=== PATIENT | female | born 1950 | race Caucasian/White ===

== ENCOUNTER 2018-11-10 08:59 | Emergency (ER) | payer MEDICARE, OTHER ==
[2018-11-10] MEDS ORDERED: Sodium Chloride 0.9% 10 ML Syringe FLUSH PRN (09:47)
[2018-11-10] MEDS ORDERED: fentaNYL 100 MCG/2 ML SDV IVPUSH ONE (09:47)
[2018-11-10] MEDS ORDERED: Cyclobenzaprine 10 MG Tab PO ONE (09:48)
--- NOTE | 2018-11-10 09:52 | EDM.PDOC ---
ED HPI GENERAL MEDICAL PROBLEM - General Chief Complaint: Back Pain or Injury Stated Complaint: POSSIBLE BROKEN RIBS Time Seen by Provider: 11/10/18 09:44 Source of Information: Reports: Patient, Family, RN Notes Reviewed History Limitations: Reports: No Limitations - History of Present Illness INITIAL COMMENTS - FREE TEXT/NARRATIVE: 67-year-old female presents emergency department today complaint of left flank pain, she fell approximately 5 days ago does have bruising on that side, her biggest issue is that her pain is not controlled she feels her abdomen has distended some and she's having difficulty taking a deep breath secondary to the pain Left Lower Posterior Back Pain Score (Numeric/FACES): 8 - Related Data Allergies Allergy/AdvReac Type Severity Reaction Status Date / Time No Known Allergies Allergy Verified 09/29/18 12:46 Home Meds: Home Meds Insulin Degludec [Tresiba Flextouch U-100] 15 unit SUBCUT DAILY 11/10/18 [ History] Loratadine [Claritin] 10 mg PO DAILY 11/10/18 [History] Omeprazole 40 mg PO DAILY 11/10/18 [History] Ranitidine HCl [Ranitidine] 150 mg PO DAILY 11/10/18 [History] SitaGLIPtin [Januvia] 100 mg PO DAILY 11/10/18 [History] atorvaSTATin [Lipitor] 10 mg PO DAILY 11/10/18 [History] metFORMIN [Glucophage XR] 10 mg PO BID 11/10/18 [History] Past Medical History Cardiovascular History: Reports: High Cholesterol, Hypertension Gastrointestinal History: Reports: GER[employer] History: Reports: Endocrine/Metabolic History: Reports: Diabetes, Type II - Past Surgical History HEENT Surgical History: Reports: Cataract Surgery Female Surgical History: Reports: Section Social & Family History - Tobacco Use Smoking Status *Q: Never Smoker - Caffeine Use Caffeine Use: Reports: Coffee - Alcohol Use Days Per Week of Alcohol Use: 7 Number of Drinks Per Day: 4 Total Drinks Per Week: 28 - Recreational Drug Use Recreational Drug Use: No ED ROS GENERAL - Review of Systems Review Of Systems: See Below Constitutional: Reports: No Symptoms HEENT: Reports: No Symptoms Respiratory: Reports: Shortness of Breath (With a deep breath) Cardiovascular: Reports: Chest Pain GI/Abdominal: Reports: Abdominal Pain (Left-sided left flank), Distension. Denies: Nausea, Vomiting : Reports: No Symptoms Musculoskeletal: Reports: No Symptoms Skin: Reports: Bruising (Left sided) Neurological: Reports: No Symptoms ED EXAM, GI/ABD - Physical Exam Exam: See Below Exam Limited By: No Limitations General Appearance: Alert, WD/WN, No Apparent Distress Respiratory/Chest: No Respiratory Distress GI/Abdominal Exam: Normal Bowel Sounds, Soft, No Distention, Tender (Along the left flank area) Course - Vital Signs Last Recorded V/S: Last Vital Signs Temp 96.5 F 11/10/18 09:17 Pulse 82 11/10/18 09:17 Resp 18 11/10/18 09:17 BP 202/79 H 11/10/18 09:17 Pulse Ox 97 11/10/18 09:17 - Orders/Labs/Meds Orders: Active Orders 24 hr Category Date Time Status Peripheral IV Care [RC] . DIRECTED Care 11/10/18 09:48 Active Lactated Ringers [Ringers, Lactated] 1,000 ml Med 11/10/18 10:00 Active IV .BOLUS Sodium Chloride 0.9% [Saline Flush] Med 11/10/18 09:47 Active 10 ml FLUSH ASDIRECTED PRN Peripheral IV Insertion Adult [OM.PC] Urgent Oth 11/10/18 09:47 Ordered Medication Orders Lactated Ringer's (Ringers, Lactated) 1,000 mls @ 500 mls/hr IV .BOLUS SARA Last Admin: 11/10/18 10:00 Dose: 500 mls/hr Sodium Chloride (Saline Flush) 10 ml FLUSH ASDIRECTED PRN PRN Reason: Keep Vein Open Labs: Laboratory Tests 11/10/18 11/10/18 Range/Units 09:55 09:55 WBC 7.4 (4.5-11.0) K/uL RBC 3.84 (3.30-5.50) M/uL Hgb 12.8 (12.0-15.0) g/dL Hct 39.3 (36.0-48.0) % MCV 102 H (80-98) fL MCH 33 H (27-31) pg MCHC 33 (32-36) % Plt Count 244 (150-400) K/uL Neut % (Auto) 62 (36-66) % Lymph % (Auto) 26 (24-44) % Titus % (Auto) 11 H (2-6) % Eos % (Auto) 1 L (2-4) % Baso % (Auto) 0 (0-1) % Sodium 143 (140-148) mmol/L Potassium 3.9 (3.6-5.2) mmol/L Chloride 104 (100-108) mmol/L Carbon Dioxide 29 (21-32) mmol/L Anion Gap 10.4 (5.0-14.0) mmol/L BUN 9 (7-18) mg/dL Creatinine 0.8 (0.6-1.0) mg/dL Est Cr Clr Drug Dosing 66.90 mL/min Estimated GFR (MDRD) > 60 (>60) Glucose 127 H (74-106) mg/dL Calcium 9.1 (8.5-10.1) mg/dL Meds: Medications Generic Name Dose Route Start Last Admin Trade Name Freq PRN Reason Stop Dose Admin Lactated Ringer's 1,000 mls @ 500 mls/hr 11/10/18 10:00 11/10/18 10:00 Ringers, Lactated IV 500 mls/hr .BOLUS SARA Administration Sodium Chloride 10 ml 11/10/18 09:47 Saline Flush FLUSH ASDIRECTED PRN Keep Vein Open Discontinued Medications Generic Name Dose Route Start Last Admin Trade Name Freq PRN Reason Stop Dose Admin Cyclobenzaprine HCl 10 mg 11/10/18 09:48 11/10/18 09:58 Flexeril PO 11/10/18 09:49 10 mg ONETIME ONE Administration Fentanyl 50 mcg 11/10/18 09:47 11/10/18 09:58 Sublimaze IVPUSH 11/10/18 09:48 50 mcg ONETIME ONE Administration Sodium Chloride 77 mls @ 3.5 mls/sec 11/10/18 09:53 11/10/18 10:08 Normal Saline IV 11/10/18 09:54 3.5 mls/sec ONETIME ONE Administration Iopamidol 123 ml 11/10/18 09:53 11/10/18 10:08 Isovue-300 (61%) IV 11/10/18 09:54 123 ml ONETIME ONE Administration Sodium Chloride 10 ml 11/10/18 09:53 11/10/18 10:04 Saline Flush FLUSH 11/10/18 09:54 10 ml ONETIME ONE Administration Departure - Departure Time of Disposition: 11:20 Disposition: Home, Self-Care 01 Condition: Fair Clinical Impression: Contusion, flank Qualifiers: Encounter type: initial encounter Qualified Code(s): S30.1XXA - Contusion of abdominal wall, initial encounter - Discharge Information Referrals: Crystal Nunez MD [Primary Care Provider] - Forms: ED Department Discharge Additional Instructions: Continue to use ibuprofen or Motrin for baseline pain control, use hydrocodone for breakthrough pain, use the Flexeril as needed for muscle relaxants, Please followup with your primary care provider in 5-7 days if not better, please call return to the emergency department with worsening of symptoms. - My Orders Last 24 Hours: My Active Orders 11/10/18 09:47 Sodium Chloride 0.9% [Saline Flush] 10 ml FLUSH ASDIRECTED PRN Peripheral IV Insertion Adult [OM.PC] Urgent 11/10/18 09:48 Peripheral IV Care [RC] . DIRECTED 11/10/18 10:00 Lactated Ringers [Ringers, Lactated] 1,000 ml IV .BOLUS - Assessment/Plan Last 24 Hours: My Active Orders 11/10/18 09:47 Sodium Chloride 0.9% [Saline Flush] 10 ml FLUSH ASDIRECTED PRN Peripheral IV Insertion Adult [OM.PC] Urgent 11/10/18 09:48 Peripheral IV Care [RC] . DIRECTED 11/10/18 10:00 Lactated Ringers [Ringers, Lactated] 1,000 ml IV .BOLUS Plan: Assessment Acuity = acute Site and laterality = contusion left flank Etiology = secondary to trauma Manifestations = [muscle spasms Location of injury = Home Lab values = [CBC, BMP unremarkable CT scan of the abdomen shows no injury Plan She had good relief with fentanyl and Flexeril in the emergency department, discharged home with hydrocodone 5/325 one tab by mouth 3 times a day when necessary total #10 also Flexeril 10 mg by mouth 3 times a day when necessary total #15 follow-up primary care 5-7 days if no improvement This note was dictated using [employer] recognition software please call with any questions on syntax or grammar.
[2018-11-10] MEDS ORDERED: Iopamidol 500 ML BOTTLE IV ONE (09:53)
[2018-11-10] MEDS: Sodium Chloride 0.9% 10 ML Syringe FLUSH ONE ×2 (09:59→10:04)
[2018-11-10] MEDS ORDERED: Lactated Ringers 1,000 ML IV SCH (10:00)
--- NOTE | 2018-11-10 10:49 | CRLCT ---
INDICATION: Trauma, left flank pain. TECHNIQUE: A CT volumetric acquisition was performed of the abdomen and pelvis during intravenous infusion of 123 cc of Isovue-300 nonionic intravenous contrast. COMPARISON: CT abdomen pelvis dated 09/29/2018 FINDINGS: There is no evidence pulmonary contusion or pneumothorax. There is no evidence of pericardial fluid or pleural fluid. There is minimal linear subsegmental atelectasis within the lung bases. There is mild generalized hepatic steatosis. There is no evidence of contusion or subcapsular hematoma within the liver or spleen. The pancreas appears normal. The gallbladder and bile ducts appear normal. The right kidney has normal morphology. 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 There is no evidence of contusion or hemorrhage within either kidney. There is no evidence retroperitoneal bleeding. 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 The small intestine appears normal. The appendix is visualized in the upper mid pelvis and appears normal. The patient`s colon also appears normal. Uterus and ovaries are of normal size. The urinary bladder appears intact. No fractures are noted within the pelvis or lumbar spine. There is disc degeneration at L5-S1. IMPRESSION: Stable CT scan of the abdomen pelvis with no evidence of visceral organ trauma. No evidence of left splenic or renal injury. Dictated by Олег Pang MD @ 11/10/2018 10:49:02 AM Please note that all CT scans at this facility use dose modulation, iterative reconstruction, and/or weight-based dosing when appropriate to reduce radiation dose to as low as reasonably achievable. Dictated by: Олег Pang MD @ 11/10/2018 10:49:10 (Electronically Signed)
== END 2018-11-10 11:28 | disposition home or self-care (01) ==
LOC: JP.ED 08:59
DX: S30.1XXA Contusion of abdominal wall, initial encounter (principal); M62.838 Other muscle spasm; I10 Essential (primary) hypertension; E11.9 Type 2 diabetes mellitus without complications; K21.9 Gastro-esophageal reflux disease without esophagitis; Z98.49 Cataract extraction status, unspecified eye; Z79.4 Long term (current) use of insulin; Z79.899 Other long term (current) drug therapy; W19.XXXA Unspecified fall, initial encounter
CPT/HCPCS: 36415; 74177; 80048; 85025; 96361; 96374; 99284; A9270; J3010; J7030; J7120; Q9967; 99283

== ENCOUNTER 2020-07-31 10:03 | Day surgery (SDC) | payer MEDICARE, OTHER ==
[~2020-07-31 10:03] MED LIST: Dextrose 5%-Lactated Ringers 1,000 ML IV SCH
[2020-07-31] MEDS ORDERED: Midazolam 1 MG/ML 2 ML SDV ONE (12:14)
[2020-07-31] MEDS ORDERED: fentaNYL 100 MCG/2 ML SDV ONE (12:14)
[2020-07-31] MEDS ORDERED: Propofol 200 MG/20 ML SDV ONE ×4 (12:14→14:34)
--- NOTE | 2020-08-14 16:36 | OR ---
DATE OF PROCEDURE: 07/31/2020 SURGEON: Thaddeus Manuel MD PREOPERATIVE DIAGNOSIS: History of melena and mucus-filled stool. POSTOPERATIVE DIAGNOSIS: 1. Upper endoscopy showing mild antral gastritis. 2. Flexible colonoscopy with multiple colorectal polyps including large rectal polyp. OPERATIVE PROCEDURES: 1. Esophagogastroduodenoscopy with antral biopsies for CLOtest. 2. Flexible colonoscopy with removal of multiple polyps by snare technique including large rectal polyp removed in fragments. ANESTHESIA: IV sedation. INDICATION FOR PROCEDURE: This is a 69-year-old female presenting with some melena as well as mucus-filled stools. Plan is to proceed with upper endoscopy with biopsies and/or polypectomy as indicated. Potential risks including bleeding and perforation were discussed, and the patient wishes to proceed. DETAILS OF PROCEDURE: The patient was taken to the operating room, placed in a left lateral decubitus position. IV sedation was administered, after which the upper GI endoscope was passed orally through the length of the esophagus into the stomach with retroflexion view of the fundus, and thereafter through the pyloric channel into the junction of the 3rd and 4th portions of the duodenum. Findings included normal hypopharynx, larynx, upper esophageal sphincter, and esophageal body. At the EG junction, no significant inflammation or hiatal hernia was noted. Within the stomach, there was some patchy redness in the antrum, otherwise the pyloric channel and proximal duodenum were unremarkable. At this point, biopsies were obtained from the antrum and sent for CLOtest for H pylori, minimal bleeding from biopsy sites was seen and the procedure then concluded. Attention was then taken to the colonoscopy. The initial digital rectal exam was performed, it was unremarkable. Colonoscope was then passed into the rectum with retroflexion revealing uncomplicated hemorrhoidal columns. Roughly 10 cm from the dentate line, the patient was noted to have a large rectal polyp. There were also 2 small rectal polyps present, and passed the scope to the level of the cecum, the prep was noted to be fairly good. There was a small hepatic flexure polyp and a polyp in the junction of the descending and sigmoid colon. These along with the polyps 2 and 3 in the rectum were all quite small and removed by means of cautery snare technique and sent for histologic evaluation. Apart from that, there were no areas of colitis or diverticular disease noted. The larger rectal polyp was removed with multiple fragments by means of cautery snare technique. Each of the fragments were retrieved and together sent for histologic evaluation. At the end of the procedure, there was a large area of polypectomy with good hemostasis. This appeared to be clear of any obvious polypoid tissue at the remaining edges of the area of resection. The procedure was then concluded. We will see the patient back next week and if there is invasive carcinoma within the polyp, then that area of polypectomy would need to be reexcised by means of a transanal excision. If it is adenomatous polyp up to including some high-grade dysplasia, one would need to repeat the colonoscopy in perhaps 6 months to make sure that there is a local recurrence of the process. We will see the patient back next week to review the pathologic findings and go over the subsequent followup and treatment plan. Thaddeus Manuel MD /[id number]
== END 2020-07-31 15:48 | disposition home or self-care (01) ==
LOC: JP.SDS 10:03
PROVIDERS: ATTEND Surgery
DX: D12.4 Benign neoplasm of descending colon (principal); D12.3 Benign neoplasm of transverse colon; D12.5 Benign neoplasm of sigmoid colon; D12.8 Benign neoplasm of rectum; K29.70 Gastritis, unspecified, without bleeding; K64.9 Unspecified hemorrhoids; E11.9 Type 2 diabetes mellitus without complications; E78.5 Hyperlipidemia, unspecified; I10 Essential (primary) hypertension; I73.9 Peripheral vascular disease, unspecified
CPT/HCPCS: 43239; 45385; 87081; 88305; J2250; J2704; J3010; J7121

== ENCOUNTER 2021-02-22 08:49 | Day surgery (SDC) | payer MEDICARE, OTHER ==
[~2021-02-22 08:49] MED LIST changes: +Midazolam 1 MG/ML 2 ML SDV ONE; +Propofol 200 MG/20 ML SDV ONE; +fentaNYL 100 MCG/2 ML SDV ONE
[2021-02-22] MEDS ORDERED: Propofol 200 MG/20 ML SDV ONE ×2 (11:27→11:37)
--- NOTE | 2021-02-26 11:15 | OR ---
DATE OF PROCEDURE: 02/22/2021 SURGEON: Thaddeus Manuel MD PREOPERATIVE DIAGNOSIS: History of multiple colon polyps with large rectal polyp removed in a piecemeal manner in July 2020. POSTOPERATIVE DIAGNOSES: 1. History of multiple colon polyps with large rectal polyp removed in a piecemeal manner in July 2020. 2. Three additional polyps and one reddened elongated ridge of colorectal tissue in the rectum. PROCEDURE PERFORMED: Flexible colonoscopy with: 1. Polypectomy by snare technique x3. 2. Biopsies of reddened ridge of low rectum. ANESTHESIA: IV sedation. INDICATION FOR PROCEDURE: A 70-year-old female presenting for followup colonoscopy. This past July, between 6 and 7 months ago, the patient underwent polypectomy with multiple polyps having been removed and one larger polyp in the relatively low rectum was removed by piecemeal manner, but there is still some question as to whether there has to be completeness of that removal. She is to undergo a followup colonoscopy at this time with biopsies or polypectomy as indicated. Potential risks including bleeding and perforation were discussed, and the patient wishes to proceed. DETAILS OF PROCEDURE: The patient was taken to the operating room and placed in a left lateral decubitus position. IV sedation was administered after which the initial digital rectal exam was performed and was unremarkable. Colonoscope was then passed to the level of the rectum with retroflexion revealing uncomplicated hemorrhoidal columns. The scope was eventually passed to the level of the cecum. The prep once again was reasonably adequate, but there was a fair bit of liquid stool which might have obscured some small polyps. This was reportedly on the previous colonoscopy as well. To that level, 3 additional polyps were identified, one in the distal sigmoid colon, one in the colon at 55 cm from the dentate line, and one in the mid rectum. These were all removed by means of polypectomy snare technique. These were all fairly small and likely were, at the time of previous examination, covered with some liquid stool. Just above the dentate line, there was a reddened ridge of mucosa I could find, perhaps 20% of the rectal circumference. Multiple attempts at obtaining a snare around this were unsuccessful due to the relatively flat nature of the lesion. Given this, multiple biopsies were obtained, and these were then sent for histologic evaluation. The procedure was then concluded. The plan will be to await the pathology on the low rectal biopsies. If this shows adenomatous tissue, the patient will likely need a secondary procedure. This would likely be amenable to an endoscopic excision with the aid of injection of saline underneath the mucosal field allowing it to be more raised. We will await the pathology report and call the patient. If the biopsies at the low rectal area come back neoplastic, then a colonoscopy will likely be done in one year given the multitude of polyps she is presenting with. Thaddeus Manuel MD /[id number]
== END 2021-02-22 12:47 | disposition home or self-care (01) ==
LOC: JP.SDS 08:49
PROVIDERS: ATTEND Surgery
DX: Z12.11 Encounter for screening for malignant neoplasm of colon (principal); D12.5 Benign neoplasm of sigmoid colon; K62.1 Rectal polyp; K64.9 Unspecified hemorrhoids; I10 Essential (primary) hypertension; E11.9 Type 2 diabetes mellitus without complications
CPT/HCPCS: 45385; 88305; J2250; J2704; J3010; J7121

== ENCOUNTER 2021-02-28 09:54 | Inpatient (IN) | payer MEDICARE, OTHER ==
[2021-02-28] MEDS ORDERED: Sodium Chloride 0.9% 1,000 ML IV SCH ×3 (10:15→12:45)
[2021-02-28] MEDS ORDERED: Ondansetron 4 MG/2 ML SDV IVPUSH ONE (10:23)
--- NOTE | 2021-02-28 10:28 | EDM.PDOC ---
ED HPI GENERAL MEDICAL PROBLEM - General Chief Complaint: Abdominal Pain Stated Complaint: STOMACH PAIN, VOMITING Time Seen by Provider: 02/28/21 10:24 Source of Information: Reports: Patient History Limitations: Reports: No Limitations - History of Present Illness INITIAL COMMENTS - FREE TEXT/NARRATIVE: pt arrived with severe generalized abdomanal pain. She has not held fluids down for 3 days. She is not passing gas and she has not had a stool since the . She did have a co,onoscopy done by Dr Manuel on the Feb. She did have 5 polyps removed at that time. Onset: Other ( started having problems about 3 days after the colonoscopy was done. ) Duration: Day(s): Location: Reports: Abdomen, Generalized Associated Symptoms: Reports: Loss of Appetite, Nausea/Vomiting, Weakness Abdomen Pain Score (Numeric/FACES): 7 - Related Data Allergies Allergy/AdvReac Type Severity Reaction Status Date / Time No Known Allergies Allergy Verified 02/28/21 10:45 Home Meds: Home Meds Omeprazole 40 mg PO DAILY 11/10/18 [History] atorvaSTATin [Lipitor] 80 mg PO DAILY 11/10/18 [History] metFORMIN [Glucophage XR] 500 mg PO BID 11/10/18 [History] Clopidogrel Bisulfate [Clopidogrel] 75 mg PO DAILY 07/26/20 [History] Insulin NPH Hum/Reg Insulin Hm [Novolin 70-30 Flexpen] 15 unit SQ BID 07/26/20 [History] Lisinopril/Hydrochlorothiazide [Lisinopril-Hctz 20-25 mg Tab] 1 each PO DAILY 07/26/20 [History] Past Medical History HEENT History: Reports: None Cardiovascular History: Reports: High Cholesterol, Hypertension, Other (See Below) Other Cardiovascular History: history of PAD; has stents in bilateral iliac arteries Gastrointestinal History: Reports: GERD Genitourinary History: Reports: None 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: Musculoskeletal History: Reports: Back Pain, Chronic, Fracture Neurological History: Reports: Concussion Endocrine/Metabolic History: Reports: Diabetes, Type II Dermatologic History: Reports: Eczema - Infectious Disease History Infectious Disease History: Reports: Chicken Pox, Mumps - Past Surgical History HEENT Surgical History: Reports: Cataract Surgery Cardiovascular Surgical History: Reports: None GI Surgical History: Reports: None, Colonoscopy, EGD, Polypectomy Female Surgical History: Reports: Section, Tubal Ligation Endocrine Surgical History: Reports: None Neurological Surgical History: Reports: None Musculoskeletal Surgical History: Reports: None Social & Family History - Family History Family Medical History: No Pertinent Family History - Caffeine Use Caffeine Use: Reports: Coffee ED ROS GENERAL - Review of Systems Review Of Systems: See Below Constitutional: Reports: No Symptoms HEENT: Reports: No Symptoms, Other (mouth is very dry. ) Respiratory: Reports: No Symptoms Cardiovascular: Reports: No Symptoms Endocrine: Reports: No Symptoms GI/Abdominal: Reports: Abdominal Pain, Nausea, Vomiting : Reports: No Symptoms Musculoskeletal: Reports: No Symptoms Skin: Reports: No Symptoms Neurological: Reports: No Symptoms, Dizziness, Weakness ED EXAM, GI/ABD - Physical Exam Exam: See Below Text/Narrative:: pt arrived with generalized abdomanal pain. She had a colonoscopy on the . # days after that she became nauseated and started having abdomanal pain. She has not had a bm since the . She has not been passing gas. She has not held anything down for 3 days. Exam Limited By: No Limitations General Appearance: Alert, Anxious, Severe Distress, Other (pt appears very dehydrated. She does admit to regular use of etoh. ) Ears: Normal TMs Nose: Normal Inspection Throat/Mouth: Other (mucous membranes are very dry. ) Head: Atraumatic Neck: Normal Inspection Respiratory/Chest: No Respiratory Distress Cardiovascular: Regular Rate, Rhythm, Tachycardia GI/Abdominal Exam: Other (pt has diffuse tenderness. ) (Female) Exam: Deferred Rectal (Female) Exam: Deferred Back Exam: Normal Inspection Extremities: Normal Inspection Neurological: Alert, Oriented, Normal Cognition Psychiatric: Anxious Course - Vital Signs Last Recorded V/S: Last Vital Signs Temp 36.6 C 02/28/21 12:21 Pulse 115 H 02/28/21 12:21 Resp 16 02/28/21 12:21 BP 130/77 02/28/21 12:21 Pulse Ox 99 02/28/21 12:21 - Orders/Labs/Meds Orders: Active Orders 24 hr Category Date Time Status Abdomen Ltd [US] Stat Exams 02/28/21 11:55 Ordered GLUCOSE RANDOM [CHEM] Stat Lab 02/28/21 12:29 Received UA W/MICROSCOPIC [URIN] Urgent Lab 02/28/21 10:02 Ordered Dextrose 50% in Water Med 02/28/21 11:12 Active 50 ml IVPUSH ASDIRECTED PRN Dextrose 50% in Water Med 02/28/21 11:13 Active 50 ml IVPUSH ASDIRECTED PRN Glucagon,Human Recombinant [GlucaGen] Med 02/28/21 11:12 Active 1 mg IM ASDIRECTED PRN Glucagon,Human Recombinant [GlucaGen] Med 02/28/21 11:13 Active 1 mg IM ASDIRECTED PRN Insulin Regular in 0.9 % NACL [Myxredlin in NS 100 UNIT Med 02/28/21 12:45 Ordered /100 ML] 100 unit in 100 ml IV ASDIRECTED Sodium Chloride 0.9% [Normal Saline] 1,000 ml Med 02/28/21 10:15 Active IV ASDIRECTED Sodium Chloride 0.9% [Normal Saline] 1,000 ml Med 02/28/21 10:45 Active IV ASDIRECTED Sodium Chloride 0.9% [Normal Saline] 1,000 ml Med 02/28/21 12:45 Active IV ASDIRECTED Medication Orders Dextrose/Water (50% Dextrose In Water 50 Ml Syringe) 50 ml IVPUSH ASDIRECTED PRN PRN Reason: Hypoglycemia Dextrose/Water (50% Dextrose In Water 50 Ml Syringe) 50 ml IVPUSH ASDIRECTED PRN PRN Reason: Hypoglycemia Glucagon (Glucagon,Human Recombinant 1 Mg Vial) 1 mg IM ASDIRECTED PRN PRN Reason: Hypoglycemia Glucagon (Glucagon,Human Recombinant 1 Mg Vial) 1 mg IM ASDIRECTED PRN PRN Reason: Hypoglycemia Sodium Chloride (Normal Saline) 1,000 mls @ 999 mls/hr IV ASDIRECTED [facility] Last Admin: 02/28/21 10:29 Dose: 999 mls/hr Documented by: [email or web address] Sodium Chloride (Normal Saline) 1,000 mls @ 999 mls/hr IV ASDIRECTED SARA Last Admin: 02/28/21 11:41 Dose: 999 mls/hr Documented by: NAVARROBRE Sodium Chloride (Normal Saline) 1,000 mls @ 500 mls/hr IV ASDIRECTED SARA Insulin Regular in 0.9 % NACL (Myxredlin In Ns 100 Unit/100 Ml) 100 unit in 100 mls @ 0 mls/hr IV ASDIRECTED [facility] Labs: Laboratory Tests 02/28/21 02/28/21 02/28/21 Range/Units 10:20 10:20 10:20 WBC 9.6 (4.5-11.0) K/uL RBC 4.18 (3.30-5.50) M/uL Hgb 13.3 (12.0-15.0) g/dL Hct 41.5 (36.0-48.0) % MCV 99 H (80-98) fL MCH 32 H (27-31) pg MCHC 32 (32-36) % Plt Count 224 (150-400) K/uL Neut % (Auto) 81.5 H (36-66) % Lymph % (Auto) 7.0 L (24-44) % [place] % (Auto) 11.1 H (2-6) % Eos % (Auto) 0.0 L (2-4) % Baso % (Auto) 0.4 (0-1) % VBG pH (7.350-7.450) Sodium (140-148) mmol/L Potassium (3.6-5.2) mmol/L Chloride (100-108) mmol/L Carbon Dioxide (21-32) mmol/L Anion Gap (5.0-14.0) mmol/L BUN (7-18) mg/dL Creatinine (0.6-1.0) mg/dL Est Cr Clr Drug Dosing mL/min Estimated GFR (MDRD) (>60) BUN/Creatinine Ratio Glucose (74-106) mg/dL POC Glucose (74-106) mg/dL Lactic Acid (0.7-2.1) mmol/L Calcium (8.5-10.1) mg/dL Total Bilirubin (0.2-1.0) mg/dL AST (15-37) U/L ALT (12-78) U/L Alkaline Phosphatase (46-116) U/L C-Reactive Protein (0.0-0.3) mg/dL Total Protein (6.4-8.2) g/dL Albumin (3.4-5.0) g/dL Globulin (2.3-3.5) g/dL Albumin/Globulin Ratio (1.2-2.2) Amylase (25-115) U/L Lipase (73-393) U/L 02/28/21 02/28/21 02/28/21 Range/Units 10:40 11:11 11:55 WBC (4.5-11.0) K/uL RBC (3.30-5.50) M/uL Hgb (12.0-15.0) g/dL Hct (36.0-48.0) % MCV (80-98) fL MCH (27-31) pg MCHC (32-36) % Plt Count (150-400) K/uL Neut % (Auto) (36-66) % Lymph % (Auto) (24-44) % [place] % (Auto) (2-6) % Eos % (Auto) (2-4) % Baso % (Auto) (0-1) % VBG pH 7.089 L (7.350-7.450) Sodium (140-148) mmol/L Potassium (3.6-5.2) mmol/L Chloride (100-108) mmol/L Carbon Dioxide (21-32) mmol/L Anion Gap (5.0-14.0) mmol/L BUN (7-18) mg/dL Creatinine (0.6-1.0) mg/dL Est Cr Clr Drug Dosing mL/min Estimated GFR (MDRD) (>60) BUN/Creatinine Ratio Glucose (74-106) mg/dL POC Glucose (74-106) mg/dL Lactic Acid 1.6 (0.7-2.1) mmol/L Calcium (8.5-10.1) mg/dL Total Bilirubin (0.2-1.0) mg/dL AST (15-37) U/L ALT (12-78) U/L Alkaline Phosphatase (46-116) U/L C-Reactive Protein (0.0-0.3) mg/dL Total Protein (6.4-8.2) g/dL Albumin (3.4-5.0) g/dL Globulin (2.3-3.5) g/dL Albumin/Globulin Ratio (1.2-2.2) Amylase 631 H (25-115) U/L Lipase 8941 H (73-393) U/L 02/28/21 Range/Units 12:45 WBC (4.5-11.0) K/uL RBC (3.30-5.50) M/uL Hgb (12.0-15.0) g/dL Hct (36.0-48.0) % MCV (80-98) fL MCH (27-31) pg MCHC (32-36) % Plt Count (150-400) K/uL Neut % (Auto) (36-66) % Lymph % (Auto) (24-44) % [place] % (Auto) (2-6) % Eos % (Auto) (2-4) % Baso % (Auto) (0-1) % VBG pH (7.350-7.450) Sodium (140-148) mmol/L Potassium (3.6-5.2) mmol/L Chloride (100-108) mmol/L Carbon Dioxide (21-32) mmol/L Anion Gap (5.0-14.0) mmol/L BUN (7-18) mg/dL Creatinine (0.6-1.0) mg/dL Est Cr Clr Drug Dosing mL/min Estimated GFR (MDRD) (>60) BUN/Creatinine Ratio Glucose (74-106) mg/dL POC Glucose 403 H* (74-106) mg/dL Lactic Acid (0.7-2.1) mmol/L Calcium (8.5-10.1) mg/dL Total Bilirubin (0.2-1.0) mg/dL AST (15-37) U/L ALT (12-78) U/L Alkaline Phosphatase (46-116) U/L C-Reactive Protein (0.0-0.3) mg/dL Total Protein (6.4-8.2) g/dL Albumin (3.4-5.0) g/dL Globulin (2.3-3.5) g/dL Albumin/Globulin Ratio (1.2-2.2) Amylase (25-115) U/L Lipase (73-393) U/L Meds: Medications Generic Name Dose Route Start Last Admin Trade Name Freq PRN Reason Stop Dose Admin Dextrose/Water 50 ml 02/28/21 11:12 50% Dextrose In Water 50 Ml Syringe IVPUSH ASDIRECTED PRN Hypoglycemia Dextrose/Water 50 ml 02/28/21 11:13 50% Dextrose In Water 50 Ml Syringe IVPUSH ASDIRECTED PRN Hypoglycemia Glucagon 1 mg 02/28/21 11:12 Glucagon,Human Recombinant 1 Mg Vial IM ASDIRECTED PRN Hypoglycemia Glucagon 1 mg 02/28/21 11:13 Glucagon,Human Recombinant 1 Mg Vial IM ASDIRECTED PRN Hypoglycemia Sodium Chloride 1,000 mls @ 999 mls/hr 02/28/21 10:15 02/28/21 10:29 Normal Saline IV 999 mls/hr ASDIRECTED SARA Administration Sodium Chloride 1,000 mls @ 999 mls/hr 02/28/21 10:45 02/28/21 11:41 Normal Saline IV 999 mls/hr ASDIRECTED SARA Administration Sodium Chloride 1,000 mls @ 500 mls/hr 02/28/21 12:45 Normal Saline IV ASDIRECTED [facility] Insulin Regular in 0.9 % NACL 100 unit in 100 mls @ 0 mls/hr 02/28/21 12:45 Myxredlin In Ns 100 Unit/100 Ml IV ASDIRECTED SARA 0.1 UNITS/KG/HR Discontinued Medications Generic Name Dose Route Start Last Admin Trade Name Brandon PRN Reason Stop Dose Admin Hydromorphone HCl 0.5 mg 02/28/21 10:23 02/28/21 10:40 Hydromorphone 0.5 Mg/0.5 Ml Syringe IVPUSH 02/28/21 10:24 0.5 mg ONETIME ONE Administration Hydromorphone HCl 0.5 mg 02/28/21 12:10 Hydromorphone 0.5 Mg/0.5 Ml Syringe IVPUSH 02/28/21 12:11 ONETIME ONE Insulin Human Regular 3 unit 02/28/21 11:12 02/28/21 11:53 Insulin Regular, Human 100 Units/Ml 3 Ml Vial IVPUSH 02/28/21 11:13 3 units ONETIME ONE Administration Insulin Human Regular 3 unit 02/28/21 11:13 02/28/21 11:54 Insulin Regular, Human 100 Units/Ml 3 Ml Vial SUBCUT 02/28/21 11:14 3 unit ONETIME ONE Administration Ondansetron HCl 4 mg 02/28/21 10:23 02/28/21 10:35 Ondansetron 4 Mg/2 Ml Sdv IVPUSH 02/28/21 10:24 4 mg ONETIME ONE Administration - Re-Assessments/Exams Free Text/Narrative Re-Assessment/Exam: 02/28/21 12:23 pt had a elevated creatnine so she had a cat scan of the abdoman without contrast. She was found to have a inflamed pancreas. She does not appear to have a perforation. Hetr bs is 599. Her ph is 7.089. She is on her second liter of f luid. She was given both iv and subq insulin and will probably need an insulin drip. Her amylase and lipase is pending. 02/28/21 12:25 Departure - Departure Time of Disposition: 12:47 Disposition: Admitted As Inpatient 68 Condition: Fair Clinical Impression: Pancreatitis, Diabetic ketoacidosis, Dehydration - Discharge Information Referrals: Lacey Portillo MD [Primary Care Provider] - Forms: ED Department Discharge Sepsis Event Note (ED) - Focused Exam Vital Signs: Vital Signs Temp Pulse Resp BP Pulse Ox 02/28/21 12:21 36.6 C 115 H 16 130/77 99 02/28/21 10:50 35.9 C L 116 H 20 148/74 H 100 - My Orders Last 24 Hours: My Active Orders 02/28/21 10:02 UA W/MICROSCOPIC [URIN] Urgent 02/28/21 10:15 Sodium Chloride 0.9% [Normal Saline] 1,000 ml IV ASDIRECTED 02/28/21 10:45 Sodium Chloride 0.9% [Normal Saline] 1,000 ml IV ASDIRECTED 02/28/21 11:12 Dextrose 50% in Water 50 ml IVPUSH ASDIRECTED PRN Glucagon,Human Recombinant [GlucaGen] 1 mg IM ASDIRECTED PRN 02/28/21 11:13 Dextrose 50% in Water 50 ml IVPUSH ASDIRECTED PRN Glucagon,Human Recombinant [GlucaGen] 1 mg IM ASDIRECTED PRN 02/28/21 11:55 Abdomen Ltd [US] Stat 02/28/21 12:29 GLUCOSE RANDOM [CHEM] Stat 02/28/21 12:45 Insulin Regular in 0.9 % NACL [Myxredlin in NS 100 UNIT/100 ML] 100 unit in 100 ml IV ASDIRECTED Sodium Chloride 0.9% [Normal Saline] 1,000 ml IV ASDIRECTED - Assessment/Plan Last 24 Hours: My Active Orders 02/28/21 10:02 UA W/MICROSCOPIC [URIN] Urgent 02/28/21 10:15 Sodium Chloride 0.9% [Normal Saline] 1,000 ml IV ASDIRECTED 02/28/21 10:45 Sodium Chloride 0.9% [Normal Saline] 1,000 ml IV ASDIRECTED 02/28/21 11:12 Dextrose 50% in Water 50 ml IVPUSH ASDIRECTED PRN Glucagon,Human Recombinant [GlucaGen] 1 mg IM ASDIRECTED PRN 02/28/21 11:13 Dextrose 50% in Water 50 ml IVPUSH ASDIRECTED PRN Glucagon,Human Recombinant [GlucaGen] 1 mg IM ASDIRECTED PRN 02/28/21 11:55 Abdomen Ltd [US] Stat 02/28/21 12:29 GLUCOSE RANDOM [CHEM] Stat 02/28/21 12:45 Insulin Regular in 0.9 % NACL [Myxredlin in NS 100 UNIT/100 ML] 100 unit in 100 ml IV ASDIRECTED Sodium Chloride 0.9% [Normal Saline] 1,000 ml IV ASDIRECTED
[2021-02-28] MEDS: HYDROmorphone 0.5 MG/0.5 ML Syringe IVPUSH ONE (10:40)
[2021-02-28] MEDS ORDERED: Glucagon,Human Recombinant 1 MG Vial IM PRN ×2 (11:12→11:13)
[2021-02-28] MEDS ORDERED: Insulin Regular, Human 100 Units/ML 3 ML Vial IVPUSH ONE (11:12)
[2021-02-28] MEDS ORDERED: 50% Dextrose in Water 50 ML Syringe IVPUSH PRN ×3 (11:12→13:11)
[2021-02-28] MEDS ORDERED: Insulin Regular, Human 100 Units/ML 3 ML Vial SUBCUT ONE (11:13)
--- NOTE | 2021-02-28 11:58 | CT ---
Abdomen Pelvis wo Cont CLINICAL HISTORY: Abdominal pain post colonoscopy COMPARISON: 2019. TECHNIQUE: Axial tomographic images are obtained from the dome of the diaphragm to the pubic symphysis without IV contrast enhancement. No oral contrast was used. The dosage reduction and iterative reconstruction techniques employed. FINDINGS: The lung bases are clear. No free air is identified. There is some diffuse fatty infiltration throughout the liver. There is mild nonspecific gallbladder distention.. The spleen has a normal size and shape. The pancreas is diffusely ill-defined. There is moderate stranding in the peripancreatic fat. There is some thickening and ill-definition of the duodenal loop. There is some stranding in the mesenteric fat extending down to the level of the umbilicus. There is a stable 2 cm low-attenuation nodule in the left adrenal gland with for focal calcification. The kidneys show no mass or hydronephrosis. There is some stranding in the perinephric fat on the left which may be related to pancreatitis. The aorta shows diffuse calcification without aneurysm. There is a long stent in the right common and external iliac artery. There is no suspicious retroperitoneal adenopathy. IMPRESSION: Diffuse changes of acute pancreatitis Diffuse inflammatory changes involving the duodenal loop Stable benign-appearing left adrenal nodule Moderate fatty infiltration the liver
[2021-02-28] MEDS ORDERED: HYDROmorphone 0.5 MG/0.5 ML Syringe IVPUSH ONE (12:10)
[2021-02-28] MEDS ORDERED: Potassium Chloride 20 MEQ in Premix Bag 1 BAG IV PRN ×4 (13:11)
[2021-02-28] MEDS ORDERED: Potassium Chloride 10% 20 MEQ/15 ML Soln 15 ML UD Cup PO PRN (13:11)
[2021-02-28] MEDS ORDERED: Magnesium Sulfate/Water 50 ML IV PRN (13:11)
[2021-02-28] MEDS ORDERED: Sodium Phosphate 60 MMOLE in Sodium Chloride 0.9% 250 ML IV PRN (13:11)
[2021-02-28] MEDS ORDERED: Sodium Chloride 0.9% 2,000 ML IV PRN (13:11)
--- NOTE | 2021-02-28 13:23 | PCM.HP.2 ---
H&P History of Present Illness - General Date of Service: 02/28/21 Admit Problem/Dx: Admission Diagnosis/Problem Admission Diagnosis/Problem Ketoacidosis Source of Information: Patient, Provider, RN Notes Reviewed History Limitations: Reports: No Limitations - History of Present Illness Initial Comments - Free Text/Narative: Ms. Aguirre is a 70-year-old woman who was admitted through the emergency department with abdominal pain, secondary to pancreatitis and diabetic ketoaci dosis. She has a known history of type 2 diabetes mellitus and denies any previous history of ketoacidosis. She underwent a colonoscopy last week and she reports since then she has not felt well with pain in her mid abdomen, as well as nausea and vomiting. Because of worsening symptoms she presented to the emergency department for further evaluation. CT scan of the abdomen shows evidence of acute pancreatitis with no other obvious abnormalities. Lipase and amylase levels are both significantly elevated. Laboratory studies also showed evidence of marked hyperglycemia associated with significant ketoacidosis. She has been started on continuous infusion of IV insulin while in the emergency department and has received several large fluid boluses. Abdomen Pain Score (Numeric/FACES): 7 - Related Data Allergies/Adverse Reactions: Allergies Allergy/AdvReac Type Severity Reaction Status Date / Time No Known Allergies Allergy Verified 02/28/21 10:45 Home Medications: Home Meds Omeprazole 40 mg PO DAILY 11/10/18 [History] atorvaSTATin [Lipitor] 80 mg PO DAILY 11/10/18 [History] metFORMIN [Glucophage XR] 500 mg PO BID 11/10/18 [History] Clopidogrel Bisulfate [Clopidogrel] 75 mg PO DAILY 07/26/20 [History] Insulin NPH Hum/Reg Insulin Hm [Novolin 70-30 Flexpen] 15 unit SQ BID 07/26/20 [History] Lisinopril/Hydrochlorothiazide [Lisinopril-Hctz 20-25 mg Tab] 1 each PO DAILY 07/26/20 [History] Past Medical History HEENT History: Reports: None Cardiovascular History: Reports: High Cholesterol, Hypertension, Other (See Below) Other Cardiovascular History: history of PAD; has stents in bilateral iliac arteries Gastrointestinal History: Reports: GERD Genitourinary History: Reports: None 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: Musculoskeletal History: Reports: Back Pain, Chronic, Fracture Neurological History: Reports: Concussion Endocrine/Metabolic History: Reports: Diabetes, Type II Dermatologic History: Reports: Eczema - Infectious Disease History Infectious Disease History: Reports: Chicken Pox, Mumps - Past Surgical History HEENT Surgical History: Reports: Cataract Surgery Cardiovascular Surgical History: Reports: None GI Surgical History: Reports: None, Colonoscopy, EGD, Polypectomy Female Surgical History: Reports: Section, Tubal Ligation Endocrine Surgical History: Reports: None Neurological Surgical History: Reports: None Musculoskeletal Surgical History: Reports: None Social & Family History - Family History Family Medical History: No Pertinent Family History - Tobacco Use Tobacco Use Status *Q: Former Tobacco User Years of Tobacco use: 40 Packs/Tins Daily: 2 Used Tobacco, but Quit: Yes Month/Year Tobacco Last Used: 2017 - Caffeine Use Caffeine Use: Reports: Coffee Other Caffeine Use: 2-3 cups per day - Alcohol Use Days Per Week of Alcohol Use: 5 Number of Drinks Per Day: 3 Total Drinks Per Week: 15 - Recreational Drug Use Recreational Drug Use: Yes H&P Review of Systems - Review of Systems: Review Of Systems: See Below General: Reports: Malaise, Weakness, Fatigue, Decreased Appetite. Denies: Fever, Chills HEENT: Reports: No Symptoms Pulmonary: Reports: No Symptoms Cardiovascular: Reports: No Symptoms Gastrointestinal: Reports: Abdominal Pain, Anorexia, Nausea, Vomiting. Denies: Difficulty Swallowing, Distension, Hematemesis, Hematochezia, Melena, Mucous in Stool Genitourinary: Reports: No Symptoms Musculoskeletal: Reports: No Symptoms Skin: Reports: No Symptoms Psychiatric: Reports: No Symptoms Neurological: Reports: No Symptoms Hematologic/Lymphatic: Reports: No Symptoms Immunologic: Reports: No Symptoms Exam - Exam Exam: See Below - Vital Signs Vital Signs: Last Vital Signs Temp 97.9 F 02/28/21 12:21 Pulse 115 H 02/28/21 12:21 Resp 16 02/28/21 12:21 BP 130/77 02/28/21 12:21 Pulse Ox 99 02/28/21 12:21 Weight: 183 lb - Exam Quality Assessment: DVT Prophylaxis General: Alert, Oriented, Cooperative, Moderate Distress HEENT: Conjunctiva Clear, Hearing Intact, Normal Nasal Septum, Posterior Pharynx Clear, Pupils Equal. No: Mucosa Moist & [place] Neck: Supple, Trachea Midline, +2 Carotid Pulse wo Bruit Lungs: Clear to Auscultation, Normal Respiratory Effort Cardiovascular: Regular Rhythm, Normal S1, Normal S2, Tachycardia. No: Systolic Murmur, Diastolic Murmur GI/Abdominal Exam: Soft, No Organomegaly, Distended, Tender. No: Guarding, Rigid, Rebound Back Exam: Normal Inspection, Full Range of Motion Extremities: Non-Tender, No Pedal Edema Skin: Warm, Dry, Intact Neurological: Cranial Nerves Intact, Strength Equal Bilateral, Normal Speech, Normal Tone, Sensation Intact. No: Focal Deficit Neuro Extensive - Mental Status: Alert, Oriented x3, Normal Mood/Affect, Normal Cognition, Memory Intact - Patient Data Lab Results Last 24 hrs: Laboratory Results - last 24 hr 02/28/21 02/28/21 02/28/21 Range/Units 10:20 10:20 10:20 WBC 9.6 (4.5-11.0) K/uL RBC 4.18 (3.30-5.50) M/uL Hgb 13.3 (12.0-15.0) g/dL Hct 41.5 (36.0-48.0) % MCV 99 H (80-98) fL MCH 32 H (27-31) pg MCHC 32 (32-36) % Plt Count 224 (150-400) K/uL Neut % (Auto) 81.5 H (36-66) % Lymph % (Auto) 7.0 L (24-44) % [place] % (Auto) 11.1 H (2-6) % Eos % (Auto) 0.0 L (2-4) % Baso % (Auto) 0.4 (0-1) % VBG pH (7.350-7.450) Sodium (140-148) mmol/L Potassium (3.6-5.2) mmol/L Chloride (100-108) mmol/L Carbon Dioxide (21-32) mmol/L Anion Gap (5.0-14.0) mmol/L BUN (7-18) mg/dL Creatinine (0.6-1.0) mg/dL Est Cr Clr Drug Dosing mL/min Estimated GFR (MDRD) (>60) BUN/Creatinine Ratio Glucose (74-106) mg/dL POC Glucose (74-106) mg/dL Lactic Acid (0.7-2.1) mmol/L Calcium (8.5-10.1) mg/dL Total Bilirubin (0.2-1.0) mg/dL AST (15-37) U/L ALT (12-78) U/L Alkaline Phosphatase (46-116) U/L C-Reactive Protein (0.0-0.3) mg/dL Total Protein (6.4-8.2) g/dL Albumin (3.4-5.0) g/dL Globulin (2.3-3.5) g/dL Albumin/Globulin Ratio (1.2-2.2) Amylase (25-115) U/L Lipase (73-393) U/L 02/28/21 02/28/21 02/28/21 Range/Units 10:40 11:11 11:55 WBC (4.5-11.0) K/uL RBC (3.30-5.50) M/uL Hgb (12.0-15.0) g/dL Hct (36.0-48.0) % MCV (80-98) fL MCH (27-31) pg MCHC (32-36) % Plt Count (150-400) K/uL Neut % (Auto) (36-66) % Lymph % (Auto) (24-44) % [place] % (Auto) (2-6) % Eos % (Auto) (2-4) % Baso % (Auto) (0-1) % VBG pH 7.089 L (7.350-7.450) Sodium (140-148) mmol/L Potassium (3.6-5.2) mmol/L Chloride (100-108) mmol/L Carbon Dioxide (21-32) mmol/L Anion Gap (5.0-14.0) mmol/L BUN (7-18) mg/dL Creatinine (0.6-1.0) mg/dL Est Cr Clr Drug Dosing mL/min Estimated GFR (MDRD) (>60) BUN/Creatinine Ratio Glucose (74-106) mg/dL POC Glucose (74-106) mg/dL Lactic Acid 1.6 (0.7-2.1) mmol/L Calcium (8.5-10.1) mg/dL Total Bilirubin (0.2-1.0) mg/dL AST (15-37) U/L ALT (12-78) U/L Alkaline Phosphatase (46-116) U/L C-Reactive Protein (0.0-0.3) mg/dL Total Protein (6.4-8.2) g/dL Albumin (3.4-5.0) g/dL Globulin (2.3-3.5) g/dL Albumin/Globulin Ratio (1.2-2.2) Amylase 631 H (25-115) U/L Lipase 8941 H (73-393) U/L 02/28/21 02/28/21 Range/Units 12:29 12:45 WBC (4.5-11.0) K/uL RBC (3.30-5.50) M/uL Hgb (12.0-15.0) g/dL Hct (36.0-48.0) % MCV (80-98) fL MCH (27-31) pg MCHC (32-36) % Plt Count (150-400) K/uL Neut % (Auto) (36-66) % Lymph % (Auto) (24-44) % Kent % (Auto) (2-6) % Eos % (Auto) (2-4) % Baso % (Auto) (0-1) % VBG pH (7.350-7.450) Sodium (140-148) mmol/L Potassium (3.6-5.2) mmol/L Chloride (100-108) mmol/L Carbon Dioxide (21-32) mmol/L Anion Gap (5.0-14.0) mmol/L BUN (7-18) mg/dL Creatinine (0.6-1.0) mg/dL Est Cr Clr Drug Dosing mL/min Estimated GFR (MDRD) (>60) BUN/Creatinine Ratio Glucose 440 H* (74-106) mg/dL POC Glucose 403 H* (74-106) mg/dL Lactic Acid (0.7-2.1) mmol/L Calcium (8.5-10.1) mg/dL Total Bilirubin (0.2-1.0) mg/dL AST (15-37) U/L ALT (12-78) U/L Alkaline Phosphatase (46-116) U/L C-Reactive Protein (0.0-0.3) mg/dL Total Protein (6.4-8.2) g/dL Albumin (3.4-5.0) g/dL Globulin (2.3-3.5) g/dL Albumin/Globulin Ratio (1.2-2.2) Amylase (25-115) U/L Lipase (73-393) U/L Result Diagrams: 02/28/21 10:20 02/28/21 17:20 Sepsis Event Note - Focused Exam Vital Signs: Vital Signs Temp Pulse Resp BP Pulse Ox 02/28/21 12:21 97.9 F 115 H 16 130/77 99 02/28/21 10:50 96.7 F L 116 H 20 148/74 H 100 *Q Meaningful Use (ADM) - VTE Risk Assess *Q Each Risk Factor Represents 1 Point: Obesity ( BMI > 25 kg/m2) Total Score 1 Point Risk Factors: 1 Each Risk Factor Represents 2 Points: Age 60 - 74 Years Total Score 2 Point Risk Factors: 2 Each Risk Factor Represents 3 Points: None Total Score 3 Point Risk Factors: 0 Each Risk Factor Represents 5 Points: None Total Score 5 Point Risk Factors: 0 Venous Thromboembolism Risk Factor Score *Q: 3 Problem List Initiated/Reviewed/Updated: Yes Orders Last 24hrs: Active Orders 24 hr Category Date Time Status Patient Status Manage Transfer [TRANSFER] Routine ADT 02/28/21 13:15 Ordered Blood Glucose Check, Bedside [RC] Q1H Care 02/28/21 13:11 Active Diabetes Education [RC] Click to Edit Care 02/28/21 13:11 Active Notify Provider Laboratory Res [RC] ASDIRECTED Care 02/28/21 13:12 Active Notify Provider Laboratory Res [RC] ASDIRECTED Care 02/28/21 13:13 Active Notify Provider Laboratory Res [RC] ASDIRECTED Care 02/28/21 13:13 Active Vital Signs [RC] Q1H Care 02/28/21 13:11 Active Consult to Diabetic Nurse Specialist [CONS] Urgent Cons 02/28/21 13:11 Active Abdomen Ltd [US] Stat Exams 02/28/21 11:55 Taken BASIC METABOLIC PANEL,BMP [CHEM] Q4H Lab 02/28/21 13:15 Ordered BASIC METABOLIC PANEL,BMP [CHEM] Q4H Lab 02/28/21 17:15 Ordered BASIC METABOLIC PANEL,BMP [CHEM] Q4H Lab 02/28/21 21:15 Ordered BASIC METABOLIC PANEL,BMP [CHEM] Q4H Lab 03/01/21 01:15 Ordered BASIC METABOLIC PANEL,BMP [CHEM] Q4H Lab 03/01/21 05:15 Ordered BASIC METABOLIC PANEL,BMP [CHEM] Q4 Lab 03/01/21 09:15 Ordered BASIC METABOLIC PANEL,BMP [CHEM] Stat Lab 02/28/21 13:04 Received MAGNESIUM [CHEM] Q6 Lab 02/28/21 13:15 Ordered MAGNESIUM [CHEM] Q6 Lab 02/28/21 19:15 Ordered MAGNESIUM [CHEM] Q6 Lab 03/01/21 01:15 Ordered MAGNESIUM [CHEM] Q6 Lab 03/01/21 07:15 Ordered MAGNESIUM [CHEM] Stat Lab 02/28/21 13:04 Received PHOSPHORUS [CHEM] Q6 Lab 02/28/21 13:15 Ordered PHOSPHORUS [CHEM] Q6 Lab 02/28/21 19:15 Ordered PHOSPHORUS [CHEM] Q6 Lab 03/01/21 01:15 Ordered PHOSPHORUS [CHEM] Q6 Lab 03/01/21 07:15 Ordered PHOSPHORUS [CHEM] Stat Lab 02/28/21 13:04 Received POTASSIUM,K [CHEM] Q2 Lab 02/28/21 15:15 Ordered POTASSIUM,K [CHEM] Q2 Lab 02/28/21 19:15 Ordered POTASSIUM,K [CHEM] Q2 Lab 02/28/21 23:15 Ordered POTASSIUM,K [CHEM] Q2 Lab 03/01/21 01:15 Ordered POTASSIUM,K [CHEM] Q2 Lab 03/01/21 03:15 Ordered POTASSIUM,K [CHEM] [facility] 03/01/21 05:15 Ordered POTASSIUM,K [CHEM] Q2 Lab 03/01/21 07:15 Ordered POTASSIUM,K [CHEM] Q2 Lab 03/01/21 09:15 Ordered POTASSIUM,K [CHEM] Q2 Lab 03/01/21 11:15 Ordered UA W/MICROSCOPIC [URIN] Urgent Lab 02/28/21 10:02 Ordered Dextrose 5%-0.45% NaCl [Dextrose 5%-1/2 NS] 1,000 ml Med 02/28/21 13:11 Active IV .CONTINUOUS Dextrose 50% in Water Med 02/28/21 11:13 Active 50 ml IVPUSH ASDIRECTED PRN Glucagon,Human Recombinant [GlucaGen] Med 02/28/21 11:13 Active 1 mg IM ASDIRECTED PRN Insulin Regular in 0.9 % NACL [Myxredlin in NS 100 UNIT Med 02/28/21 12:45 Active /100 ML] 100 unit in 100 ml IV ASDIRECTED Magnesium Sulfate/Water [Magnesium Sulfate in Water 2 Med 02/28/21 13:11 Active GM/50 ML] 50 ml IV ONETIME Potassium Chloride [KCL in Water 20 MEQ/100 ML] 20 meq Med 02/28/21 13:11 Ordered Premix Bag 1 bag IV ONETIME Potassium Chloride [KCL in Water 20 MEQ/100 ML] 20 meq Med 02/28/21 13:11 Ordered Premix Bag 1 bag IV Q2H Potassium Chloride [KCL in Water 20 MEQ/100 ML] 20 meq Med 02/28/21 13:11 Ordered Premix Bag 1 bag IV Q2H Potassium Chloride [Potassium Chloride Solution] Med 02/28/21 13:11 Ordered 20 meq PO NOW PRN Potassium Chloride [Potassium Chloride Solution] Med 02/28/21 13:11 Ordered 40 meq PO NOW PRN Potassium Chloride [Potassium Chloride Solution] Med 02/28/21 13:11 Ordered 40 meq PO Q2H PRN Sodium Chloride 0.9% [Normal Saline] 1,000 ml Med 02/28/21 10:15 Active IV ASDIRECTED Sodium Chloride 0.9% [Normal Saline] 1,000 ml Med 02/28/21 10:45 Active IV ASDIRECTED Sodium Chloride 0.9% [Normal Saline] 1,000 ml Med 02/28/21 12:45 Active IV ASDIRECTED Sodium Chloride 0.9% [Normal Saline] 2,000 ml Med 02/28/21 13:11 Ordered IV .CONTINUOUS Sodium Phosphate 60 mmole Med 02/28/21 13:11 Ordered Sodium Chloride 0.9% [Normal Saline] 250 ml IV ONETIME Medication Continuation Instructions [OM.PC] ASDIRECTED Oth 02/28/21 13:15 Ordered Medication Discontinuation Instructions [OM.PC] Oth 02/28/21 13:15 Ordered ASDIRECTED Resuscitation Status Routine Resus Stat 02/28/21 13:18 Ordered Medication Orders Dextrose/Water (50% Dextrose In Water 50 Ml Syringe) 50 ml IVPUSH ASDIRECTED PRN PRN Reason: Hypoglycemia Glucagon (Glucagon,Human Recombinant 1 Mg Vial) 1 mg IM ASDIRECTED PRN PRN Reason: Hypoglycemia Sodium Chloride (Normal Saline) 1,000 mls @ 999 mls/hr IV ASDIRECTED [facility] Last Admin: 02/28/21 10:29 Dose: 999 mls/hr Documented by: URSZULA Sodium Chloride (Normal Saline) 1,000 mls @ 999 mls/hr IV ASDIRECTED [facility] Last Admin: 02/28/21 11:41 Dose: 999 mls/hr Documented by: URSZULA Sodium Chloride (Normal Saline) 1,000 mls @ 500 mls/hr IV ASDIRECTED [facility] Insulin Regular in 0.9 % NACL (Myxredlin In Ns 100 Unit/100 Ml) 100 unit in 100 mls @ 8.301 mls/hr IV ASDIRECTED [facility]ARA; Protocol Sodium Chloride (Normal Saline) 2,000 mls @ 500 mls/hr IV .CONTINUOUS PRN PRN Reason: Blood Glucose Dextrose/Sodium Chloride (Dextrose 5%-1/2 Ns) 1,000 mls @ 150 mls/hr IV .CONTINUOUS PRN PRN Reason: Blood Glucose Potassium Chloride 20 meq/ (Premix) 100 mls @ 50 mls/hr IV ONETIME ONE Stop: 02/28/21 15:10 Potassium Chloride 20 meq/ (Premix) 100 mls @ 50 mls/hr IV Q2H PRN PRN Reason: Hypokalemia Potassium Chloride 20 meq/ (Premix) 100 mls @ 50 mls/hr IV Q2H PRN PRN Reason: Hypokalemia Magnesium Sulfate (Magnesium Sulfate In Water 2 Gm/50 Ml) 50 mls @ 25 mls/hr IV ONETIME PRN PRN Reason: low magnesium Sodium Phosphate 60 mmole/ (Sodium Chloride) 270 mls @ 62.5 mls/hr IV ONETIME PRN PRN Reason: Low phophorus Potassium Chloride (Potassium Chloride 10% 20 Meq/15 Ml Soln 15 Ml Ud Cup) 20 meq PO NOW PRN PRN Reason: Hypokalemia Potassium Chloride (Potassium Chloride 10% 20 Meq/15 Ml Soln 15 Ml Ud Cup) 40 meq PO NOW PRN PRN Reason: Hypokalemia Potassium Chloride (Potassium Chloride 10% 20 Meq/15 Ml Soln 15 Ml Ud Cup) 40 meq PO Q2H PRN PRN Reason: Hypokalemia Assessment/Plan Comment:: ASSESSMENT AND PLAN DIABETIC KETOACIDOSIS-no prior history of ketoacidosis, she has had type 2 diabetes mellitus for some time. Likely secondary to current acute pancreatitis. -IV fluids per ketoacidosis protocol -Continuous infusion of IV insulin per protocol -Monitoring and management of electrolytes per protocol ACUTE PANCREATITIS-she does admit to regular daily alcohol use which is likely the underlying cause. -N.p.o. -IV fluids as above -Pain medication as needed MAINTENANCE ISSUES -DVT prophylaxis; Lovenox 40 mg subcu daily -GI prophylaxis; not indicated -Paul catheter; not indicated -Nutrition; n.p.o. -Nicotine dependence; not required CODE STATUS-FULL CODE ADMISSION STATUS-patient will be admitted to inpatient status, expect at least a 2 night hospital stay for evaluation and management of problems as outlined above. At the time of this admission I do not reasonably expected evaluation and management of this problem will require more than a 96 hour hospital stay. DISPOSITION-anticipate discharge to home after the hospital stay. PRIMARY CARE PROVIDER-Dr. Portillo - Mortality Measure Prognosis:: Good
--- NOTE | 2021-02-28 13:46 | US ---
Abdomen Ltd CLINICAL HISTORY: Acute pancreatitis COMPARISON: Current CT. TECHNIQUE: Real-time images were obtained through the right upper quadrant. FINDINGS: The liver is free of mass or biliary dilatation. There is some increased parenchymal echogenicity. The gallbladder is free of filling defects or wall thickening.. The common bile duct measures 6 mm. The pancreas is obscured. The right kidney has a normal appearance. The IVC is normal. IMPRESSION: Increased hepatic echotexture suggests some fatty infiltration which is also seen on CT No mass or biliary dilatation Pancreas is obscured
[2021-02-28] MEDS: Potassium Chloride 10% 20 MEQ/15 ML Soln 15 ML UD Cup PO PRN (14:41)
[2021-02-28] MEDS: Dextrose 5%-0.45% NaCl 1,000 ML IV PRN ×2 (16:27→23:13)
[2021-02-28] MEDS ORDERED: Sodium Chloride 0.9% 10 ML Syringe FLUSH PRN (16:40)
[2021-02-28] MEDS ORDERED: Polyethylene Glycol 3350 Powder 17 GM Packet PO PRN (16:40)
[2021-02-28] MEDS ORDERED: Ondansetron 4 MG/2 ML SDV IV PRN (16:40)
[2021-02-28] MEDS ORDERED: Acetaminophen 325 MG Tab PO PRN (16:40)
[2021-02-28] MEDS: HYDROmorphone 0.5 MG/0.5 ML Syringe IVPUSH PRN (17:51)
[2021-02-28] MEDS: Enoxaparin 40 MG/0.4 ML Syringe SUBCUT SCH (17:55)
[2021-02-28] MEDS: Potassium Chloride 20 MEQ in Premix Bag 1 BAG IV PRN (20:27)
[2021-03-01] MEDS: LORazepam 1 MG Tab PO SCH ×5 (00:02→22:59)
[2021-03-01] MEDS: Potassium Chloride 20 MEQ in Premix Bag 1 BAG IV PRN ×2 (00:21→03:52)
[2021-03-01] MEDS: Dextrose 5%-0.45% NaCl 1,000 ML IV PRN ×3 (05:40→17:59)
[2021-03-01] MEDS: Pantoprazole 40 MG Tab.CR PO SCH (07:56)
[2021-03-01] MEDS: Insulin Regular in 0.9 % NACL 100 ML IV SCH (07:56)
[2021-03-01] MEDS ORDERED: atorvaSTATin 10 MG Tab PO SCH (09:00)
[2021-03-01] MEDS ORDERED: Potassium Chloride 20 MEQ, Lidocaine 1% 2 ML in Sodium Chloride 0.9% 100 ML IV ONE ×3 (09:00→16:00)
[2021-03-01] MEDS ORDERED: OMEPRAZOLE PO SCH (09:00)
[2021-03-01] MEDS: Insulin NPH/Insulin Regular,Human 70-30 100 Units/ML 10 ML Vial SUBCUT SCH ×2 (09:59→20:52)
[2021-03-01] MEDS: Hydrochlorothiazide 25 MG Tab PO SCH (10:01)
[2021-03-01] MEDS: Lisinopril 20 MG Tab PO SCH (10:02)
[2021-03-01] MEDS: Clopidogrel 75 MG Tab PO SCH (10:02)
[2021-03-01] MEDS: atorvaSTATin 20 MG Tab PO SCH (10:03)
[2021-03-01] MEDS: Potassium Chloride 10% 20 MEQ/15 ML Soln 15 ML UD Cup PO PRN ×2 (11:50→17:24)
--- NOTE | 2021-03-01 12:49 | PCM.PN ---
- General Info Date of Service: 03/01/21 Subjective Update: Ms. Aguirre has improved from admission, glucose levels under better control and ketoacidosis has improved significantly but not resolved. She remains on continuous infusion of insulin with regular laboratory testing. Abdominal pain has improved but also not resolved, there has been improvement in amylase and lipase levels. She has shown some evidence of alcohol withdrawal and is currently managed with alcohol withdrawal protocol. - Review of Systems General: Reports: Weakness, Fatigue. Denies: Fever, Chills Pulmonary: Reports: No Symptoms Cardiovascular: Reports: No Symptoms Gastrointestinal: Reports: Abdominal Pain. Denies: Difficulty Swallowing, Hematochezia, Melena, Nausea, Vomiting Genitourinary: Reports: No Symptoms - Patient Data Vitals - Most Recent: Last Vital Signs Temp 97.8 F 03/01/21 12:00 Pulse 110 H 03/01/21 06:00 Resp 20 03/01/21 12:00 BP 105/51 L 03/01/21 12:00 Pulse Ox 97 03/01/21 12:00 Weight - Most Recent: 186 lb 8.177 oz I&O - Last 24 Hours: Intake & Output 02/28/21 03/01/21 03/01/21 22:59 06:59 14:59 Intake Total 2420 2038 Output Total 0 1500 Balance 2420 2038 -1500 Lab Results Last 24 Hours: Laboratory Results - last 24 hr 02/28/21 02/28/21 02/28/21 Range/Units 12:29 12:45 13:04 WBC (4.5-11.0) K/uL RBC (3.30-5.50) M/uL Hgb (12.0-15.0) g/dL Hct (36.0-48.0) % MCV (80-98) fL MCH (27-31) pg MCHC (32-36) % Plt Count (150-400) K/uL Neut % (Auto) (36-66) % Lymph % (Auto) (24-44) % [place] % (Auto) (2-6) % Eos % (Auto) (2-4) % Baso % (Auto) (0-1) % Sodium (140-148) mmol/L Potassium (3.6-5.2) mmol/L Chloride (100-108) mmol/L Carbon Dioxide (21-32) mmol/L Anion Gap (5.0-14.0) mmol/L BUN (7-18) mg/dL Creatinine (0.6-1.0) mg/dL Est Cr Clr Drug Dosing mL/min Estimated GFR (MDRD) (>60) Glucose 440 H* (74-106) mg/dL POC Glucose 403 H* (74-106) mg/dL Calcium (8.5-10.1) mg/dL Phosphorus (2.5-4.9) mg/dL Magnesium 1.7 L (1.8-2.4) mg/dL Amylase (25-115) U/L Lipase (73-393) U/L 02/28/21 02/28/21 02/28/21 Range/Units 13:04 15:19 15:20 WBC (4.5-11.0) K/uL RBC (3.30-5.50) M/uL Hgb (12.0-15.0) g/dL Hct (36.0-48.0) % MCV (80-98) fL MCH (27-31) pg MCHC (32-36) % Plt Count (150-400) K/uL Neut % (Auto) (36-66) % Lymph % (Auto) (24-44) % [place] % (Auto) (2-6) % Eos % (Auto) (2-4) % Baso % (Auto) (0-1) % Sodium 131 L (140-148) mmol/L Potassium 3.6 3.6 (3.6-5.2) mmol/L Chloride 99 L (100-108) mmol/L Carbon Dioxide 10 L D (21-32) mmol/L Anion Gap 25.6 H (5.0-14.0) mmol/L BUN 17 D (7-18) mg/dL Creatinine 1.9 H D (0.6-1.0) mg/dL Est Cr Clr Drug Dosing 27.56 mL/min Estimated GFR (MDRD) 26 L (>60) Glucose 410 H* (74-106) mg/dL POC Glucose 284 H (74-106) mg/dL Calcium 8.3 L (8.5-10.1) mg/dL Phosphorus 3.0 (2.5-4.9) mg/dL Magnesium (1.8-2.4) mg/dL Amylase (25-115) U/L Lipase (73-393) U/L 02/28/21 02/28/21 02/28/21 Range/Units 16:16 17:20 18:09 WBC (4.5-11.0) K/uL RBC (3.30-5.50) M/uL Hgb (12.0-15.0) g/dL Hct (36.0-48.0) % MCV (80-98) fL MCH (27-31) pg MCHC (32-36) % Plt Count (150-400) K/uL Neut % (Auto) (36-66) % Lymph % (Auto) (24-44) % [place] % (Auto) (2-6) % Eos % (Auto) (2-4) % Baso % (Auto) (0-1) % Sodium 132 L (140-148) mmol/L Potassium 4.4 (3.6-5.2) mmol/L Chloride 103 (100-108) mmol/L Carbon Dioxide 12 L (21-32) mmol/L Anion Gap 21.4 H (5.0-14.0) mmol/L BUN 19 H (7-18) mg/dL Creatinine 1.8 H (0.6-1.0) mg/dL Est Cr Clr Drug Dosing 29.09 mL/min Estimated GFR (MDRD) 28 L (>60) Glucose 204 H (74-106) mg/dL POC Glucose 234 H 158 H (74-106) mg/dL Calcium 8.3 L (8.5-10.1) mg/dL Phosphorus (2.5-4.9) mg/dL Magnesium (1.8-2.4) mg/dL Amylase (25-115) U/L Lipase (73-393) U/L 02/28/21 02/28/21 02/28/21 Range/Units 19:10 19:20 20:04 WBC (4.5-11.0) K/uL RBC (3.30-5.50) M/uL Hgb (12.0-15.0) g/dL Hct (36.0-48.0) % MCV (80-98) fL MCH (27-31) pg MCHC (32-36) % Plt Count (150-400) K/uL Neut % (Auto) (36-66) % Lymph % (Auto) (24-44) % [place] % (Auto) (2-6) % Eos % (Auto) (2-4) % Baso % (Auto) (0-1) % Sodium (140-148) mmol/L Potassium 3.5 L (3.6-5.2) mmol/L Chloride (100-108) mmol/L Carbon Dioxide (21-32) mmol/L Anion Gap (5.0-14.0) mmol/L BUN (7-18) mg/dL Creatinine (0.6-1.0) mg/dL Est Cr Clr Drug Dosing mL/min Estimated GFR (MDRD) (>60) Glucose (74-106) mg/dL POC Glucose 185 H 206 H (74-106) mg/dL Calcium (8.5-10.1) mg/dL Phosphorus 2.0 L (2.5-4.9) mg/dL Magnesium 1.6 L (1.8-2.4) mg/dL Amylase (25-115) U/L Lipase (73-393) U/L 02/28/21 02/28/21 02/28/21 Range/Units 21:05 21:24 21:58 WBC (4.5-11.0) K/uL RBC (3.30-5.50) M/uL Hgb (12.0-15.0) g/dL Hct (36.0-48.0) % MCV (80-98) fL MCH (27-31) pg MCHC (32-36) % Plt Count (150-400) K/uL Neut % (Auto) (36-66) % Lymph % (Auto) (24-44) % [place] % (Auto) (2-6) % Eos % (Auto) (2-4) % Baso % (Auto) (0-1) % Sodium 132 L (140-148) mmol/L Potassium 3.5 L (3.6-5.2) mmol/L Chloride 101 (100-108) mmol/L Carbon Dioxide 16 L (21-32) mmol/L Anion Gap 18.5 H (5.0-14.0) mmol/L BUN 18 (7-18) mg/dL Creatinine 2.0 H (0.6-1.0) mg/dL Est Cr Clr Drug Dosing 26.18 mL/min Estimated GFR (MDRD) 25 L (>60) Glucose 244 H (74-106) mg/dL POC Glucose 209 H 236 H (74-106) mg/dL Calcium 8.5 (8.5-10.1) mg/dL Phosphorus (2.5-4.9) mg/dL Magnesium (1.8-2.4) mg/dL Amylase (25-115) U/L Lipase (73-393) U/L 02/28/21 02/28/21 02/28/21 Range/Units 23:12 23:24 23:58 WBC (4.5-11.0) K/uL RBC (3.30-5.50) M/uL Hgb (12.0-15.0) g/dL Hct (36.0-48.0) % MCV (80-98) fL MCH (27-31) pg MCHC (32-36) % Plt Count (150-400) K/uL Neut % (Auto) (36-66) % Lymph % (Auto) (24-44) % [place] % (Auto) (2-6) % Eos % (Auto) (2-4) % Baso % (Auto) (0-1) % Sodium (140-148) mmol/L Potassium 3.6 (3.6-5.2) mmol/L Chloride (100-108) mmol/L Carbon Dioxide (21-32) mmol/L Anion Gap (5.0-14.0) mmol/L BUN (7-18) mg/dL Creatinine (0.6-1.0) mg/dL Est Cr Clr Drug Dosing mL/min Estimated GFR (MDRD) (>60) Glucose (74-106) mg/dL POC Glucose 227 H 234 H (74-106) mg/dL Calcium (8.5-10.1) mg/dL Phosphorus (2.5-4.9) mg/dL Magnesium (1.8-2.4) mg/dL Amylase (25-115) U/L Lipase (73-393) U/L 03/01/21 03/01/21 03/01/21 Range/Units 00:58 01:27 02:02 WBC (4.5-11.0) K/uL RBC (3.30-5.50) M/uL Hgb (12.0-15.0) g/dL Hct (36.0-48.0) % MCV (80-98) fL MCH (27-31) pg MCHC (32-36) % Plt Count (150-400) K/uL Neut % (Auto) (36-66) % Lymph % (Auto) (24-44) % [place] % (Auto) (2-6) % Eos % (Auto) (2-4) % Baso % (Auto) (0-1) % Sodium 132 L (140-148) mmol/L Potassium 3.6 (3.6-5.2) mmol/L Chloride 102 (100-108) mmol/L Carbon Dioxide 17 L (21-32) mmol/L Anion Gap 16.6 H (5.0-14.0) mmol/L BUN 17 (7-18) mg/dL Creatinine 1.9 H (0.6-1.0) mg/dL Est Cr Clr Drug Dosing 27.56 mL/min Estimated GFR (MDRD) 26 L (>60) Glucose 248 H (74-106) mg/dL POC Glucose 226 H 247 H (74-106) mg/dL Calcium 8.3 L (8.5-10.1) mg/dL Phosphorus 1.3 L (2.5-4.9) mg/dL Magnesium 2.1 (1.8-2.4) mg/dL Amylase (25-115) U/L Lipase (73-393) U/L 03/01/21 03/01/21 03/01/21 Range/Units 02:56 03:21 03:51 WBC (4.5-11.0) K/uL RBC (3.30-5.50) M/uL Hgb (12.0-15.0) g/dL Hct (36.0-48.0) % MCV (80-98) fL MCH (27-31) pg MCHC (32-36) % Plt Count (150-400) K/uL Neut % (Auto) (36-66) % Lymph % (Auto) (24-44) % [place] % (Auto) (2-6) % Eos % (Auto) (2-4) % Baso % (Auto) (0-1) % Sodium (140-148) mmol/L Potassium 3.5 L (3.6-5.2) mmol/L Chloride (100-108) mmol/L Carbon Dioxide (21-32) mmol/L Anion Gap (5.0-14.0) mmol/L BUN (7-18) mg/dL Creatinine (0.6-1.0) mg/dL Est Cr Clr Drug Dosing mL/min Estimated GFR (MDRD) (>60) Glucose (74-106) mg/dL POC Glucose 242 H 220 H (74-106) mg/dL Calcium (8.5-10.1) mg/dL Phosphorus (2.5-4.9) mg/dL Magnesium (1.8-2.4) mg/dL Amylase (25-115) U/L Lipase (73-393) U/L 03/01/21 03/01/21 03/01/21 Range/Units 05:07 05:30 05:30 WBC 7.5 (4.5-11.0) K/uL RBC 3.35 (3.30-5.50) M/uL Hgb 10.8 L D (12.0-15.0) g/dL Hct 32.6 L (36.0-48.0) % MCV 97 (80-98) fL MCH 32 H (27-31) pg MCHC 33 (32-36) % Plt Count 159 (150-400) K/uL Neut % (Auto) 72.1 H (36-66) % Lymph % (Auto) 13.2 L (24-44) % [place] % (Auto) 14.3 H (2-6) % Eos % (Auto) 0.1 L (2-4) % Baso % (Auto) 0.3 (0-1) % Sodium 131 L (140-148) mmol/L Potassium 3.5 L (3.6-5.2) mmol/L Chloride 103 (100-108) mmol/L Carbon Dioxide 16 L (21-32) mmol/L Anion Gap 15.5 H (5.0-14.0) mmol/L BUN 16 (7-18) mg/dL Creatinine 1.9 H (0.6-1.0) mg/dL Est Cr Clr Drug Dosing 27.56 mL/min Estimated GFR (MDRD) 26 L (>60) Glucose 255 H (74-106) mg/dL POC Glucose 244 H (74-106) mg/dL Calcium 8.4 L (8.5-10.1) mg/dL Phosphorus (2.5-4.9) mg/dL Magnesium (1.8-2.4) mg/dL Amylase (25-115) U/L Lipase (73-393) U/L 03/01/21 03/01/21 03/01/21 Range/Units 05:30 05:56 06:59 WBC (4.5-11.0) K/uL RBC (3.30-5.50) M/uL Hgb (12.0-15.0) g/dL Hct (36.0-48.0) % MCV (80-98) fL MCH (27-31) pg MCHC (32-36) % Plt Count (150-400) K/uL Neut % (Auto) (36-66) % Lymph % (Auto) (24-44) % [place] % (Auto) (2-6) % Eos % (Auto) (2-4) % Baso % (Auto) (0-1) % Sodium (140-148) mmol/L Potassium (3.6-5.2) mmol/L Chloride (100-108) mmol/L Carbon Dioxide (21-32) mmol/L Anion Gap (5.0-14.0) mmol/L BUN (7-18) mg/dL Creatinine (0.6-1.0) mg/dL Est Cr Clr Drug Dosing mL/min Estimated GFR (MDRD) (>60) Glucose (74-106) mg/dL POC Glucose 231 H 228 H (74-106) mg/dL Calcium (8.5-10.1) mg/dL Phosphorus (2.5-4.9) mg/dL Magnesium (1.8-2.4) mg/dL Amylase 290 H D (25-115) U/L Lipase 2480 H (73-393) U/L 03/01/21 03/01/21 03/01/21 Range/Units 07:15 07:58 09:15 WBC (4.5-11.0) K/uL RBC (3.30-5.50) M/uL Hgb (12.0-15.0) g/dL Hct (36.0-48.0) % MCV (80-98) fL MCH (27-31) pg MCHC (32-36) % Plt Count (150-400) K/uL Neut % (Auto) (36-66) % Lymph % (Auto) (24-44) % [place] % (Auto) (2-6) % Eos % (Auto) (2-4) % Baso % (Auto) (0-1) % Sodium 131 L (140-148) mmol/L Potassium 3.6 3.4 L (3.6-5.2) mmol/L Chloride 103 (100-108) mmol/L Carbon Dioxide 18 L (21-32) mmol/L Anion Gap 13.4 (5.0-14.0) mmol/L BUN 17 (7-18) mg/dL Creatinine 1.9 H (0.6-1.0) mg/dL Est Cr Clr Drug Dosing 27.56 mL/min Estimated GFR (MDRD) 26 L (>60) Glucose 261 H (74-106) mg/dL POC Glucose 259 H (74-106) mg/dL Calcium 8.5 (8.5-10.1) mg/dL Phosphorus 1.5 L (2.5-4.9) mg/dL Magnesium 2.1 (1.8-2.4) mg/dL Amylase (25-115) U/L Lipase (73-393) U/L 03/01/21 03/01/21 03/01/21 Range/Units 09:15 09:51 10:56 WBC (4.5-11.0) K/uL RBC (3.30-5.50) M/uL Hgb (12.0-15.0) g/dL Hct (36.0-48.0) % MCV (80-98) fL MCH (27-31) pg MCHC (32-36) % Plt Count (150-400) K/uL Neut % (Auto) (36-66) % Lymph % (Auto) (24-44) % [place] % (Auto) (2-6) % Eos % (Auto) (2-4) % Baso % (Auto) (0-1) % Sodium (140-148) mmol/L Potassium (3.6-5.2) mmol/L Chloride (100-108) mmol/L Carbon Dioxide (21-32) mmol/L Anion Gap (5.0-14.0) mmol/L BUN (7-18) mg/dL Creatinine (0.6-1.0) mg/dL Est Cr Clr Drug Dosing mL/min Estimated GFR (MDRD) (>60) Glucose (74-106) mg/dL POC Glucose 244 H 240 H 192 H (74-106) mg/dL Calcium (8.5-10.1) mg/dL Phosphorus (2.5-4.9) mg/dL Magnesium (1.8-2.4) mg/dL Amylase (25-115) U/L Lipase (73-393) U/L 03/01/21 03/01/21 Range/Units 11:15 11:59 WBC (4.5-11.0) K/uL RBC (3.30-5.50) M/uL Hgb (12.0-15.0) g/dL Hct (36.0-48.0) % MCV (80-98) fL MCH (27-31) pg MCHC (32-36) % Plt Count (150-400) K/uL Neut % (Auto) (36-66) % Lymph % (Auto) (24-44) % [place] % (Auto) (2-6) % Eos % (Auto) (2-4) % Baso % (Auto) (0-1) % Sodium (140-148) mmol/L Potassium 3.4 L (3.6-5.2) mmol/L Chloride (100-108) mmol/L Carbon Dioxide (21-32) mmol/L Anion Gap (5.0-14.0) mmol/L BUN (7-18) mg/dL Creatinine (0.6-1.0) mg/dL Est Cr Clr Drug Dosing mL/min Estimated GFR (MDRD) (>60) Glucose (74-106) mg/dL POC Glucose 234 H (74-106) mg/dL Calcium (8.5-10.1) mg/dL Phosphorus (2.5-4.9) mg/dL Magnesium (1.8-2.4) mg/dL Amylase (25-115) U/L Lipase (73-393) U/L Med Orders - Current: Current Medications Acetaminophen (Acetaminophen 325 Mg Tab) 650 mg PO Q4H PRN PRN Reason: Pain (Mild 1-3)/fever Atorvastatin Calcium (Atorvastatin 20 Mg Tab) 80 mg PO DAILY [facility] Last Admin: 03/01/21 10:03 Dose: 80 mg Documented by: Clopidogrel Bisulfate (Clopidogrel 75 Mg Tab) 75 mg PO DAILY [facility] Last Admin: 03/01/21 10:02 Dose: 75 mg Documented by: Enoxaparin Sodium (Enoxaparin 40 Mg/0.4 Ml Syringe) 40 mg SUBCUT Q24H [facility] Last Admin: 02/28/21 17:55 Dose: 40 mg Documented by: Hydrochlorothiazide (Hydrochlorothiazide 25 Mg Tab) 25 mg PO DAILY [facility] Last Admin: 03/01/21 10:01 Dose: 25 mg Documented by: Hydromorphone HCl (Hydromorphone 0.5 Mg/0.5 Ml Syringe) 0.5 mg IVPUSH Q2H PRN PRN Reason: Pain Last Admin: 02/28/21 17:51 Dose: 0.5 mg Documented by: Sodium Chloride (Normal Saline) 2,000 mls @ 500 mls/hr IV .CONTINUOUS PRN PRN Reason: Blood Glucose Last Admin: 02/28/21 14:24 Dose: 500 mls/hr Documented by: Dextrose/Sodium Chloride (Dextrose 5%-1/2 Ns) 1,000 mls @ 150 mls/hr IV . CONTINUOUS PRN PRN Reason: Blood Glucose Last Admin: 03/01/21 11:53 Dose: 150 mls/hr Documented by: Potassium Chloride 20 meq/ (Premix) 100 mls @ 50 mls/hr IV ASDIRECTED PRN PRN Reason: LOW POTASSIUM Last Admin: 03/01/21 03:52 Dose: 50 mls/hr Documented by: Potassium Chloride 20 meq/ (Premix) 100 mls @ 50 mls/hr IV Q2H PRN PRN Reason: Hypokalemia Potassium Chloride 20 meq/ (Premix) 100 mls @ 50 mls/hr IV Q2H PRN PRN Reason: Hypokalemia Magnesium Sulfate (Magnesium Sulfate In Water 2 Gm/50 Ml) 50 mls @ 25 mls/hr IV ONETIME PRN PRN Reason: low magnesium Last Admin: 02/28/21 20:04 Dose: 25 mls/hr Documented by: Sodium Phosphate 60 mmole/ (Sodium Chloride) 270 mls @ 62.5 mls/hr IV ONETIME PRN PRN Reason: Low phophorus Insulin Regular in 0.9 % NACL (Myxredlin In Ns 100 Unit/100 Ml) 100 mls @ 8.301 mls/hr IV ASDIRECTED SARA; Protocol Last Infusion: 03/01/21 11:59 Dose: 0.05 units/kg/hr, 4 mls/hr Documented by: Potassium Chloride 20 meq/Lidocaine HCl 2 ml/ Sodium Chloride 112 mls @ 56 mls/hr IV ONETIME ONE Stop: 03/01/21 13:59 Last Admin: 03/01/21 12:01 Dose: 56 mls/hr Documented by: Insulin Human Isoph/Insulin Regular (Insulin Nph/Insulin Regular,Human 70-30 100 Units/Ml 10 Ml Vial) 15 units SUBCUT BID SARA Last Admin: 03/01/21 09:59 Dose: 15 units Documented by: Lisinopril (Lisinopril 20 Mg Tab) 20 mg PO DAILY [facility] Last Admin: 03/01/21 10:02 Dose: 20 mg Documented by: Lorazepam (Lorazepam 2 Mg/Ml Sdv) 0 mg IV ASDIRECTED SARA; Protocol Lorazepam (Lorazepam 1 Mg Tab) 0 mg PO ASDIRECTED SARA; Protocol Last Admin: 03/01/21 11:49 Dose: 1 mg Documented by: Ondansetron HCl (Ondansetron 4 Mg/2 Ml Sdv) 4 mg IV Q4H PRN PRN Reason: Nausea/Vomiting Pantoprazole Sodium (Pantoprazole 40 Mg Tab.Cr) 40 mg PO ACBREAKFAST [facility] Last Admin: 03/01/21 07:56 Dose: 40 mg Documented by: Polyethylene Glycol (Polyethylene Glycol 3350 Powder 17 Gm Packet) 17 gm PO DAILY PRN PRN Reason: Constipation Potassium Chloride (Potassium Chloride 10% 20 Meq/15 Ml Soln 15 Ml Ud Cup) 20 meq PO NOW PRN PRN Reason: Hypokalemia Last Admin: 02/28/21 14:41 Dose: 20 meq Documented by: Potassium Chloride (Potassium Chloride 10% 20 Meq/15 Ml Soln 15 Ml Ud Cup) 40 meq PO NOW PRN PRN Reason: Hypokalemia Last Admin: 03/01/21 11:50 Dose: 20 meq Documented by: Potassium Chloride (Potassium Chloride 10% 20 Meq/15 Ml Soln 15 Ml Ud Cup) 40 meq PO Q2H PRN PRN Reason: Hypokalemia Sodium Chloride (Sodium Chloride 0.9% 10 Ml Syringe) 10 ml FLUSH ASDIRECTED PRN PRN Reason: Keep Vein Open Discontinued Medications Dextrose/Water (50% Dextrose In Water 50 Ml Syringe) 50 ml IVPUSH ASDIRECTED PRN PRN Reason: Hypoglycemia Glucagon (Glucagon,Human Recombinant 1 Mg Vial) 1 mg IM ASDIRECTED PRN PRN Reason: Hypoglycemia Hydromorphone HCl (Hydromorphone 0.5 Mg/0.5 Ml Syringe) 0.5 mg IVPUSH ONETIME ONE Stop: 02/28/21 10:24 Last Admin: 02/28/21 10:40 Dose: 0.5 mg Documented by: Hydromorphone HCl (Hydromorphone 0.5 Mg/0.5 Ml Syringe) 0.5 mg IVPUSH ONETIME ONE Stop: 02/28/21 12:11 Last Admin: 02/28/21 14:12 Dose: 0.5 mg Documented by: Sodium Chloride (Normal Saline) 1,000 mls @ 999 mls/hr IV ASDIRECTED SARA Last Admin: 02/28/21 10:29 Dose: 999 mls/hr Documented by: Sodium Chloride (Normal Saline) 1,000 mls @ 999 mls/hr IV ASDIRECTED SARA Last Admin: 02/28/21 11:41 Dose: 999 mls/hr Documented by: Sodium Chloride (Normal Saline) 1,000 mls @ 500 mls/hr IV ASDIRECTED [facility] Insulin Regular in 0.9 % NACL (Myxredlin In Ns 100 Unit/100 Ml) 100 unit in 100 mls @ 8.301 mls/hr IV ASDIRECTED SARA; Protocol Last Infusion: 03/01/21 05:58 Dose: 0.05 units/kg/hr, 4 mls/hr Documented by: Potassium Chloride 20 meq/Lidocaine HCl 2 ml/ Sodium Chloride 112 mls @ 56 mls/hr IV ONETIME ONE Stop: 03/01/21 10:59 Last Admin: 03/01/21 08:50 Dose: 56 mls/hr Documented by: Insulin Human Regular (Insulin Regular, Human 100 Units/Ml 3 Ml Vial) 3 unit IVPUSH ONETIME ONE Stop: 02/28/21 11:13 Last Admin: 02/28/21 11:53 Dose: 3 units Documented by: Insulin Human Regular (Insulin Regular, Human 100 Units/Ml 3 Ml Vial) 3 unit SUBCUT ONETIME ONE Stop: 02/28/21 11:14 Last Admin: 02/28/21 11:54 Dose: 3 unit Documented by: Lidocaine HCl (Lidocaine 1% 5 Ml Sdv) 2 ml INJECT ONETIME ONE Stop: 02/28/21 20:10 Last Admin: 02/28/21 20:28 Dose: 2 ml Documented by: Lidocaine HCl (Lidocaine 1% 5 Ml Sdv) Confirm Administered Dose 5 ml .ROUTE .STK-MED ONE Stop: 02/28/21 20:16 Last Admin: 02/28/21 20:28 Dose: Not Given Documented by: Lidocaine HCl (Lidocaine 1% 5 Ml Sdv) 2 ml INJECT ONETIME ONE Stop: 03/01/21 03:49 Last Admin: 03/01/21 03:53 Dose: 2 ml Documented by: Lidocaine HCl (Lidocaine 1% 5 Ml Sdv) Confirm Administered Dose 5 ml .ROUTE .STK-MED ONE Stop: 03/01/21 03:50 Last Admin: 03/01/21 03:53 Dose: Not Given Documented by: Ondansetron HCl (Ondansetron 4 Mg/2 Ml Sdv) 4 mg IVPUSH ONETIME ONE Stop: 02/28/21 10:24 Last Admin: 02/28/21 10:35 Dose: 4 mg Documented by: - Exam Quality Assessment: DVT Prophylaxis General: Alert, Oriented, Cooperative, Moderate Distress Lungs: Clear to Auscultation, Normal Respiratory Effort Cardiovascular: Regular Rhythm, No Murmurs, Tachycardia GI/Abdominal Exam: Soft, No Organomegaly, Distended, Tender. No: Guarding, Rigid, Rebound Extremities: Non-Tender, No Pedal Edema - Patient Data Lab Results Last 24 hrs: Laboratory Results - last 24 hr 02/28/21 02/28/21 02/28/21 Range/Units 12:29 12:45 13:04 WBC (4.5-11.0) K/uL RBC (3.30-5.50) M/uL Hgb (12.0-15.0) g/dL Hct (36.0-48.0) % MCV (80-98) fL MCH (27-31) pg MCHC (32-36) % Plt Count (150-400) K/uL Neut % (Auto) (36-66) % Lymph % (Auto) (24-44) % [place] % (Auto) (2-6) % Eos % (Auto) (2-4) % Baso % (Auto) (0-1) % Sodium (140-148) mmol/L Potassium (3.6-5.2) mmol/L Chloride (100-108) mmol/L Carbon Dioxide (21-32) mmol/L Anion Gap (5.0-14.0) mmol/L BUN (7-18) mg/dL Creatinine (0.6-1.0) mg/dL Est Cr Clr Drug Dosing mL/min Estimated GFR (MDRD) (>60) Glucose 440 H* (74-106) mg/dL POC Glucose 403 H* (74-106) mg/dL Calcium (8.5-10.1) mg/dL Phosphorus (2.5-4.9) mg/dL Magnesium 1.7 L (1.8-2.4) mg/dL Amylase (25-115) U/L Lipase (73-393) U/L 02/28/21 02/28/21 02/28/21 Range/Units 13:04 15:19 15:20 WBC (4.5-11.0) K/uL RBC (3.30-5.50) M/uL Hgb (12.0-15.0) g/dL Hct (36.0-48.0) % MCV (80-98) fL MCH (27-31) pg MCHC (32-36) % Plt Count (150-400) K/uL Neut % (Auto) (36-66) % Lymph % (Auto) (24-44) % [place] % (Auto) (2-6) % Eos % (Auto) (2-4) % Baso % (Auto) (0-1) % Sodium 131 L (140-148) mmol/L Potassium 3.6 3.6 (3.6-5.2) mmol/L Chloride 99 L (100-108) mmol/L Carbon Dioxide 10 L D (21-32) mmol/L Anion Gap 25.6 H (5.0-14.0) mmol/L BUN 17 D (7-18) mg/dL Creatinine 1.9 H D (0.6-1.0) mg/dL Est Cr Clr Drug Dosing 27.56 mL/min Estimated GFR (MDRD) 26 L (>60) Glucose 410 H* (74-106) mg/dL POC Glucose 284 H (74-106) mg/dL Calcium 8.3 L (8.5-10.1) mg/dL Phosphorus 3.0 (2.5-4.9) mg/dL Magnesium (1.8-2.4) mg/dL Amylase (25-115) U/L Lipase (73-393) U/L 02/28/21 02/28/21 02/28/21 Range/Units 16:16 17:20 18:09 WBC (4.5-11.0) K/uL RBC (3.30-5.50) M/uL Hgb (12.0-15.0) g/dL Hct (36.0-48.0) % MCV (80-98) fL MCH (27-31) pg MCHC (32-36) % Plt Count (150-400) K/uL Neut % (Auto) (36-66) % Lymph % (Auto) (24-44) % [place] % (Auto) (2-6) % Eos % (Auto) (2-4) % Baso % (Auto) (0-1) % Sodium 132 L (140-148) mmol/L Potassium 4.4 (3.6-5.2) mmol/L Chloride 103 (100-108) mmol/L Carbon Dioxide 12 L (21-32) mmol/L Anion Gap 21.4 H (5.0-14.0) mmol/L BUN 19 H (7-18) mg/dL Creatinine 1.8 H (0.6-1.0) mg/dL Est Cr Clr Drug Dosing 29.09 mL/min Estimated GFR (MDRD) 28 L (>60) Glucose 204 H (74-106) mg/dL POC Glucose 234 H 158 H (74-106) mg/dL Calcium 8.3 L (8.5-10.1) mg/dL Phosphorus (2.5-4.9) mg/dL Magnesium (1.8-2.4) mg/dL Amylase (25-115) U/L Lipase (73-393) U/L 02/28/21 02/28/21 02/28/21 Range/Units 19:10 19:20 20:04 WBC (4.5-11.0) K/uL RBC (3.30-5.50) M/uL Hgb (12.0-15.0) g/dL Hct (36.0-48.0) % MCV (80-98) fL MCH (27-31) pg MCHC (32-36) % Plt Count (150-400) K/uL Neut % (Auto) (36-66) % Lymph % (Auto) (24-44) % [place] % (Auto) (2-6) % Eos % (Auto) (2-4) % Baso % (Auto) (0-1) % Sodium (140-148) mmol/L Potassium 3.5 L (3.6-5.2) mmol/L Chloride (100-108) mmol/L Carbon Dioxide (21-32) mmol/L Anion Gap (5.0-14.0) mmol/L BUN (7-18) mg/dL Creatinine (0.6-1.0) mg/dL Est Cr Clr Drug Dosing mL/min Estimated GFR (MDRD) (>60) Glucose (74-106) mg/dL POC Glucose 185 H 206 H (74-106) mg/dL Calcium (8.5-10.1) mg/dL Phosphorus 2.0 L (2.5-4.9) mg/dL Magnesium 1.6 L (1.8-2.4) mg/dL Amylase (25-115) U/L Lipase (73-393) U/L 02/28/21 02/28/21 02/28/21 Range/Units 21:05 21:24 21:58 WBC (4.5-11.0) K/uL RBC (3.30-5.50) M/uL Hgb (12.0-15.0) g/dL Hct (36.0-48.0) % MCV (80-98) fL MCH (27-31) pg MCHC (32-36) % Plt Count (150-400) K/uL Neut % (Auto) (36-66) % Lymph % (Auto) (24-44) % [place] % (Auto) (2-6) % Eos % (Auto) (2-4) % Baso % (Auto) (0-1) % Sodium 132 L (140-148) mmol/L Potassium 3.5 L (3.6-5.2) mmol/L Chloride 101 (100-108) mmol/L Carbon Dioxide 16 L (21-32) mmol/L Anion Gap 18.5 H (5.0-14.0) mmol/L BUN 18 (7-18) mg/dL Creatinine 2.0 H (0.6-1.0) mg/dL Est Cr Clr Drug Dosing 26.18 mL/min Estimated GFR (MDRD) 25 L (>60) Glucose 244 H (74-106) mg/dL POC Glucose 209 H 236 H (74-106) mg/dL Calcium 8.5 (8.5-10.1) mg/dL Phosphorus (2.5-4.9) mg/dL Magnesium (1.8-2.4) mg/dL Amylase (25-115) U/L Lipase (73-393) U/L 02/28/21 02/28/21 02/28/21 Range/Units 23:12 23:24 23:58 WBC (4.5-11.0) K/uL RBC (3.30-5.50) M/uL Hgb (12.0-15.0) g/dL Hct (36.0-48.0) % MCV (80-98) fL MCH (27-31) pg MCHC (32-36) % Plt Count (150-400) K/uL Neut % (Auto) (36-66) % Lymph % (Auto) (24-44) % [place] % (Auto) (2-6) % Eos % (Auto) (2-4) % Baso % (Auto) (0-1) % Sodium (140-148) mmol/L Potassium 3.6 (3.6-5.2) mmol/L Chloride (100-108) mmol/L Carbon Dioxide (21-32) mmol/L Anion Gap (5.0-14.0) mmol/L BUN (7-18) mg/dL Creatinine (0.6-1.0) mg/dL Est Cr Clr Drug Dosing mL/min Estimated GFR (MDRD) (>60) Glucose (74-106) mg/dL POC Glucose 227 H 234 H (74-106) mg/dL Calcium (8.5-10.1) mg/dL Phosphorus (2.5-4.9) mg/dL Magnesium (1.8-2.4) mg/dL Amylase (25-115) U/L Lipase (73-393) U/L 03/01/21 03/01/21 03/01/21 Range/Units 00:58 01:27 02:02 WBC (4.5-11.0) K/uL RBC (3.30-5.50) M/uL Hgb (12.0-15.0) g/dL Hct (36.0-48.0) % MCV (80-98) fL MCH (27-31) pg MCHC (32-36) % Plt Count (150-400) K/uL Neut % (Auto) (36-66) % Lymph % (Auto) (24-44) % [place] % (Auto) (2-6) % Eos % (Auto) (2-4) % Baso % (Auto) (0-1) % Sodium 132 L (140-148) mmol/L Potassium 3.6 (3.6-5.2) mmol/L Chloride 102 (100-108) mmol/L Carbon Dioxide 17 L (21-32) mmol/L Anion Gap 16.6 H (5.0-14.0) mmol/L BUN 17 (7-18) mg/dL Creatinine 1.9 H (0.6-1.0) mg/dL Est Cr Clr Drug Dosing 27.56 mL/min Estimated GFR (MDRD) 26 L (>60) Glucose 248 H (74-106) mg/dL POC Glucose 226 H 247 H (74-106) mg/dL Calcium 8.3 L (8.5-10.1) mg/dL Phosphorus 1.3 L (2.5-4.9) mg/dL Magnesium 2.1 (1.8-2.4) mg/dL Amylase (25-115) U/L Lipase (73-393) U/L 03/01/21 03/01/21 03/01/21 Range/Units 02:56 03:21 03:51 WBC (4.5-11.0) K/uL RBC (3.30-5.50) M/uL Hgb (12.0-15.0) g/dL Hct (36.0-48.0) % MCV (80-98) fL MCH (27-31) pg MCHC (32-36) % Plt Count (150-400) K/uL Neut % (Auto) (36-66) % Lymph % (Auto) (24-44) % [place] % (Auto) (2-6) % Eos % (Auto) (2-4) % Baso % (Auto) (0-1) % Sodium (140-148) mmol/L Potassium 3.5 L (3.6-5.2) mmol/L Chloride (100-108) mmol/L Carbon Dioxide (21-32) mmol/L Anion Gap (5.0-14.0) mmol/L BUN (7-18) mg/dL Creatinine (0.6-1.0) mg/dL Est Cr Clr Drug Dosing mL/min Estimated GFR (MDRD) (>60) Glucose (74-106) mg/dL POC Glucose 242 H 220 H (74-106) mg/dL Calcium (8.5-10.1) mg/dL Phosphorus (2.5-4.9) mg/dL Magnesium (1.8-2.4) mg/dL Amylase (25-115) U/L Lipase (73-393) U/L 03/01/21 03/01/21 03/01/21 Range/Units 05:07 05:30 05:30 WBC 7.5 (4.5-11.0) K/uL RBC 3.35 (3.30-5.50) M/uL Hgb 10.8 L D (12.0-15.0) g/dL Hct 32.6 L (36.0-48.0) % MCV 97 (80-98) fL MCH 32 H (27-31) pg MCHC 33 (32-36) % Plt Count 159 (150-400) K/uL Neut % (Auto) 72.1 H (36-66) % Lymph % (Auto) 13.2 L (24-44) % [place] % (Auto) 14.3 H (2-6) % Eos % (Auto) 0.1 L (2-4) % Baso % (Auto) 0.3 (0-1) % Sodium 131 L (140-148) mmol/L Potassium 3.5 L (3.6-5.2) mmol/L Chloride 103 (100-108) mmol/L Carbon Dioxide 16 L (21-32) mmol/L Anion Gap 15.5 H (5.0-14.0) mmol/L BUN 16 (7-18) mg/dL Creatinine 1.9 H (0.6-1.0) mg/dL Est Cr Clr Drug Dosing 27.56 mL/min Estimated GFR (MDRD) 26 L (>60) Glucose 255 H (74-106) mg/dL POC Glucose 244 H (74-106) mg/dL Calcium 8.4 L (8.5-10.1) mg/dL Phosphorus (2.5-4.9) mg/dL Magnesium (1.8-2.4) mg/dL Amylase (25-115) U/L Lipase (73-393) U/L 03/01/21 03/01/21 03/01/21 Range/Units 05:30 05:56 06:59 WBC (4.5-11.0) K/uL RBC (3.30-5.50) M/uL Hgb (12.0-15.0) g/dL Hct (36.0-48.0) % MCV (80-98) fL MCH (27-31) pg MCHC (32-36) % Plt Count (150-400) K/uL Neut % (Auto) (36-66) % Lymph % (Auto) (24-44) % [place] % (Auto) (2-6) % Eos % (Auto) (2-4) % Baso % (Auto) (0-1) % Sodium (140-148) mmol/L Potassium (3.6-5.2) mmol/L Chloride (100-108) mmol/L Carbon Dioxide (21-32) mmol/L Anion Gap (5.0-14.0) mmol/L BUN (7-18) mg/dL Creatinine (0.6-1.0) mg/dL Est Cr Clr Drug Dosing mL/min Estimated GFR (MDRD) (>60) Glucose (74-106) mg/dL POC Glucose 231 H 228 H (74-106) mg/dL Calcium (8.5-10.1) mg/dL Phosphorus (2.5-4.9) mg/dL Magnesium (1.8-2.4) mg/dL Amylase 290 H D (25-115) U/L Lipase 2480 H (73-393) U/L 03/01/21 03/01/21 03/01/21 Range/Units 07:15 07:58 09:15 WBC (4.5-11.0) K/uL RBC (3.30-5.50) M/uL Hgb (12.0-15.0) g/dL Hct (36.0-48.0) % MCV (80-98) fL MCH (27-31) pg MCHC (32-36) % Plt Count (150-400) K/uL Neut % (Auto) (36-66) % Lymph % (Auto) (24-44) % [place] % (Auto) (2-6) % Eos % (Auto) (2-4) % Baso % (Auto) (0-1) % Sodium 131 L (140-148) mmol/L Potassium 3.6 3.4 L (3.6-5.2) mmol/L Chloride 103 (100-108) mmol/L Carbon Dioxide 18 L (21-32) mmol/L Anion Gap 13.4 (5.0-14.0) mmol/L BUN 17 (7-18) mg/dL Creatinine 1.9 H (0.6-1.0) mg/dL Est Cr Clr Drug Dosing 27.56 mL/min Estimated GFR (MDRD) 26 L (>60) Glucose 261 H (74-106) mg/dL POC Glucose 259 H (74-106) mg/dL Calcium 8.5 (8.5-10.1) mg/dL Phosphorus 1.5 L (2.5-4.9) mg/dL Magnesium 2.1 (1.8-2.4) mg/dL Amylase (25-115) U/L Lipase (73-393) U/L 03/01/21 03/01/21 03/01/21 Range/Units 09:15 09:51 10:56 WBC (4.5-11.0) K/uL RBC (3.30-5.50) M/uL Hgb (12.0-15.0) g/dL Hct (36.0-48.0) % MCV (80-98) fL MCH (27-31) pg MCHC (32-36) % Plt Count (150-400) K/uL Neut % (Auto) (36-66) % Lymph % (Auto) (24-44) % [place] % (Auto) (2-6) % Eos % (Auto) (2-4) % Baso % (Auto) (0-1) % Sodium (140-148) mmol/L Potassium (3.6-5.2) mmol/L Chloride (100-108) mmol/L Carbon Dioxide (21-32) mmol/L Anion Gap (5.0-14.0) mmol/L BUN (7-18) mg/dL Creatinine (0.6-1.0) mg/dL Est Cr Clr Drug Dosing mL/min Estimated GFR (MDRD) (>60) Glucose (74-106) mg/dL POC Glucose 244 H 240 H 192 H (74-106) mg/dL Calcium (8.5-10.1) mg/dL Phosphorus (2.5-4.9) mg/dL Magnesium (1.8-2.4) mg/dL Amylase (25-115) U/L Lipase (73-393) U/L 03/01/21 03/01/21 Range/Units 11:15 11:59 WBC (4.5-11.0) K/uL RBC (3.30-5.50) M/uL Hgb (12.0-15.0) g/dL Hct (36.0-48.0) % MCV (80-98) fL MCH (27-31) pg MCHC (32-36) % Plt Count (150-400) K/uL Neut % (Auto) (36-66) % Lymph % (Auto) (24-44) % [place] % (Auto) (2-6) % Eos % (Auto) (2-4) % Baso % (Auto) (0-1) % Sodium (140-148) mmol/L Potassium 3.4 L (3.6-5.2) mmol/L Chloride (100-108) mmol/L Carbon Dioxide (21-32) mmol/L Anion Gap (5.0-14.0) mmol/L BUN (7-18) mg/dL Creatinine (0.6-1.0) mg/dL Est Cr Clr Drug Dosing mL/min Estimated GFR (MDRD) (>60) Glucose (74-106) mg/dL POC Glucose 234 H (74-106) mg/dL Calcium (8.5-10.1) mg/dL Phosphorus (2.5-4.9) mg/dL Magnesium (1.8-2.4) mg/dL Amylase (25-115) U/L Lipase (73-393) U/L Result Diagrams: 03/01/21 05:30 03/01/21 11:15 Sepsis Event Note - Evaluation Sepsis Screening Result: No Definite Risk - Focused Exam Vital Signs: Vital Signs Temp Pulse Resp BP BP Pulse Ox 03/01/21 12:00 97.8 F 20 105/51 L 97 03/01/21 11:00 20 129/64 98 03/01/21 10:02 134/61 03/01/21 10:00 20 134/61 97 03/01/21 09:00 20 149/80 H 96 03/01/21 07:55 97 F 16 154/83 H 98 03/01/21 06:00 110 H 17 127/64 97 03/01/21 05:00 111 H 18 129/66 97 03/01/21 04:00 112 H 17 155/78 H 96 03/01/21 03:00 96.1 F L 112 H 17 155/71 H 97 03/01/21 02:00 120 H 22 H 144/75 H 96 03/01/21 01:00 118 H 13 150/76 H 97 - Problem List Review Problem List Initiated/Reviewed/Updated: Yes - My Orders Last 24 Hours: My Active Orders 02/28/21 Lunch Consistent Carbohydrate Diet [DIET] 02/28/21 13:11 Blood Glucose Check, Bedside [RC] Q1H Diabetes Education [RC] Click to Edit Vital Signs [RC] Q1H Consult to Diabetic Nurse Specialist [CONS] Urgent Dextrose 5%-0.45% NaCl [Dextrose 5%-1/2 NS] 1,000 ml IV .CONTINUOUS Magnesium Sulfate/Water [Magnesium Sulfate in Water 2 GM/50 ML] 50 ml IV ONETIME Potassium Chloride [KCL in Water 20 MEQ/100 ML] 20 meq Premix Bag 1 bag IV ASDIRECTED Potassium Chloride [KCL in Water 20 MEQ/100 ML] 20 meq Premix Bag 1 bag IV Q2H Potassium Chloride [KCL in Water 20 MEQ/100 ML] 20 meq Premix Bag 1 bag IV Q2H Potassium Chloride [Potassium Chloride Solution] 20 meq PO NOW PRN Potassium Chloride [Potassium Chloride Solution] 40 meq PO NOW PRN Potassium Chloride [Potassium Chloride Solution] 40 meq PO Q2H PRN Sodium Chloride 0.9% [Normal Saline] 2,000 ml IV .CONTINUOUS Sodium Phosphate 60 mmole Sodium Chloride 0.9% [Normal Saline] 250 ml IV ONETIME 02/28/21 13:12 Notify Provider Laboratory Res [RC] ASDIRECTED 02/28/21 13:13 Notify Provider Laboratory Res [RC] ASDIRECTED Notify Provider Laboratory Res [RC] ASDIRECTED 02/28/21 13:15 Medication Continuation Instructions [OM.PC] ASDIRECTED Medication Discontinuation Instructions [OM.PC] ASDIRECTED 02/28/21 13:18 Resuscitation Status Routine 02/28/21 16:40 Acetaminophen [TylenoL] 650 mg PO Q4H PRN Insulin Regular in 0.9 % NACL [Myxredlin in NS 100 UNIT/100 ML] 100 ml IV ASDIRECTED Ondansetron [Zofran] 4 mg IV Q4H PRN Sodium Chloride 0.9% [Saline Flush] 10 ml FLUSH ASDIRECTED PRN polyethylene glycoL 3350 [MiraLAX] 17 gm PO DAILY PRN 02/28/21 16:40 Patient Status [ADT] Routine Ambulate [RC] QID Cardiac Monitoring [RC] Q6H Height and Weight [RC] DAILY Intake and Output [RC] QSHIFT Notify Provider Vital Signs [RC] ASDIRECTED Notify Provider [RC] PRN Oxygen Therapy [RC] PRN Peripheral IV Care [RC] Q12H Up to Chair [RC] QID Peripheral IV Insertion Adult [OM.PC] Routine 02/28/21 17:00 Enoxaparin [Lovenox] 40 mg SUBCUT Q24H 02/28/21 17:41 HYDROmorphone [Dilaudid] 0.5 mg IVPUSH Q2H PRN 02/28/21 19:42 CIWAA Assessment [RC] Q4H Notify Provider [RC] PRN 02/28/21 19:45 LORazepam [Ativan] See Protocol IV ASDIRECTED LORazepam [Ativan] See Protocol PO ASDIRECTED 03/01/21 07:30 Pantoprazole [ProTONIX] 40 mg PO ACBREAKFAST 03/01/21 09:00 Clopidogrel [Plavix] 75 mg PO DAILY Insulin NPH/Insulin Reg,Human [HumuLIN 70-30] 15 units SUBCUT BID atorvaSTATin [Lipitor] 80 mg PO DAILY hydroCHLOROthiazide 25 mg PO DAILY lisinopriL [Prinivil] 20 mg PO DAILY 03/01/21 12:00 Potassium Chloride 20 meq Lidocaine 1% [Xylocaine 1%] 2 ml Sodium Chloride 0.9% [Normal Saline] 100 ml IV ONETIME 03/01/21 12:44 Diabetes Education [RC] Click to Edit 03/01/21 12:45 BASIC METABOLIC PANEL,BMP [CHEM] Q4H MAGNESIUM [CHEM] Q6H PHOSPHORUS [CHEM] Q6H 03/01/21 14:45 POTASSIUM,K [CHEM] Q2H 03/01/21 16:45 BASIC METABOLIC PANEL,BMP [CHEM] Q4H 03/01/21 18:45 MAGNESIUM [CHEM] Q6H PHOSPHORUS [CHEM] Q6H POTASSIUM,K [CHEM] Q2H 03/01/21 20:45 BASIC METABOLIC PANEL,BMP [CHEM] Q4H 03/01/21 22:45 POTASSIUM,K [CHEM] Q2H 03/02/21 00:45 BASIC METABOLIC PANEL,BMP [CHEM] Q4H MAGNESIUM [CHEM] Q6H PHOSPHORUS [CHEM] Q6H POTASSIUM,K [CHEM] Q2H 03/02/21 02:45 POTASSIUM,K [CHEM] Q2H 03/02/21 04:45 BASIC METABOLIC PANEL,BMP [CHEM] Q4H POTASSIUM,K [CHEM] Q2H 03/02/21 05:00 AMYLASE [CHEM] Timed LIPASE [CHEM] Timed 03/02/21 06:45 MAGNESIUM [CHEM] Q6H PHOSPHORUS [CHEM] Q6H POTASSIUM,K [CHEM] Q2H 03/02/21 08:45 BASIC METABOLIC PANEL,BMP [CHEM] Q4H POTASSIUM,K [CHEM] Q2H 03/02/21 10:45 POTASSIUM,K [CHEM] Q2H - Plan Plan:: ASSESSMENT AND PLAN DIABETIC KETOACIDOSIS-no prior history of ketoacidosis, she has had type 2 diabetes mellitus for some time. Likely secondary to current acute pancreatitis. Ketoacidosis improved but not totally resolved -IV fluids per ketoacidosis protocol -Continuous infusion of IV insulin per protocol -Monitoring and management of electrolytes per protocol ACUTE PANCREATITIS-she does admit to regular daily alcohol use which is likely the underlying cause. Abdominal pain has improved but not resolved -N.p.o. -IV fluids as above -Pain medication as needed ALCOHOL WITHDRAWAL -Alcohol withdrawal protocol MAINTENANCE ISSUES -DVT prophylaxis; Lovenox 40 mg subcu daily -GI prophylaxis; not indicated -Paul catheter; not indicated -Nutrition; n.p.o. -Nicotine dependence; not required CODE STATUS-FULL CODE ADMISSION STATUS-patient will be admitted to inpatient status, expect at least a 2 night hospital stay for evaluation and management of problems as outlined above. At the time of this admission I do not reasonably expected evaluation and management of this problem will require more than a 96 hour hospital stay. DISPOSITION-anticipate discharge to home after the hospital stay. PRIMARY CARE PROVIDER-Dr. Portillo
[2021-03-01] MEDS: Enoxaparin 40 MG/0.4 ML Syringe SUBCUT SCH (16:12)
[2021-03-01] MEDS ORDERED: Potassium Phos in 0.9 % NaCl 250 ML IV ONE ×2 (19:41→23:00)
[2021-03-02] MEDS: Dextrose 5%-0.45% NaCl 1,000 ML IV PRN ×4 (00:29→20:11)
[2021-03-02] MEDS: Insulin Regular in 0.9 % NACL 100 ML IV SCH ×2 (01:56→14:09)
[2021-03-02] MEDS: Potassium Chloride 10% 20 MEQ/15 ML Soln 15 ML UD Cup PO PRN (03:49)
[2021-03-02] MEDS: Potassium Chloride 20 MEQ in Premix Bag 1 BAG IV PRN ×2 (06:03→18:16)
[2021-03-02] MEDS: Pantoprazole 40 MG Tab.CR PO SCH ×2 (07:43→09:43)
[2021-03-02] MEDS: Insulin NPH/Insulin Regular,Human 70-30 100 Units/ML 10 ML Vial SUBCUT SCH ×2 (09:40→21:12)
[2021-03-02] MEDS: Clopidogrel 75 MG Tab PO SCH (09:43)
[2021-03-02] MEDS: atorvaSTATin 20 MG Tab PO SCH (09:43)
[2021-03-02] MEDS: Lisinopril 20 MG Tab PO SCH (09:43)
[2021-03-02] MEDS: Hydrochlorothiazide 25 MG Tab PO SCH (09:43)
[2021-03-02] MEDS ORDERED: Potassium Chloride 20 MEQ, Lidocaine 1% 2 ML in Sodium Chloride 0.9% 100 ML IV ONE ×3 (10:00→14:30)
[2021-03-02] MEDS ORDERED: Magnesium Sulfate/Water 2 GM in Premix Bag 1 BAG IV ONE (10:00)
--- NOTE | 2021-03-02 12:53 | PCM.PN ---
- General Info Date of Service: 03/02/21 Subjective Update: Ms. Aguirre has continued to experience ketoacidosis, improved from admission but not resolved yet. She also continues to experience some abdominal pain although this is improved from admission and she has had no further episodes of nausea. She has been intermittently confused and agitated likely secondary to alcohol withdrawal. After further discussion with her son and she likely drinks at least 8 to 12 ounces of alcohol daily. Functional Status: Reports: Urinating. Denies: Tolerating Diet, Ambulating - Review of Systems General: Reports: Weakness, Fatigue Pulmonary: Reports: No Symptoms Cardiovascular: Reports: No Symptoms Gastrointestinal: Reports: Abdominal Pain. Denies: Difficulty Swallowing, Nause a, Vomiting Genitourinary: Reports: No Symptoms - Patient Data Vitals - Most Recent: Last Vital Signs Temp 97.3 F 03/02/21 12:00 Pulse 98 03/02/21 06:00 Resp 18 03/02/21 12:00 BP 93/47 L 03/02/21 12:00 Pulse Ox 99 03/02/21 12:00 Weight - Most Recent: 186 lb 8.177 oz I&O - Last 24 Hours: Intake & Output 03/01/21 03/02/21 03/02/21 22:59 06:59 14:59 Intake Total 2357 2302 Balance 2357 2302 Lab Results Last 24 Hours: Laboratory Results - last 24 hr 03/01/21 03/01/21 03/01/21 Range/Units 12:52 12:56 13:58 Sodium 131 L (140-148) mmol/L Potassium 3.7 (3.6-5.2) mmol/L Chloride 103 (100-108) mmol/L Carbon Dioxide 17 L (21-32) mmol/L Anion Gap 14.7 H (5.0-14.0) mmol/L BUN 16 (7-18) mg/dL Creatinine 1.9 H (0.6-1.0) mg/dL Est Cr Clr Drug Dosing 27.56 mL/min Estimated GFR (MDRD) 26 L (>60) Glucose 280 H (74-106) mg/dL POC Glucose 252 H 267 H (74-106) mg/dL Calcium 8.5 (8.5-10.1) mg/dL Phosphorus 1.0 L (2.5-4.9) mg/dL Magnesium 1.9 (1.8-2.4) mg/dL Amylase (25-115) U/L Lipase (73-393) U/L 03/01/21 03/01/21 03/01/21 Range/Units 14:51 15:17 16:02 Sodium (140-148) mmol/L Potassium 3.8 (3.6-5.2) mmol/L Chloride (100-108) mmol/L Carbon Dioxide (21-32) mmol/L Anion Gap (5.0-14.0) mmol/L BUN (7-18) mg/dL Creatinine (0.6-1.0) mg/dL Est Cr Clr Drug Dosing mL/min Estimated GFR (MDRD) (>60) Glucose (74-106) mg/dL POC Glucose 280 H 294 H (74-106) mg/dL Calcium (8.5-10.1) mg/dL Phosphorus (2.5-4.9) mg/dL Magnesium (1.8-2.4) mg/dL Amylase (25-115) U/L Lipase (73-393) U/L 03/01/21 03/01/21 03/01/21 Range/Units 16:46 16:56 17:58 Sodium 130 L (140-148) mmol/L Potassium 3.6 (3.6-5.2) mmol/L Chloride 103 (100-108) mmol/L Carbon Dioxide 17 L (21-32) mmol/L Anion Gap 13.6 (5.0-14.0) mmol/L BUN 17 (7-18) mg/dL Creatinine 1.9 H (0.6-1.0) mg/dL Est Cr Clr Drug Dosing 27.56 mL/min Estimated GFR (MDRD) 26 L (>60) Glucose 298 H (74-106) mg/dL POC Glucose 271 H 284 H (74-106) mg/dL Calcium 8.5 (8.5-10.1) mg/dL Phosphorus (2.5-4.9) mg/dL Magnesium (1.8-2.4) mg/dL Amylase (25-115) U/L Lipase (73-393) U/L 03/01/21 03/01/21 03/01/21 Range/Units 18:50 19:05 20:00 Sodium (140-148) mmol/L Potassium 3.9 (3.6-5.2) mmol/L Chloride (100-108) mmol/L Carbon Dioxide (21-32) mmol/L Anion Gap (5.0-14.0) mmol/L BUN (7-18) mg/dL Creatinine (0.6-1.0) mg/dL Est Cr Clr Drug Dosing mL/min Estimated GFR (MDRD) (>60) Glucose (74-106) mg/dL POC Glucose 301 H 322 H (74-106) mg/dL Calcium (8.5-10.1) mg/dL Phosphorus 0.9 L (2.5-4.9) mg/dL Magnesium 1.9 (1.8-2.4) mg/dL Amylase (25-115) U/L Lipase (73-393) U/L 03/01/21 03/01/21 03/01/21 Range/Units 20:48 20:50 21:56 Sodium 130 L (140-148) mmol/L Potassium 3.8 (3.6-5.2) mmol/L Chloride 103 (100-108) mmol/L Carbon Dioxide 17 L (21-32) mmol/L Anion Gap 13.8 (5.0-14.0) mmol/L BUN 17 (7-18) mg/dL Creatinine 1.9 H (0.6-1.0) mg/dL Est Cr Clr Drug Dosing 27.56 mL/min Estimated GFR (MDRD) 26 L (>60) Glucose 323 H (74-106) mg/dL POC Glucose 300 H 300 H (74-106) mg/dL Calcium 8.4 L (8.5-10.1) mg/dL Phosphorus (2.5-4.9) mg/dL Magnesium (1.8-2.4) mg/dL Amylase (25-115) U/L Lipase (73-393) U/L 03/01/21 03/01/21 03/02/21 Range/Units 22:52 22:55 00:14 Sodium (140-148) mmol/L Potassium 3.6 (3.6-5.2) mmol/L Chloride (100-108) mmol/L Carbon Dioxide (21-32) mmol/L Anion Gap (5.0-14.0) mmol/L BUN (7-18) mg/dL Creatinine (0.6-1.0) mg/dL Est Cr Clr Drug Dosing mL/min Estimated GFR (MDRD) (>60) Glucose (74-106) mg/dL POC Glucose 261 H 269 H (74-106) mg/dL Calcium (8.5-10.1) mg/dL Phosphorus (2.5-4.9) mg/dL Magnesium (1.8-2.4) mg/dL Amylase (25-115) U/L Lipase (73-393) U/L 03/02/21 03/02/21 03/02/21 Range/Units 00:55 01:00 01:56 Sodium 131 L (140-148) mmol/L Potassium 3.6 (3.6-5.2) mmol/L Chloride 105 (100-108) mmol/L Carbon Dioxide 16 L (21-32) mmol/L Anion Gap 13.6 (5.0-14.0) mmol/L BUN 16 (7-18) mg/dL Creatinine 1.8 H (0.6-1.0) mg/dL Est Cr Clr Drug Dosing 29.09 mL/min Estimated GFR (MDRD) 28 L (>60) Glucose 292 H (74-106) mg/dL POC Glucose 254 H 271 H (74-106) mg/dL Calcium 8.3 L (8.5-10.1) mg/dL Phosphorus 2.2 L (2.5-4.9) mg/dL Magnesium 1.8 (1.8-2.4) mg/dL Amylase (25-115) U/L Lipase (73-393) U/L 03/02/21 03/02/21 03/02/21 Range/Units 02:55 02:56 04:04 Sodium (140-148) mmol/L Potassium 3.3 L (3.6-5.2) mmol/L Chloride (100-108) mmol/L Carbon Dioxide (21-32) mmol/L Anion Gap (5.0-14.0) mmol/L BUN (7-18) mg/dL Creatinine (0.6-1.0) mg/dL Est Cr Clr Drug Dosing mL/min Estimated GFR (MDRD) (>60) Glucose (74-106) mg/dL POC Glucose 272 H 229 H (74-106) mg/dL Calcium (8.5-10.1) mg/dL Phosphorus (2.5-4.9) mg/dL Magnesium (1.8-2.4) mg/dL Amylase (25-115) U/L Lipase (73-393) U/L 03/02/21 03/02/21 03/02/21 Range/Units 05:00 05:00 05:05 Sodium 132 L (140-148) mmol/L Potassium 3.7 (3.6-5.2) mmol/L Chloride 106 (100-108) mmol/L Carbon Dioxide 15 L (21-32) mmol/L Anion Gap 14.7 H (5.0-14.0) mmol/L BUN 14 (7-18) mg/dL Creatinine 1.7 H (0.6-1.0) mg/dL Est Cr Clr Drug Dosing 30.80 mL/min Estimated GFR (MDRD) 30 L (>60) Glucose 305 H (74-106) mg/dL POC Glucose 276 H (74-106) mg/dL Calcium 8.4 L (8.5-10.1) mg/dL Phosphorus (2.5-4.9) mg/dL Magnesium (1.8-2.4) mg/dL Amylase 82 D (25-115) U/L Lipase 696 H (73-393) U/L 03/02/21 03/02/21 03/02/21 Range/Units 06:00 06:50 06:51 Sodium (140-148) mmol/L Potassium 3.5 L (3.6-5.2) mmol/L Chloride (100-108) mmol/L Carbon Dioxide (21-32) mmol/L Anion Gap (5.0-14.0) mmol/L BUN (7-18) mg/dL Creatinine (0.6-1.0) mg/dL Est Cr Clr Drug Dosing mL/min Estimated GFR (MDRD) (>60) Glucose (74-106) mg/dL POC Glucose 270 H 284 H (74-106) mg/dL Calcium (8.5-10.1) mg/dL Phosphorus 2.0 L (2.5-4.9) mg/dL Magnesium 1.7 L (1.8-2.4) mg/dL Amylase (25-115) U/L Lipase (73-393) U/L 03/02/21 03/02/21 03/02/21 Range/Units 08:08 08:59 09:02 Sodium 133 L (140-148) mmol/L Potassium 3.7 (3.6-5.2) mmol/L Chloride 106 (100-108) mmol/L Carbon Dioxide 17 L (21-32) mmol/L Anion Gap 13.7 (5.0-14.0) mmol/L BUN 13 (7-18) mg/dL Creatinine 1.7 H (0.6-1.0) mg/dL Est Cr Clr Drug Dosing 30.80 mL/min Estimated GFR (MDRD) 30 L (>60) Glucose 294 H (74-106) mg/dL POC Glucose 281 H 267 H (74-106) mg/dL Calcium 8.5 (8.5-10.1) mg/dL Phosphorus (2.5-4.9) mg/dL Magnesium (1.8-2.4) mg/dL Amylase (25-115) U/L Lipase (73-393) U/L 03/02/21 03/02/21 03/02/21 Range/Units 10:00 10:45 10:55 Sodium (140-148) mmol/L Potassium 3.6 (3.6-5.2) mmol/L Chloride (100-108) mmol/L Carbon Dioxide (21-32) mmol/L Anion Gap (5.0-14.0) mmol/L BUN (7-18) mg/dL Creatinine (0.6-1.0) mg/dL Est Cr Clr Drug Dosing mL/min Estimated GFR (MDRD) (>60) Glucose (74-106) mg/dL POC Glucose 246 H 248 H (74-106) mg/dL Calcium (8.5-10.1) mg/dL Phosphorus (2.5-4.9) mg/dL Magnesium (1.8-2.4) mg/dL Amylase (25-115) U/L Lipase (73-393) U/L Med Orders - Current: Current Medications Acetaminophen (Acetaminophen 325 Mg Tab) 650 mg PO Q4H PRN PRN Reason: Pain (Mild 1-3)/fever Atorvastatin Calcium (Atorvastatin 20 Mg Tab) 80 mg PO DAILY [facility] Last Admin: 03/02/21 09:43 Dose: Not Given Documented by: Clopidogrel Bisulfate (Clopidogrel 75 Mg Tab) 75 mg PO DAILY [facility] Last Admin: 03/02/21 09:43 Dose: 75 mg Documented by: Enoxaparin Sodium (Enoxaparin 40 Mg/0.4 Ml Syringe) 40 mg SUBCUT Q24H [facility] Last Admin: 03/01/21 16:12 Dose: 40 mg Documented by: Hydrochlorothiazide (Hydrochlorothiazide 25 Mg Tab) 25 mg PO DAILY [facility] Last Admin: 03/02/21 09:43 Dose: 25 mg Documented by: Hydromorphone HCl (Hydromorphone 0.5 Mg/0.5 Ml Syringe) 0.5 mg IVPUSH Q2H PRN PRN Reason: Pain Last Admin: 02/28/21 17:51 Dose: 0.5 mg Documented by: Sodium Chloride (Normal Saline) 2,000 mls @ 500 mls/hr IV .CONTINUOUS PRN PRN Reason: Blood Glucose Last Admin: 02/28/21 14:24 Dose: 500 mls/hr Documented by: Dextrose/Sodium Chloride (Dextrose 5%-1/2 Ns) 1,000 mls @ 150 mls/hr IV .CONTINUOUS PRN PRN Reason: Blood Glucose Last Admin: 03/02/21 07:26 Dose: 150 mls/hr Documented by: Potassium Chloride 20 meq/ (Premix) 100 mls @ 50 mls/hr IV ASDIRECTED PRN PRN Reason: LOW POTASSIUM Last Admin: 03/02/21 06:03 Dose: 50 mls/hr Documented by: Potassium Chloride 20 meq/ (Premix) 100 mls @ 50 mls/hr IV Q2H PRN PRN Reason: Hypokalemia Potassium Chloride 20 meq/ (Premix) 100 mls @ 50 mls/hr IV Q2H PRN PRN Reason: Hypokalemia Magnesium Sulfate (Magnesium Sulfate In Water 2 Gm/50 Ml) 50 mls @ 25 mls/hr IV ONETIME PRN PRN Reason: low magnesium Last Admin: 02/28/21 20:04 Dose: 25 mls/hr Documented by: Sodium Phosphate 60 mmole/ (Sodium Chloride) 270 mls @ 62.5 mls/hr IV ONETIME PRN PRN Reason: Low phophorus Insulin Regular in 0.9 % NACL (Myxredlin In Ns 100 Unit/100 Ml) 100 mls @ 8.46 mls/hr IV ASDIRECTED [facility]; Protocol Potassium Chloride 20 meq/Lidocaine HCl 2 ml/ Sodium Chloride 112 mls @ 56 mls/hr IV ONETIME ONE Stop: 03/02/21 13:59 Last Admin: 03/02/21 11:47 Dose: 56 mls/hr Documented by: Insulin Human Isoph/Insulin Regular (Insulin Nph/Insulin Regular,Human 70-30 100 Units/Ml 10 Ml Vial) 15 units SUBCUT BID [facility] Last Admin: 03/02/21 09:40 Dose: 15 units Documented by: Lisinopril (Lisinopril 20 Mg Tab) 20 mg PO DAILY [facility] Last Admin: 03/02/21 09:43 Dose: 20 mg Documented by: Lorazepam (Lorazepam 2 Mg/Ml Sdv) 0 mg IV ASDIRECTED [facility]; Protocol Lorazepam (Lorazepam 1 Mg Tab) 0 mg PO ASDIRECTED [facility]; Protocol Last Admin: 03/01/21 22:59 Dose: 1 mg Documented by: Ondansetron HCl (Ondansetron 4 Mg/2 Ml Sdv) 4 mg IV Q4H PRN PRN Reason: Nausea/Vomiting Pantoprazole Sodium (Pantoprazole 40 Mg Tab.Cr) 40 mg PO ACBREAKFAST [facility] Last Admin: 03/02/21 09:43 Dose: 40 mg Documented by: Polyethylene Glycol (Polyethylene Glycol 3350 Powder 17 Gm Packet) 17 gm PO DAILY PRN PRN Reason: Constipation Potassium Chloride (Potassium Chloride 10% 20 Meq/15 Ml Soln 15 Ml Ud Cup) 20 meq PO NOW PRN PRN Reason: Hypokalemia Last Admin: 03/01/21 17:24 Dose: 20 meq Documented by: Potassium Chloride (Potassium Chloride 10% 20 Meq/15 Ml Soln 15 Ml Ud Cup) 40 meq PO NOW PRN PRN Reason: Hypokalemia Last Admin: 03/02/21 03:49 Dose: 40 meq Documented by: Potassium Chloride (Potassium Chloride 10% 20 Meq/15 Ml Soln 15 Ml Ud Cup) 40 meq PO Q2H PRN PRN Reason: Hypokalemia Sodium Chloride (Sodium Chloride 0.9% 10 Ml Syringe) 10 ml FLUSH ASDIRECTED PRN PRN Reason: Keep Vein Open Discontinued Medications Dextrose/Water (50% Dextrose In Water 50 Ml Syringe) 50 ml IVPUSH ASDIRECTED PRN PRN Reason: Hypoglycemia Glucagon (Glucagon,Human Recombinant 1 Mg Vial) 1 mg IM ASDIRECTED PRN PRN Reason: Hypoglycemia Hydromorphone HCl (Hydromorphone 0.5 Mg/0.5 Ml Syringe) 0.5 mg IVPUSH ONETIME ONE Stop: 02/28/21 10:24 Last Admin: 02/28/21 10:40 Dose: 0.5 mg Documented by: Hydromorphone HCl (Hydromorphone 0.5 Mg/0.5 Ml Syringe) 0.5 mg IVPUSH ONETIME ONE Stop: 02/28/21 12:11 Last Admin: 02/28/21 14:12 Dose: 0.5 mg Documented by: Sodium Chloride (Normal Saline) 1,000 mls @ 999 mls/hr IV ASDIRECTED [facility] Last Admin: 02/28/21 10:29 Dose: 999 mls/hr Documented by: Sodium Chloride (Normal Saline) 1,000 mls @ 999 mls/hr IV ASDIRECTED [facility] Last Admin: 02/28/21 11:41 Dose: 999 mls/hr Documented by: Sodium Chloride (Normal Saline) 1,000 mls @ 500 mls/hr IV ASDIRECTED [facility] Insulin Regular in 0.9 % NACL (Myxredlin In Ns 100 Unit/100 Ml) 100 unit in 100 mls @ 8.301 mls/hr IV ASDIRECTED [facility]; Protocol Last Infusion: 03/01/21 05:58 Dose: 0.05 units/kg/hr, 4 mls/hr Documented by: Insulin Regular in 0.9 % NACL (Myxredlin In Ns 100 Unit/100 Ml) 100 mls @ 8.301 mls/hr IV ASDIRECTED [facility]; Protocol Last Infusion: 03/02/21 10:00 Dose: 0.1 units/kg/hr, 8 mls/hr Documented by: Potassium Chloride 20 meq/Lidocaine HCl 2 ml/ Sodium Chloride 112 mls @ 56 mls/hr IV ONETIME ONE Stop: 03/01/21 10:59 Last Admin: 03/01/21 08:50 Dose: 56 mls/hr Documented by: Potassium Chloride 20 meq/Lidocaine HCl 2 ml/ Sodium Chloride 112 mls @ 56 mls/hr IV ONETIME ONE Stop: 03/01/21 13:59 Last Admin: 03/01/21 12:01 Dose: 56 mls/hr Documented by: Potassium Chloride 20 meq/Lidocaine HCl 2 ml/ Sodium Chloride 112 mls @ 56 mls/hr IV ONETIME ONE Stop: 03/01/21 17:59 Last Admin: 03/01/21 16:03 Dose: 56 mls/hr Documented by: Potassium Phosphate (Potassium Phos In Ns 15 Mmol/250 Ml) 250 mls @ 83.333 mls/hr IV ONETIME ONE Stop: 03/01/21 22:40 Last Admin: 03/01/21 20:03 Dose: 83.333 mls/hr Documented by: Potassium Phosphate (Potassium Phos In Ns 15 Mmol/250 Ml) 250 mls @ 83.333 mls/hr IV ONETIME ONE Stop: 03/02/21 01:59 Last Admin: 03/01/21 23:07 Dose: 83.333 mls/hr Documented by: Potassium Chloride 20 meq/Lidocaine HCl 2 ml/ Sodium Chloride 112 mls @ 56 mls/hr IV ONETIME ONE Stop: 03/02/21 11:59 Last Admin: 03/02/21 09:43 Dose: 56 mls/hr Documented by: Magnesium Sulfate 2 gm/ Premix 50 mls @ 25 mls/hr IV ONETIME ONE Stop: 03/02/21 11:59 Last Admin: 03/02/21 09:44 Dose: 25 mls/hr Documented by: Insulin Human Regular (Insulin Regular, Human 100 Units/Ml 3 Ml Vial) 3 unit IVPUSH ONETIME ONE Stop: 02/28/21 11:13 Last Admin: 02/28/21 11:53 Dose: 3 units Documented by: Insulin Human Regular (Insulin Regular, Human 100 Units/Ml 3 Ml Vial) 3 unit SUBCUT ONETIME ONE Stop: 02/28/21 11:14 Last Admin: 02/28/21 11:54 Dose: 3 unit Documented by: Lidocaine HCl (Lidocaine 1% 5 Ml Sdv) 2 ml INJECT ONETIME ONE Stop: 02/28/21 20:10 Last Admin: 02/28/21 20:28 Dose: 2 ml Documented by: Lidocaine HCl (Lidocaine 1% 5 Ml Sdv) Confirm Administered Dose 5 ml .ROUTE .STK-MED ONE Stop: 02/28/21 20:16 Last Admin: 02/28/21 20:28 Dose: Not Given Documented by: Lidocaine HCl (Lidocaine 1% 5 Ml Sdv) 2 ml INJECT ONETIME ONE Stop: 03/01/21 03:49 Last Admin: 03/01/21 03:53 Dose: 2 ml Documented by: Lidocaine HCl (Lidocaine 1% 5 Ml Sdv) Confirm Administered Dose 5 ml .ROUTE .STK-MED ONE Stop: 03/01/21 03:50 Last Admin: 03/01/21 03:53 Dose: Not Given Documented by: Lidocaine HCl (Lidocaine 1% 5 Ml Sdv) 2 ml INJECT ONETIME ONE Stop: 03/02/21 05:52 Last Admin: 03/02/21 06:03 Dose: 2 ml Documented by: Ondansetron HCl (Ondansetron 4 Mg/2 Ml Sdv) 4 mg IVPUSH ONETIME ONE Stop: 02/28/21 10:24 Last Admin: 02/28/21 10:35 Dose: 4 mg Documented by: - Exam Quality Assessment: DVT Prophylaxis General: Lethargic Lungs: Clear to Auscultation, Normal Respiratory Effort Cardiovascular: Regular Rate, Regular Rhythm, No Murmurs GI/Abdominal Exam: Soft, Non-Tender, No Organomegaly, No Distention Extremities: Non-Tender, No Pedal Edema - Patient Data Lab Results Last 24 hrs: Laboratory Results - last 24 hr 03/01/21 03/01/21 03/01/21 Range/Units 12:52 12:56 13:58 Sodium 131 L (140-148) mmol/L Potassium 3.7 (3.6-5.2) mmol/L Chloride 103 (100-108) mmol/L Carbon Dioxide 17 L (21-32) mmol/L Anion Gap 14.7 H (5.0-14.0) mmol/L BUN 16 (7-18) mg/dL Creatinine 1.9 H (0.6-1.0) mg/dL Est Cr Clr Drug Dosing 27.56 mL/min Estimated GFR (MDRD) 26 L (>60) Glucose 280 H (74-106) mg/dL POC Glucose 252 H 267 H (74-106) mg/dL Calcium 8.5 (8.5-10.1) mg/dL Phosphorus 1.0 L (2.5-4.9) mg/dL Magnesium 1.9 (1.8-2.4) mg/dL Amylase (25-115) U/L Lipase (73-393) U/L 03/01/21 03/01/21 03/01/21 Range/Units 14:51 15:17 16:02 Sodium (140-148) mmol/L Potassium 3.8 (3.6-5.2) mmol/L Chloride (100-108) mmol/L Carbon Dioxide (21-32) mmol/L Anion Gap (5.0-14.0) mmol/L BUN (7-18) mg/dL Creatinine (0.6-1.0) mg/dL Est Cr Clr Drug Dosing mL/min Estimated GFR (MDRD) (>60) Glucose (74-106) mg/dL POC Glucose 280 H 294 H (74-106) mg/dL Calcium (8.5-10.1) mg/dL Phosphorus (2.5-4.9) mg/dL Magnesium (1.8-2.4) mg/dL Amylase (25-115) U/L Lipase (73-393) U/L 03/01/21 03/01/21 03/01/21 Range/Units 16:46 16:56 17:58 Sodium 130 L (140-148) mmol/L Potassium 3.6 (3.6-5.2) mmol/L Chloride 103 (100-108) mmol/L Carbon Dioxide 17 L (21-32) mmol/L Anion Gap 13.6 (5.0-14.0) mmol/L BUN 17 (7-18) mg/dL Creatinine 1.9 H (0.6-1.0) mg/dL Est Cr Clr Drug Dosing 27.56 mL/min Estimated GFR (MDRD) 26 L (>60) Glucose 298 H (74-106) mg/dL POC Glucose 271 H 284 H (74-106) mg/dL Calcium 8.5 (8.5-10.1) mg/dL Phosphorus (2.5-4.9) mg/dL Magnesium (1.8-2.4) mg/dL Amylase (25-115) U/L Lipase (73-393) U/L 03/01/21 03/01/21 03/01/21 Range/Units 18:50 19:05 20:00 Sodium (140-148) mmol/L Potassium 3.9 (3.6-5.2) mmol/L Chloride (100-108) mmol/L Carbon Dioxide (21-32) mmol/L Anion Gap (5.0-14.0) mmol/L BUN (7-18) mg/dL Creatinine (0.6-1.0) mg/dL Est Cr Clr Drug Dosing mL/min Estimated GFR (MDRD) (>60) Glucose (74-106) mg/dL POC Glucose 301 H 322 H (74-106) mg/dL Calcium (8.5-10.1) mg/dL Phosphorus 0.9 L (2.5-4.9) mg/dL Magnesium 1.9 (1.8-2.4) mg/dL Amylase (25-115) U/L Lipase (73-393) U/L 03/01/21 03/01/21 03/01/21 Range/Units 20:48 20:50 21:56 Sodium 130 L (140-148) mmol/L Potassium 3.8 (3.6-5.2) mmol/L Chloride 103 (100-108) mmol/L Carbon Dioxide 17 L (21-32) mmol/L Anion Gap 13.8 (5.0-14.0) mmol/L BUN 17 (7-18) mg/dL Creatinine 1.9 H (0.6-1.0) mg/dL Est Cr Clr Drug Dosing 27.56 mL/min Estimated GFR (MDRD) 26 L (>60) Glucose 323 H (74-106) mg/dL POC Glucose 300 H 300 H (74-106) mg/dL Calcium 8.4 L (8.5-10.1) mg/dL Phosphorus (2.5-4.9) mg/dL Magnesium (1.8-2.4) mg/dL Amylase (25-115) U/L Lipase (73-393) U/L 03/01/21 03/01/21 03/02/21 Range/Units 22:52 22:55 00:14 Sodium (140-148) mmol/L Potassium 3.6 (3.6-5.2) mmol/L Chloride (100-108) mmol/L Carbon Dioxide (21-32) mmol/L Anion Gap (5.0-14.0) mmol/L BUN (7-18) mg/dL Creatinine (0.6-1.0) mg/dL Est Cr Clr Drug Dosing mL/min Estimated GFR (MDRD) (>60) Glucose (74-106) mg/dL POC Glucose 261 H 269 H (74-106) mg/dL Calcium (8.5-10.1) mg/dL Phosphorus (2.5-4.9) mg/dL Magnesium (1.8-2.4) mg/dL Amylase (25-115) U/L Lipase (73-393) U/L 03/02/21 03/02/21 03/02/21 Range/Units 00:55 01:00 01:56 Sodium 131 L (140-148) mmol/L Potassium 3.6 (3.6-5.2) mmol/L Chloride 105 (100-108) mmol/L Carbon Dioxide 16 L (21-32) mmol/L Anion Gap 13.6 (5.0-14.0) mmol/L BUN 16 (7-18) mg/dL Creatinine 1.8 H (0.6-1.0) mg/dL Est Cr Clr Drug Dosing 29.09 mL/min Estimated GFR (MDRD) 28 L (>60) Glucose 292 H (74-106) mg/dL POC Glucose 254 H 271 H (74-106) mg/dL Calcium 8.3 L (8.5-10.1) mg/dL Phosphorus 2.2 L (2.5-4.9) mg/dL Magnesium 1.8 (1.8-2.4) mg/dL Amylase (25-115) U/L Lipase (73-393) U/L 03/02/21 03/02/21 03/02/21 Range/Units 02:55 02:56 04:04 Sodium (140-148) mmol/L Potassium 3.3 L (3.6-5.2) mmol/L Chloride (100-108) mmol/L Carbon Dioxide (21-32) mmol/L Anion Gap (5.0-14.0) mmol/L BUN (7-18) mg/dL Creatinine (0.6-1.0) mg/dL Est Cr Clr Drug Dosing mL/min Estimated GFR (MDRD) (>60) Glucose (74-106) mg/dL POC Glucose 272 H 229 H (74-106) mg/dL Calcium (8.5-10.1) mg/dL Phosphorus (2.5-4.9) mg/dL Magnesium (1.8-2.4) mg/dL Amylase (25-115) U/L Lipase (73-393) U/L 03/02/21 03/02/21 03/02/21 Range/Units 05:00 05:00 05:05 Sodium 132 L (140-148) mmol/L Potassium 3.7 (3.6-5.2) mmol/L Chloride 106 (100-108) mmol/L Carbon Dioxide 15 L (21-32) mmol/L Anion Gap 14.7 H (5.0-14.0) mmol/L BUN 14 (7-18) mg/dL Creatinine 1.7 H (0.6-1.0) mg/dL Est Cr Clr Drug Dosing 30.80 mL/min Estimated GFR (MDRD) 30 L (>60) Glucose 305 H (74-106) mg/dL POC Glucose 276 H (74-106) mg/dL Calcium 8.4 L (8.5-10.1) mg/dL Phosphorus (2.5-4.9) mg/dL Magnesium (1.8-2.4) mg/dL Amylase 82 D (25-115) U/L Lipase 696 H (73-393) U/L 03/02/21 03/02/21 03/02/21 Range/Units 06:00 06:50 06:51 Sodium (140-148) mmol/L Potassium 3.5 L (3.6-5.2) mmol/L Chloride (100-108) mmol/L Carbon Dioxide (21-32) mmol/L Anion Gap (5.0-14.0) mmol/L BUN (7-18) mg/dL Creatinine (0.6-1.0) mg/dL Est Cr Clr Drug Dosing mL/min Estimated GFR (MDRD) (>60) Glucose (74-106) mg/dL POC Glucose 270 H 284 H (74-106) mg/dL Calcium (8.5-10.1) mg/dL Phosphorus 2.0 L (2.5-4.9) mg/dL Magnesium 1.7 L (1.8-2.4) mg/dL Amylase (25-115) U/L Lipase (73-393) U/L 03/02/21 03/02/21 03/02/21 Range/Units 08:08 08:59 09:02 Sodium 133 L (140-148) mmol/L Potassium 3.7 (3.6-5.2) mmol/L Chloride 106 (100-108) mmol/L Carbon Dioxide 17 L (21-32) mmol/L Anion Gap 13.7 (5.0-14.0) mmol/L BUN 13 (7-18) mg/dL Creatinine 1.7 H (0.6-1.0) mg/dL Est Cr Clr Drug Dosing 30.80 mL/min Estimated GFR (MDRD) 30 L (>60) Glucose 294 H (74-106) mg/dL POC Glucose 281 H 267 H (74-106) mg/dL Calcium 8.5 (8.5-10.1) mg/dL Phosphorus (2.5-4.9) mg/dL Magnesium (1.8-2.4) mg/dL Amylase (25-115) U/L Lipase (73-393) U/L 03/02/21 03/02/21 03/02/21 Range/Units 10:00 10:45 10:55 Sodium (140-148) mmol/L Potassium 3.6 (3.6-5.2) mmol/L Chloride (100-108) mmol/L Carbon Dioxide (21-32) mmol/L Anion Gap (5.0-14.0) mmol/L BUN (7-18) mg/dL Creatinine (0.6-1.0) mg/dL Est Cr Clr Drug Dosing mL/min Estimated GFR (MDRD) (>60) Glucose (74-106) mg/dL POC Glucose 246 H 248 H (74-106) mg/dL Calcium (8.5-10.1) mg/dL Phosphorus (2.5-4.9) mg/dL Magnesium (1.8-2.4) mg/dL Amylase (25-115) U/L Lipase (73-393) U/L Result Diagrams: 03/01/21 05:30 03/02/21 10:55 Sepsis Event Note - Evaluation Sepsis Screening Result: No Definite Risk - Focused Exam Vital Signs: Vital Signs Temp Pulse Resp BP BP Pulse Ox 03/02/21 12:00 97.3 F 18 93/47 L 99 03/02/21 11:00 16 133/64 97 03/02/21 10:00 20 123/65 98 03/02/21 09:43 101/66 03/02/21 09:00 16 101/66 97 03/02/21 08:00 97 F 20 134/62 99 03/02/21 06:00 98 20 121/58 L 98 03/02/21 05:00 113 H 17 108/53 L 98 03/02/21 04:00 98 19 108/52 L 98 03/02/21 03:00 97.0 F 107 H 20 113/65 96 03/02/21 02:00 108 H 14 115/55 L 98 03/02/21 01:00 104 H 19 99/51 L 96 - Problem List Review Problem List Initiated/Reviewed/Updated: Yes - My Orders Last 24 Hours: My Active Orders 03/01/21 12:44 Diabetes Education [RC] Click to Edit 03/02/21 09:17 Diabetes Education [RC] Click to Edit 03/02/21 09:30 Insulin Regular in 0.9 % NACL [Myxredlin in NS 100 UNIT/100 ML] 100 ml IV ASDIRECTED 03/02/21 12:00 Potassium Chloride 20 meq Lidocaine 1% [Xylocaine 1%] 2 ml Sodium Chloride 0.9% [Normal Saline] 100 ml IV ONETIME 03/02/21 13:00 BASIC METABOLIC PANEL,BMP [CHEM] Q4H MAGNESIUM [CHEM] Q6H PHOSPHORUS [CHEM] Q6H 03/02/21 15:00 POTASSIUM,K [CHEM] Q2H 03/02/21 17:00 BASIC METABOLIC PANEL,BMP [CHEM] Q4H 03/02/21 19:00 MAGNESIUM [CHEM] Q6H PHOSPHORUS [CHEM] Q6H POTASSIUM,K [CHEM] Q2H 03/02/21 21:00 BASIC METABOLIC PANEL,BMP [CHEM] Q4H 03/02/21 23:00 POTASSIUM,K [CHEM] Q2H 03/03/21 01:00 BASIC METABOLIC PANEL,BMP [CHEM] Q4H MAGNESIUM [CHEM] Q6H PHOSPHORUS [CHEM] Q6H POTASSIUM,K [CHEM] Q2H 03/03/21 03:00 POTASSIUM,K [CHEM] Q2H 03/03/21 05:00 BASIC METABOLIC PANEL,BMP [CHEM] Q4H CBC WITH AUTO DIFF [HEME] Timed POTASSIUM,K [CHEM] Q2H 03/03/21 07:00 MAGNESIUM [CHEM] Q6H PHOSPHORUS [CHEM] Q6H POTASSIUM,K [CHEM] Q2H 03/03/21 09:00 BASIC METABOLIC PANEL,BMP [CHEM] Q4H POTASSIUM,K [CHEM] Q2H 03/03/21 11:00 POTASSIUM,K [CHEM] Q2H - Plan Plan:: ASSESSMENT AND PLAN DIABETIC KETOACIDOSIS-no prior history of ketoacidosis, she has had type 2 diabetes mellitus for some time. Likely secondary to current acute pancreatitis. Ketoacidosis improved but not totally resolved -IV fluids per ketoacidosis protocol -Continuous infusion of IV insulin per protocol -Monitoring and management of electrolytes per protocol ACUTE PANCREATITIS-she does admit to regular daily alcohol use which is likely the underlying cause. Abdominal pain has improved but not resolved -Consistent carbohydrate diet -IV fluids as above -Pain medication as needed ALCOHOL WITHDRAWAL-she has been more confused, occasionally agitated, likely secondary to alcohol withdrawal. and son report intake of at least 8 to 12 ounces per day. -Alcohol withdrawal protocol MAINTENANCE ISSUES -DVT prophylaxis; Lovenox 40 mg subcu daily -GI prophylaxis; not indicated -Paul catheter; not indicated -Nutrition; n.p.o. -Nicotine dependence; not required CODE STATUS-FULL CODE ADMISSION STATUS-patient will be admitted to inpatient status, expect at least a 2 night hospital stay for evaluation and management of problems as outlined above. At the time of this admission I do not reasonably expected evaluation and management of this problem will require more than a 96 hour hospital stay. DISPOSITION-anticipate discharge to home after the hospital stay. PRIMARY CARE PROVIDER-Dr. Portillo
[2021-03-02] MEDS: LORazepam 2 MG/ML SDV IV SCH ×6 (15:52→21:03)
[2021-03-02] MEDS: Enoxaparin 40 MG/0.4 ML Syringe SUBCUT SCH (17:00)
[2021-03-03] MEDS: LORazepam 2 MG/ML SDV IV SCH ×3 (00:58→21:42)
[2021-03-03] MEDS: Potassium Chloride 20 MEQ in Premix Bag 1 BAG IV PRN ×2 (01:55→05:24)
[2021-03-03] MEDS: Dextrose 5%-0.45% NaCl 1,000 ML IV PRN ×2 (02:43→08:56)
[2021-03-03] MEDS: Insulin NPH/Insulin Regular,Human 70-30 100 Units/ML 10 ML Vial SUBCUT SCH ×2 (10:07→20:15)
[2021-03-03] MEDS: Hydrochlorothiazide 25 MG Tab PO SCH (10:08)
[2021-03-03] MEDS: Pantoprazole 40 MG Tab.CR PO SCH (10:08)
[2021-03-03] MEDS: Clopidogrel 75 MG Tab PO SCH (10:09)
[2021-03-03] MEDS: atorvaSTATin 20 MG Tab PO SCH (10:09)
[2021-03-03] MEDS: Lisinopril 20 MG Tab PO SCH (10:09)
[2021-03-03] MEDS: Insulin Regular in 0.9 % NACL 100 ML IV SCH (10:59)
[2021-03-03] MEDS ORDERED: Potassium Chloride 20 MEQ, Lidocaine 1% 2 ML in Sodium Chloride 0.9% 100 ML IV ONE (12:00)
[2021-03-03] MEDS ORDERED: 50% Dextrose in Water 50 ML Syringe IV PRN (14:15)
[2021-03-03] MEDS ORDERED: Glucose Gel 15 GM in 37.5 GM Tube PO PRN (14:15)
--- NOTE | 2021-03-03 14:21 | PCM.PN ---
- General Info Date of Service: 03/03/21 Subjective Update: Ms. Aguirre has been more confused and agitated over the last 24 hours, consistent with alcohol withdrawal. Ketoacidosis appears to have resolved with normalization of her anion gap over the last several checks. Carbon dioxide level remains mildly low. Because of confusion and agitation she is unable to provide meaningful information concerning symptoms or review of systems. - Patient Data Vitals - Most Recent: Last Vital Signs Temp 97.8 F 03/03/21 12:00 Pulse 107 H 03/03/21 06:00 Resp 20 03/03/21 14:00 BP 124/65 03/03/21 14:00 Pulse Ox 99 03/03/21 14:00 Weight - Most Recent: 186 lb I&O - Last 24 Hours: Intake & Output 03/02/21 03/03/21 03/03/21 22:59 06:59 14:59 Intake Total 1977 Balance 1977 Lab Results Last 24 Hours: Laboratory Results - last 24 hr 03/02/21 03/02/21 03/02/21 Range/Units 15:03 15:20 16:12 WBC (4.5-11.0) K/uL RBC (3.30-5.50) M/uL Hgb (12.0-15.0) g/dL Hct (36.0-48.0) % MCV (80-98) fL MCH (27-31) pg MCHC (32-36) % Plt Count (150-400) K/uL Neut % (Auto) (36-66) % Lymph % (Auto) (24-44) % [place] % (Auto) (2-6) % Eos % (Auto) (2-4) % Baso % (Auto) (0-1) % Sodium (140-148) mmol/L Potassium 3.8 (3.6-5.2) mmol/L Chloride (100-108) mmol/L Carbon Dioxide (21-32) mmol/L Anion Gap (5.0-14.0) mmol/L BUN (7-18) mg/dL Creatinine (0.6-1.0) mg/dL Est Cr Clr Drug Dosing mL/min Estimated GFR (MDRD) (>60) Glucose (74-106) mg/dL POC Glucose 208 H 222 H (74-106) mg/dL Calcium (8.5-10.1) mg/dL Phosphorus (2.5-4.9) mg/dL Magnesium (1.8-2.4) mg/dL 03/02/21 03/02/21 03/02/21 Range/Units 17:07 17:11 18:19 WBC (4.5-11.0) K/uL RBC (3.30-5.50) M/uL Hgb (12.0-15.0) g/dL Hct (36.0-48.0) % MCV (80-98) fL MCH (27-31) pg MCHC (32-36) % Plt Count (150-400) K/uL Neut % (Auto) (36-66) % Lymph % (Auto) (24-44) % [place] % (Auto) (2-6) % Eos % (Auto) (2-4) % Baso % (Auto) (0-1) % Sodium 135 L (140-148) mmol/L Potassium 3.9 (3.6-5.2) mmol/L Chloride 107 (100-108) mmol/L Carbon Dioxide 18 L (21-32) mmol/L Anion Gap 13.9 (5.0-14.0) mmol/L BUN 11 (7-18) mg/dL Creatinine 1.6 H (0.6-1.0) mg/dL Est Cr Clr Drug Dosing 32.73 mL/min Estimated GFR (MDRD) 32 L (>60) Glucose 226 H (74-106) mg/dL POC Glucose 211 H 181 H (74-106) mg/dL Calcium 8.8 (8.5-10.1) mg/dL Phosphorus (2.5-4.9) mg/dL Magnesium (1.8-2.4) mg/dL 03/02/21 03/02/21 03/02/21 Range/Units 19:00 19:08 19:57 WBC (4.5-11.0) K/uL RBC (3.30-5.50) M/uL Hgb (12.0-15.0) g/dL Hct (36.0-48.0) % MCV (80-98) fL MCH (27-31) pg MCHC (32-36) % Plt Count (150-400) K/uL Neut % (Auto) (36-66) % Lymph % (Auto) (24-44) % [place] % (Auto) (2-6) % Eos % (Auto) (2-4) % Baso % (Auto) (0-1) % Sodium (140-148) mmol/L Potassium 3.8 (3.6-5.2) mmol/L Chloride (100-108) mmol/L Carbon Dioxide (21-32) mmol/L Anion Gap (5.0-14.0) mmol/L BUN (7-18) mg/dL Creatinine (0.6-1.0) mg/dL Est Cr Clr Drug Dosing mL/min Estimated GFR (MDRD) (>60) Glucose (74-106) mg/dL POC Glucose 185 H 186 H (74-106) mg/dL Calcium (8.5-10.1) mg/dL Phosphorus 1.6 L (2.5-4.9) mg/dL Magnesium 2.0 (1.8-2.4) mg/dL 03/02/21 03/02/21 03/02/21 Range/Units 21:07 21:36 22:01 WBC (4.5-11.0) K/uL RBC (3.30-5.50) M/uL Hgb (12.0-15.0) g/dL Hct (36.0-48.0) % MCV (80-98) fL MCH (27-31) pg MCHC (32-36) % Plt Count (150-400) K/uL Neut % (Auto) (36-66) % Lymph % (Auto) (24-44) % [place] % (Auto) (2-6) % Eos % (Auto) (2-4) % Baso % (Auto) (0-1) % Sodium 135 L (140-148) mmol/L Potassium 4.8 (3.6-5.2) mmol/L Chloride 110 H (100-108) mmol/L Carbon Dioxide 16 L (21-32) mmol/L Anion Gap 13.8 (5.0-14.0) mmol/L BUN 11 (7-18) mg/dL Creatinine 1.5 H (0.6-1.0) mg/dL Est Cr Clr Drug Dosing 34.91 mL/min Estimated GFR (MDRD) 35 L (>60) Glucose 214 H (74-106) mg/dL POC Glucose 190 H 178 H (74-106) mg/dL Calcium 9.1 (8.5-10.1) mg/dL Phosphorus (2.5-4.9) mg/dL Magnesium (1.8-2.4) mg/dL 03/02/21 03/02/21 03/03/21 Range/Units 22:56 23:00 00:00 WBC (4.5-11.0) K/uL RBC (3.30-5.50) M/uL Hgb (12.0-15.0) g/dL Hct (36.0-48.0) % MCV (80-98) fL MCH (27-31) pg MCHC (32-36) % Plt Count (150-400) K/uL Neut % (Auto) (36-66) % Lymph % (Auto) (24-44) % [place] % (Auto) (2-6) % Eos % (Auto) (2-4) % Baso % (Auto) (0-1) % Sodium (140-148) mmol/L Potassium 4.0 (3.6-5.2) mmol/L Chloride (100-108) mmol/L Carbon Dioxide (21-32) mmol/L Anion Gap (5.0-14.0) mmol/L BUN (7-18) mg/dL Creatinine (0.6-1.0) mg/dL Est Cr Clr Drug Dosing mL/min Estimated GFR (MDRD) (>60) Glucose (74-106) mg/dL POC Glucose 176 H 172 H (74-106) mg/dL Calcium (8.5-10.1) mg/dL Phosphorus (2.5-4.9) mg/dL Magnesium (1.8-2.4) mg/dL 03/03/21 03/03/21 03/03/21 Range/Units 01:00 01:02 02:11 WBC (4.5-11.0) K/uL RBC (3.30-5.50) M/uL Hgb (12.0-15.0) g/dL Hct (36.0-48.0) % MCV (80-98) fL MCH (27-31) pg MCHC (32-36) % Plt Count (150-400) K/uL Neut % (Auto) (36-66) % Lymph % (Auto) (24-44) % [place] % (Auto) (2-6) % Eos % (Auto) (2-4) % Baso % (Auto) (0-1) % Sodium 134 L (140-148) mmol/L Potassium 3.8 (3.6-5.2) mmol/L Chloride 108 (100-108) mmol/L Carbon Dioxide 16 L (21-32) mmol/L Anion Gap 13.8 (5.0-14.0) mmol/L BUN 10 (7-18) mg/dL Creatinine 1.5 H (0.6-1.0) mg/dL Est Cr Clr Drug Dosing 34.91 mL/min Estimated GFR (MDRD) 35 L (>60) Glucose 194 H (74-106) mg/dL POC Glucose 178 H 178 H (74-106) mg/dL Calcium 9.1 (8.5-10.1) mg/dL Phosphorus 1.7 L (2.5-4.9) mg/dL Magnesium 1.9 (1.8-2.4) mg/dL 03/03/21 03/03/21 03/03/21 Range/Units 02:59 03:00 04:02 WBC (4.5-11.0) K/uL RBC (3.30-5.50) M/uL Hgb (12.0-15.0) g/dL Hct (36.0-48.0) % MCV (80-98) fL MCH (27-31) pg MCHC (32-36) % Plt Count (150-400) K/uL Neut % (Auto) (36-66) % Lymph % (Auto) (24-44) % [place] % (Auto) (2-6) % Eos % (Auto) (2-4) % Baso % (Auto) (0-1) % Sodium (140-148) mmol/L Potassium 3.7 (3.6-5.2) mmol/L Chloride (100-108) mmol/L Carbon Dioxide (21-32) mmol/L Anion Gap (5.0-14.0) mmol/L BUN (7-18) mg/dL Creatinine (0.6-1.0) mg/dL Est Cr Clr Drug Dosing mL/min Estimated GFR (MDRD) (>60) Glucose (74-106) mg/dL POC Glucose 180 H 186 H (74-106) mg/dL Calcium (8.5-10.1) mg/dL Phosphorus (2.5-4.9) mg/dL Magnesium (1.8-2.4) mg/dL 03/03/21 03/03/21 03/03/21 Range/Units 04:30 04:30 04:48 WBC 8.8 (4.5-11.0) K/uL RBC 3.27 L (3.30-5.50) M/uL Hgb 10.6 L (12.0-15.0) g/dL Hct 32.0 L (36.0-48.0) % MCV 98 (80-98) fL MCH 32 H (27-31) pg MCHC 33 (32-36) % Plt Count 163 (150-400) K/uL Neut % (Auto) 73.1 H (36-66) % Lymph % (Auto) 12.9 L (24-44) % [place] % (Auto) 12.9 H (2-6) % Eos % (Auto) 0.8 L (2-4) % Baso % (Auto) 0.3 (0-1) % Sodium 135 L (140-148) mmol/L Potassium 3.8 (3.6-5.2) mmol/L Chloride 108 (100-108) mmol/L Carbon Dioxide 19 L (21-32) mmol/L Anion Gap 11.8 (5.0-14.0) mmol/L BUN 8 (7-18) mg/dL Creatinine 1.5 H (0.6-1.0) mg/dL Est Cr Clr Drug Dosing 34.91 mL/min Estimated GFR (MDRD) 35 L (>60) Glucose 197 H (74-106) mg/dL POC Glucose 172 H (74-106) mg/dL Calcium 9.3 (8.5-10.1) mg/dL Phosphorus (2.5-4.9) mg/dL Magnesium (1.8-2.4) mg/dL 03/03/21 03/03/21 03/03/21 Range/Units 05:57 06:53 07:00 WBC (4.5-11.0) K/uL RBC (3.30-5.50) M/uL Hgb (12.0-15.0) g/dL Hct (36.0-48.0) % MCV (80-98) fL MCH (27-31) pg MCHC (32-36) % Plt Count (150-400) K/uL Neut % (Auto) (36-66) % Lymph % (Auto) (24-44) % [place] % (Auto) (2-6) % Eos % (Auto) (2-4) % Baso % (Auto) (0-1) % Sodium (140-148) mmol/L Potassium 4.1 (3.6-5.2) mmol/L Chloride (100-108) mmol/L Carbon Dioxide (21-32) mmol/L Anion Gap (5.0-14.0) mmol/L BUN (7-18) mg/dL Creatinine (0.6-1.0) mg/dL Est Cr Clr Drug Dosing mL/min Estimated GFR (MDRD) (>60) Glucose (74-106) mg/dL POC Glucose 189 H 176 H (74-106) mg/dL Calcium (8.5-10.1) mg/dL Phosphorus 2.0 L (2.5-4.9) mg/dL Magnesium 1.8 (1.8-2.4) mg/dL 03/03/21 03/03/21 03/03/21 Range/Units 08:01 08:55 09:00 WBC (4.5-11.0) K/uL RBC (3.30-5.50) M/uL Hgb (12.0-15.0) g/dL Hct (36.0-48.0) % MCV (80-98) fL MCH (27-31) pg MCHC (32-36) % Plt Count (150-400) K/uL Neut % (Auto) (36-66) % Lymph % (Auto) (24-44) % [place] % (Auto) (2-6) % Eos % (Auto) (2-4) % Baso % (Auto) (0-1) % Sodium 135 L (140-148) mmol/L Potassium 4.1 (3.6-5.2) mmol/L Chloride 108 (100-108) mmol/L Carbon Dioxide 19 L (21-32) mmol/L Anion Gap 12.1 (5.0-14.0) mmol/L BUN 8 (7-18) mg/dL Creatinine 1.5 H (0.6-1.0) mg/dL Est Cr Clr Drug Dosing 34.91 mL/min Estimated GFR (MDRD) 35 L (>60) Glucose 218 H (74-106) mg/dL POC Glucose 198 H 206 H (74-106) mg/dL Calcium 8.9 (8.5-10.1) mg/dL Phosphorus (2.5-4.9) mg/dL Magnesium (1.8-2.4) mg/dL 03/03/21 03/03/21 03/03/21 Range/Units 10:03 10:55 11:00 WBC (4.5-11.0) K/uL RBC (3.30-5.50) M/uL Hgb (12.0-15.0) g/dL Hct (36.0-48.0) % MCV (80-98) fL MCH (27-31) pg MCHC (32-36) % Plt Count (150-400) K/uL Neut % (Auto) (36-66) % Lymph % (Auto) (24-44) % [place] % (Auto) (2-6) % Eos % (Auto) (2-4) % Baso % (Auto) (0-1) % Sodium (140-148) mmol/L Potassium 3.7 (3.6-5.2) mmol/L Chloride (100-108) mmol/L Carbon Dioxide (21-32) mmol/L Anion Gap (5.0-14.0) mmol/L BUN (7-18) mg/dL Creatinine (0.6-1.0) mg/dL Est Cr Clr Drug Dosing mL/min Estimated GFR (MDRD) (>60) Glucose (74-106) mg/dL POC Glucose 211 H 184 H (74-106) mg/dL Calcium (8.5-10.1) mg/dL Phosphorus (2.5-4.9) mg/dL Magnesium (1.8-2.4) mg/dL 03/03/21 03/03/21 03/03/21 Range/Units 11:59 13:07 13:56 WBC (4.5-11.0) K/uL RBC (3.30-5.50) M/uL Hgb (12.0-15.0) g/dL Hct (36.0-48.0) % MCV (80-98) fL MCH (27-31) pg MCHC (32-36) % Plt Count (150-400) K/uL Neut % (Auto) (36-66) % Lymph % (Auto) (24-44) % [place] % (Auto) (2-6) % Eos % (Auto) (2-4) % Baso % (Auto) (0-1) % Sodium (140-148) mmol/L Potassium (3.6-5.2) mmol/L Chloride (100-108) mmol/L Carbon Dioxide (21-32) mmol/L Anion Gap (5.0-14.0) mmol/L BUN (7-18) mg/dL Creatinine (0.6-1.0) mg/dL Est Cr Clr Drug Dosing mL/min Estimated GFR (MDRD) (>60) Glucose (74-106) mg/dL POC Glucose 197 H 178 H 190 H (74-106) mg/dL Calcium (8.5-10.1) mg/dL Phosphorus (2.5-4.9) mg/dL Magnesium (1.8-2.4) mg/dL Med Orders - Current: Current Medications Acetaminophen (Acetaminophen 325 Mg Tab) 650 mg PO Q4H PRN PRN Reason: Pain (Mild 1-3)/fever Atorvastatin Calcium (Atorvastatin 20 Mg Tab) 80 mg PO DAILY [facility] Last Admin: 03/03/21 10:09 Dose: Not Given Documented by: Clopidogrel Bisulfate (Clopidogrel 75 Mg Tab) 75 mg PO DAILY [facility] Last Admin: 03/03/21 10:09 Dose: Not Given Documented by: Enoxaparin Sodium (Enoxaparin 40 Mg/0.4 Ml Syringe) 40 mg SUBCUT Q24H [facility] Last Admin: 03/02/21 17:00 Dose: Not Given Documented by: Hydrochlorothiazide (Hydrochlorothiazide 25 Mg Tab) 25 mg PO DAILY [facility] Last Admin: 03/03/21 10:08 Dose: Not Given Documented by: Hydromorphone HCl (Hydromorphone 0.5 Mg/0.5 Ml Syringe) 0.5 mg IVPUSH Q2H PRN PRN Reason: Pain Last Admin: 02/28/21 17:51 Dose: 0.5 mg Documented by: Insulin Human Isoph/Insulin Regular (Insulin Nph/Insulin Regular,Human 70-30 100 Units/Ml 10 Ml Vial) 15 units SUBCUT BID [facility] Last Admin: 03/03/21 10:07 Dose: 15 units Documented by: Lisinopril (Lisinopril 20 Mg Tab) 20 mg PO DAILY [facility] Last Admin: 03/03/21 10:09 Dose: Not Given Documented by: Lorazepam (Lorazepam 2 Mg/Ml Sdv) 0 mg IV ASDIRECTED [facility]; Protocol Last Admin: 03/03/21 00:58 Dose: 2 mg Documented by: Lorazepam (Lorazepam 1 Mg Tab) 0 mg PO ASDIRECTED [facility]; Protocol Last Admin: 03/01/21 22:59 Dose: 1 mg Documented by: Ondansetron HCl (Ondansetron 4 Mg/2 Ml Sdv) 4 mg IV Q4H PRN PRN Reason: Nausea/Vomiting Pantoprazole Sodium (Pantoprazole 40 Mg Tab.Cr) 40 mg PO ACBREAKFAST [facility] Last Admin: 03/03/21 10:08 Dose: Not Given Documented by: Polyethylene Glycol (Polyethylene Glycol 3350 Powder 17 Gm Packet) 17 gm PO DAILY PRN PRN Reason: Constipation Sodium Chloride (Sodium Chloride 0.9% 10 Ml Syringe) 10 ml FLUSH ASDIRECTED PRN PRN Reason: Keep Vein Open Discontinued Medications Dextrose/Water (50% Dextrose In Water 50 Ml Syringe) 50 ml IVPUSH ASDIRECTED PRN PRN Reason: Hypoglycemia Glucagon (Glucagon,Human Recombinant 1 Mg Vial) 1 mg IM ASDIRECTED PRN PRN Reason: Hypoglycemia Hydromorphone HCl (Hydromorphone 0.5 Mg/0.5 Ml Syringe) 0.5 mg IVPUSH ONETIME ONE Stop: 02/28/21 10:24 Last Admin: 02/28/21 10:40 Dose: 0.5 mg Documented by: Hydromorphone HCl (Hydromorphone 0.5 Mg/0.5 Ml Syringe) 0.5 mg IVPUSH ONETIME ONE Stop: 02/28/21 12:11 Last Admin: 02/28/21 14:12 Dose: 0.5 mg Documented by: Sodium Chloride (Normal Saline) 1,000 mls @ 999 mls/hr IV ASDIRECTED [facility] Last Admin: 02/28/21 10:29 Dose: 999 mls/hr Documented by: Sodium Chloride (Normal Saline) 1,000 mls @ 999 mls/hr IV ASDIRECTED [facility] Last Admin: 02/28/21 11:41 Dose: 999 mls/hr Documented by: Sodium Chloride (Normal Saline) 1,000 mls @ 500 mls/hr IV ASDIRECTED [facility] Insulin Regular in 0.9 % NACL (Myxredlin In Ns 100 Unit/100 Ml) 100 unit in 100 mls @ 8.301 mls/hr IV ASDIRECTED [facility]; Protocol Last Infusion: 03/01/21 05:58 Dose: 0.05 units/kg/hr, 4 mls/hr Documented by: Sodium Chloride (Normal Saline) 2,000 mls @ 500 mls/hr IV .CONTINUOUS PRN PRN Reason: Blood Glucose Last Admin: 02/28/21 14:24 Dose: 500 mls/hr Documented by: Dextrose/Sodium Chloride (Dextrose 5%-1/2 Ns) 1,000 mls @ 150 mls/hr IV .CONTINUOUS PRN PRN Reason: Blood Glucose Last Admin: 03/03/21 08:56 Dose: 150 mls/hr Documented by: Potassium Chloride 20 meq/ (Premix) 100 mls @ 50 mls/hr IV ASDIRECTED PRN PRN Reason: LOW POTASSIUM Last Admin: 03/03/21 05:24 Dose: 50 mls/hr Documented by: Potassium Chloride 20 meq/ (Premix) 100 mls @ 50 mls/hr IV Q2H PRN PRN Reason: Hypokalemia Potassium Chloride 20 meq/ (Premix) 100 mls @ 50 mls/hr IV Q2H PRN PRN Reason: Hypokalemia Magnesium Sulfate (Magnesium Sulfate In Water 2 Gm/50 Ml) 50 mls @ 25 mls/hr IV ONETIME PRN PRN Reason: low magnesium Last Admin: 02/28/21 20:04 Dose: 25 mls/hr Documented by: Sodium Phosphate 60 mmole/ (Sodium Chloride) 270 mls @ 62.5 mls/hr IV ONETIME PRN PRN Reason: Low phophorus Insulin Regular in 0.9 % NACL (Myxredlin In Ns 100 Unit/100 Ml) 100 mls @ 8.301 mls/hr IV ASDIRECTED [facility]; Protocol Last Infusion: 03/02/21 12:59 Dose: 0.07 units/kg/hr, 6 mls/hr Documented by: Potassium Chloride 20 meq/Lidocaine HCl 2 ml/ Sodium Chloride 112 mls @ 56 mls/hr IV ONETIME ONE Stop: 03/01/21 10:59 Last Admin: 03/01/21 08:50 Dose: 56 mls/hr Documented by: Potassium Chloride 20 meq/Lidocaine HCl 2 ml/ Sodium Chloride 112 mls @ 56 mls/hr IV ONETIME ONE Stop: 03/01/21 13:59 Last Admin: 03/01/21 12:01 Dose: 56 mls/hr Documented by: Potassium Chloride 20 meq/Lidocaine HCl 2 ml/ Sodium Chloride 112 mls @ 56 mls/hr IV ONETIME ONE Stop: 03/01/21 17:59 Last Admin: 03/01/21 16:03 Dose: 56 mls/hr Documented by: Potassium Phosphate (Potassium Phos In Ns 15 Mmol/250 Ml) 250 mls @ 83.333 mls/hr IV ONETIME ONE Stop: 03/01/21 22:40 Last Admin: 03/01/21 20:03 Dose: 83.333 mls/hr Documented by: Potassium Phosphate (Potassium Phos In Ns 15 Mmol/250 Ml) 250 mls @ 83.333 mls/hr IV ONETIME ONE Stop: 03/02/21 01:59 Last Admin: 03/01/21 23:07 Dose: 83.333 mls/hr Documented by: Insulin Regular in 0.9 % NACL (Myxredlin In Ns 100 Unit/100 Ml) 100 mls @ 8.46 mls/hr IV ASDIRECTED [facility]; Protocol Last Infusion: 03/03/21 13:57 Dose: 0.06 units/kg/hr, 5 mls/hr Documented by: Potassium Chloride 20 meq/Lidocaine HCl 2 ml/ Sodium Chloride 112 mls @ 56 mls/hr IV ONETIME ONE Stop: 03/02/21 11:59 Last Admin: 03/02/21 09:43 Dose: 56 mls/hr Documented by: Magnesium Sulfate 2 gm/ Premix 50 mls @ 25 mls/hr IV ONETIME ONE Stop: 03/02/21 11:59 Last Admin: 03/02/21 09:44 Dose: 25 mls/hr Documented by: Potassium Chloride 20 meq/Lidocaine HCl 2 ml/ Sodium Chloride 112 mls @ 56 mls/hr IV ONETIME ONE Stop: 03/02/21 13:59 Last Admin: 03/02/21 11:47 Dose: 56 mls/hr Documented by: Potassium Chloride 20 meq/Lidocaine HCl 2 ml/ Sodium Chloride 112 mls @ 56 mls/hr IV ONETIME ONE Stop: 03/02/21 16:29 Last Admin: 03/02/21 14:34 Dose: 56 mls/hr Documented by: Potassium Chloride 20 meq/Lidocaine HCl 2 ml/ Sodium Chloride 112 mls @ 56 mls/hr IV ONETIME ONE Stop: 03/03/21 13:59 Last Admin: 03/03/21 11:34 Dose: 56 mls/hr Documented by: Insulin Human Regular (Insulin Regular, Human 100 Units/Ml 3 Ml Vial) 3 unit IVPUSH ONETIME ONE Stop: 02/28/21 11:13 Last Admin: 02/28/21 11:53 Dose: 3 units Documented by: Insulin Human Regular (Insulin Regular, Human 100 Units/Ml 3 Ml Vial) 3 unit SUBCUT ONETIME ONE Stop: 02/28/21 11:14 Last Admin: 02/28/21 11:54 Dose: 3 unit Documented by: Lidocaine HCl (Lidocaine 1% 5 Ml Sdv) 2 ml INJECT ONETIME ONE Stop: 02/28/21 20:10 Last Admin: 02/28/21 20:28 Dose: 2 ml Documented by: Lidocaine HCl (Lidocaine 1% 5 Ml Sdv) Confirm Administered Dose 5 ml .ROUTE .STK-MED ONE Stop: 02/28/21 20:16 Last Admin: 02/28/21 20:28 Dose: Not Given Documented by: Lidocaine HCl (Lidocaine 1% 5 Ml Sdv) 2 ml INJECT ONETIME ONE Stop: 03/01/21 03:49 Last Admin: 03/01/21 03:53 Dose: 2 ml Documented by: Lidocaine HCl (Lidocaine 1% 5 Ml Sdv) Confirm Administered Dose 5 ml .ROUTE .STK-MED ONE Stop: 03/01/21 03:50 Last Admin: 03/01/21 03:53 Dose: Not Given Documented by: Lidocaine HCl (Lidocaine 1% 5 Ml Sdv) 2 ml INJECT ONETIME ONE Stop: 03/02/21 05:52 Last Admin: 03/02/21 06:03 Dose: 2 ml Documented by: Lidocaine HCl (Lidocaine 1% 5 Ml Sdv) 2 ml INJECT ONETIME ONE Stop: 03/02/21 18:09 Last Admin: 03/02/21 18:34 Dose: 2 ml Documented by: Lidocaine HCl (Lidocaine 1% 5 Ml Sdv) 2 ml INJECT ONETIME ONE Stop: 03/03/21 01:53 Last Admin: 03/03/21 01:54 Dose: 2 ml Documented by: Lidocaine HCl (Lidocaine 1% 5 Ml Sdv) Confirm Administered Dose 5 ml .ROUTE .STK-MED ONE Stop: 03/03/21 01:53 Last Admin: 03/03/21 01:56 Dose: Not Given Documented by: Lidocaine HCl (Lidocaine 1% 5 Ml Sdv) 2 ml INJECT ONETIME ONE Stop: 03/03/21 05:13 Last Admin: 03/03/21 05:27 Dose: 2 ml Documented by: Ondansetron HCl (Ondansetron 4 Mg/2 Ml Sdv) 4 mg IVPUSH ONETIME ONE Stop: 02/28/21 10:24 Last Admin: 02/28/21 10:35 Dose: 4 mg Documented by: Potassium Chloride (Potassium Chloride 10% 20 Meq/15 Ml Soln 15 Ml Ud Cup) 20 meq PO NOW PRN PRN Reason: Hypokalemia Last Admin: 03/01/21 17:24 Dose: 20 meq Documented by: Potassium Chloride (Potassium Chloride 10% 20 Meq/15 Ml Soln 15 Ml Ud Cup) 40 meq PO NOW PRN PRN Reason: Hypokalemia Last Admin: 03/02/21 03:49 Dose: 40 meq Documented by: Potassium Chloride (Potassium Chloride 10% 20 Meq/15 Ml Soln 15 Ml Ud Cup) 40 meq PO Q2H PRN PRN Reason: Hypokalemia - Exam Quality Assessment: DVT Prophylaxis General: Sedated, Lethargic, Other (Confused) Lungs: Clear to Auscultation, Normal Respiratory Effort Cardiovascular: Regular Rate, Regular Rhythm, No Murmurs GI/Abdominal Exam: Soft, Non-Tender, No Organomegaly, No Distention Extremities: Non-Tender, No Pedal Edema - Patient Data Lab Results Last 24 hrs: Laboratory Results - last 24 hr 03/02/21 03/02/21 03/02/21 Range/Units 15:03 15:20 16:12 WBC (4.5-11.0) K/uL RBC (3.30-5.50) M/uL Hgb (12.0-15.0) g/dL Hct (36.0-48.0) % MCV (80-98) fL MCH (27-31) pg MCHC (32-36) % Plt Count (150-400) K/uL Neut % (Auto) (36-66) % Lymph % (Auto) (24-44) % [place] % (Auto) (2-6) % Eos % (Auto) (2-4) % Baso % (Auto) (0-1) % Sodium (140-148) mmol/L Potassium 3.8 (3.6-5.2) mmol/L Chloride (100-108) mmol/L Carbon Dioxide (21-32) mmol/L Anion Gap (5.0-14.0) mmol/L BUN (7-18) mg/dL Creatinine (0.6-1.0) mg/dL Est Cr Clr Drug Dosing mL/min Estimated GFR (MDRD) (>60) Glucose (74-106) mg/dL POC Glucose 208 H 222 H (74-106) mg/dL Calcium (8.5-10.1) mg/dL Phosphorus (2.5-4.9) mg/dL Magnesium (1.8-2.4) mg/dL 03/02/21 03/02/21 03/02/21 Range/Units 17:07 17:11 18:19 WBC (4.5-11.0) K/uL RBC (3.30-5.50) M/uL Hgb (12.0-15.0) g/dL Hct (36.0-48.0) % MCV (80-98) fL MCH (27-31) pg MCHC (32-36) % Plt Count (150-400) K/uL Neut % (Auto) (36-66) % Lymph % (Auto) (24-44) % [place] % (Auto) (2-6) % Eos % (Auto) (2-4) % Baso % (Auto) (0-1) % Sodium 135 L (140-148) mmol/L Potassium 3.9 (3.6-5.2) mmol/L Chloride 107 (100-108) mmol/L Carbon Dioxide 18 L (21-32) mmol/L Anion Gap 13.9 (5.0-14.0) mmol/L BUN 11 (7-18) mg/dL Creatinine 1.6 H (0.6-1.0) mg/dL Est Cr Clr Drug Dosing 32.73 mL/min Estimated GFR (MDRD) 32 L (>60) Glucose 226 H (74-106) mg/dL POC Glucose 211 H 181 H (74-106) mg/dL Calcium 8.8 (8.5-10.1) mg/dL Phosphorus (2.5-4.9) mg/dL Magnesium (1.8-2.4) mg/dL 03/02/21 03/02/21 03/02/21 Range/Units 19:00 19:08 19:57 WBC (4.5-11.0) K/uL RBC (3.30-5.50) M/uL Hgb (12.0-15.0) g/dL Hct (36.0-48.0) % MCV (80-98) fL MCH (27-31) pg MCHC (32-36) % Plt Count (150-400) K/uL Neut % (Auto) (36-66) % Lymph % (Auto) (24-44) % [place] % (Auto) (2-6) % Eos % (Auto) (2-4) % Baso % (Auto) (0-1) % Sodium (140-148) mmol/L Potassium 3.8 (3.6-5.2) mmol/L Chloride (100-108) mmol/L Carbon Dioxide (21-32) mmol/L Anion Gap (5.0-14.0) mmol/L BUN (7-18) mg/dL Creatinine (0.6-1.0) mg/dL Est Cr Clr Drug Dosing mL/min Estimated GFR (MDRD) (>60) Glucose (74-106) mg/dL POC Glucose 185 H 186 H (74-106) mg/dL Calcium (8.5-10.1) mg/dL Phosphorus 1.6 L (2.5-4.9) mg/dL Magnesium 2.0 (1.8-2.4) mg/dL 1203/02/21 03/02/21 Range/Units 21:07 21:36 22:01 WBC (4.5-11.0) K/uL RBC (3.30-5.50) M/uL Hgb (12.0-15.0) g/dL Hct (36.0-48.0) % MCV (80-98) fL MCH (27-31) pg MCHC (32-36) % Plt Count (150-400) K/uL Neut % (Auto) (36-66) % Lymph % (Auto) (24-44) % [place] % (Auto) (2-6) % Eos % (Auto) (2-4) % Baso % (Auto) (0-1) % Sodium 135 L (140-148) mmol/L Potassium 4.8 (3.6-5.2) mmol/L Chloride 110 H (100-108) mmol/L Carbon Dioxide 16 L (21-32) mmol/L Anion Gap 13.8 (5.0-14.0) mmol/L BUN 11 (7-18) mg/dL Creatinine 1.5 H (0.6-1.0) mg/dL Est Cr Clr Drug Dosing 34.91 mL/min Estimated GFR (MDRD) 35 L (>60) Glucose 214 H (74-106) mg/dL POC Glucose 190 H 178 H (74-106) mg/dL Calcium 9.1 (8.5-10.1) mg/dL Phosphorus (2.5-4.9) mg/dL Magnesium (1.8-2.4) mg/dL 03/02/21 03/02/21 03/03/21 Range/Units 22:56 23:00 00:00 WBC (4.5-11.0) K/uL RBC (3.30-5.50) M/uL Hgb (12.0-15.0) g/dL Hct (36.0-48.0) % MCV (80-98) fL MCH (27-31) pg MCHC (32-36) % Plt Count (150-400) K/uL Neut % (Auto) (36-66) % Lymph % (Auto) (24-44) % [place] % (Auto) (2-6) % Eos % (Auto) (2-4) % Baso % (Auto) (0-1) % Sodium (140-148) mmol/L Potassium 4.0 (3.6-5.2) mmol/L Chloride (100-108) mmol/L Carbon Dioxide (21-32) mmol/L Anion Gap (5.0-14.0) mmol/L BUN (7-18) mg/dL Creatinine (0.6-1.0) mg/dL Est Cr Clr Drug Dosing mL/min Estimated GFR (MDRD) (>60) Glucose (74-106) mg/dL POC Glucose 176 H 172 H (74-106) mg/dL Calcium (8.5-10.1) mg/dL Phosphorus (2.5-4.9) mg/dL Magnesium (1.8-2.4) mg/dL 03/03/21 03/03/21 03/03/21 Range/Units 01:00 01:02 02:11 WBC (4.5-11.0) K/uL RBC (3.30-5.50) M/uL Hgb (12.0-15.0) g/dL Hct (36.0-48.0) % MCV (80-98) fL MCH (27-31) pg MCHC (32-36) % Plt Count (150-400) K/uL Neut % (Auto) (36-66) % Lymph % (Auto) (24-44) % [place] % (Auto) (2-6) % Eos % (Auto) (2-4) % Baso % (Auto) (0-1) % Sodium 134 L (140-148) mmol/L Potassium 3.8 (3.6-5.2) mmol/L Chloride 108 (100-108) mmol/L Carbon Dioxide 16 L (21-32) mmol/L Anion Gap 13.8 (5.0-14.0) mmol/L BUN 10 (7-18) mg/dL Creatinine 1.5 H (0.6-1.0) mg/dL Est Cr Clr Drug Dosing 34.91 mL/min Estimated GFR (MDRD) 35 L (>60) Glucose 194 H (74-106) mg/dL POC Glucose 178 H 178 H (74-106) mg/dL Calcium 9.1 (8.5-10.1) mg/dL Phosphorus 1.7 L (2.5-4.9) mg/dL Magnesium 1.9 (1.8-2.4) mg/dL 03/03/21 03/03/21 03/03/21 Range/Units 02:59 03:00 04:02 WBC (4.5-11.0) K/uL RBC (3.30-5.50) M/uL Hgb (12.0-15.0) g/dL Hct (36.0-48.0) % MCV (80-98) fL MCH (27-31) pg MCHC (32-36) % Plt Count (150-400) K/uL Neut % (Auto) (36-66) % Lymph % (Auto) (24-44) % [place] % (Auto) (2-6) % Eos % (Auto) (2-4) % Baso % (Auto) (0-1) % Sodium (140-148) mmol/L Potassium 3.7 (3.6-5.2) mmol/L Chloride (100-108) mmol/L Carbon Dioxide (21-32) mmol/L Anion Gap (5.0-14.0) mmol/L BUN (7-18) mg/dL Creatinine (0.6-1.0) mg/dL Est Cr Clr Drug Dosing mL/min Estimated GFR (MDRD) (>60) Glucose (74-106) mg/dL POC Glucose 180 H 186 H (74-106) mg/dL Calcium (8.5-10.1) mg/dL Phosphorus (2.5-4.9) mg/dL Magnesium (1.8-2.4) mg/dL 03/03/21 03/03/21 03/03/21 Range/Units 04:30 04:30 04:48 WBC 8.8 (4.5-11.0) K/uL RBC 3.27 L (3.30-5.50) M/uL Hgb 10.6 L (12.0-15.0) g/dL Hct 32.0 L (36.0-48.0) % MCV 98 (80-98) fL MCH 32 H (27-31) pg MCHC 33 (32-36) % Plt Count 163 (150-400) K/uL Neut % (Auto) 73.1 H (36-66) % Lymph % (Auto) 12.9 L (24-44) % [place] % (Auto) 12.9 H (2-6) % Eos % (Auto) 0.8 L (2-4) % Baso % (Auto) 0.3 (0-1) % Sodium 135 L (140-148) mmol/L Potassium 3.8 (3.6-5.2) mmol/L Chloride 108 (100-108) mmol/L Carbon Dioxide 19 L (21-32) mmol/L Anion Gap 11.8 (5.0-14.0) mmol/L BUN 8 (7-18) mg/dL Creatinine 1.5 H (0.6-1.0) mg/dL Est Cr Clr Drug Dosing 34.91 mL/min Estimated GFR (MDRD) 35 L (>60) Glucose 197 H (74-106) mg/dL POC Glucose 172 H (74-106) mg/dL Calcium 9.3 (8.5-10.1) mg/dL Phosphorus (2.5-4.9) mg/dL Magnesium (1.8-2.4) mg/dL 03/03/21 03/03/21 03/03/21 Range/Units 05:57 06:53 07:00 WBC (4.5-11.0) K/uL RBC (3.30-5.50) M/uL Hgb (12.0-15.0) g/dL Hct (36.0-48.0) % MCV (80-98) fL MCH (27-31) pg MCHC (32-36) % Plt Count (150-400) K/uL Neut % (Auto) (36-66) % Lymph % (Auto) (24-44) % [place] % (Auto) (2-6) % Eos % (Auto) (2-4) % Baso % (Auto) (0-1) % Sodium (140-148) mmol/L Potassium 4.1 (3.6-5.2) mmol/L Chloride (100-108) mmol/L Carbon Dioxide (21-32) mmol/L Anion Gap (5.0-14.0) mmol/L BUN (7-18) mg/dL Creatinine (0.6-1.0) mg/dL Est Cr Clr Drug Dosing mL/min Estimated GFR (MDRD) (>60) Glucose (74-106) mg/dL POC Glucose 189 H 176 H (74-106) mg/dL Calcium (8.5-10.1) mg/dL Phosphorus 2.0 L (2.5-4.9) mg/dL Magnesium 1.8 (1.8-2.4) mg/dL 03/03/21 03/03/21 03/03/21 Range/Units 08:01 08:55 09:00 WBC (4.5-11.0) K/uL RBC (3.30-5.50) M/uL Hgb (12.0-15.0) g/dL Hct (36.0-48.0) % MCV (80-98) fL MCH (27-31) pg MCHC (32-36) % Plt Count (150-400) K/uL Neut % (Auto) (36-66) % Lymph % (Auto) (24-44) % [place] % (Auto) (2-6) % Eos % (Auto) (2-4) % Baso % (Auto) (0-1) % Sodium 135 L (140-148) mmol/L Potassium 4.1 (3.6-5.2) mmol/L Chloride 108 (100-108) mmol/L Carbon Dioxide 19 L (21-32) mmol/L Anion Gap 12.1 (5.0-14.0) mmol/L BUN 8 (7-18) mg/dL Creatinine 1.5 H (0.6-1.0) mg/dL Est Cr Clr Drug Dosing 34.91 mL/min Estimated GFR (MDRD) 35 L (>60) Glucose 218 H (74-106) mg/dL POC Glucose 198 H 206 H (74-106) mg/dL Calcium 8.9 (8.5-10.1) mg/dL Phosphorus (2.5-4.9) mg/dL Magnesium (1.8-2.4) mg/dL 03/03/21 03/03/21 03/03/21 Range/Units 10:03 10:55 11:00 WBC (4.5-11.0) K/uL RBC (3.30-5.50) M/uL Hgb (12.0-15.0) g/dL Hct (36.0-48.0) % MCV (80-98) fL MCH (27-31) pg MCHC (32-36) % Plt Count (150-400) K/uL Neut % (Auto) (36-66) % Lymph % (Auto) (24-44) % [place] % (Auto) (2-6) % Eos % (Auto) (2-4) % Baso % (Auto) (0-1) % Sodium (140-148) mmol/L Potassium 3.7 (3.6-5.2) mmol/L Chloride (100-108) mmol/L Carbon Dioxide (21-32) mmol/L Anion Gap (5.0-14.0) mmol/L BUN (7-18) mg/dL Creatinine (0.6-1.0) mg/dL Est Cr Clr Drug Dosing mL/min Estimated GFR (MDRD) (>60) Glucose (74-106) mg/dL POC Glucose 211 H 184 H (74-106) mg/dL Calcium (8.5-10.1) mg/dL Phosphorus (2.5-4.9) mg/dL Magnesium (1.8-2.4) mg/dL 03/03/21 03/03/21 03/03/21 Range/Units 11:59 13:07 13:56 WBC (4.5-11.0) K/uL RBC (3.30-5.50) M/uL Hgb (12.0-15.0) g/dL Hct (36.0-48.0) % MCV (80-98) fL MCH (27-31) pg MCHC (32-36) % Plt Count (150-400) K/uL Neut % (Auto) (36-66) % Lymph % (Auto) (24-44) % [place] % (Auto) (2-6) % Eos % (Auto) (2-4) % Baso % (Auto) (0-1) % Sodium (140-148) mmol/L Potassium (3.6-5.2) mmol/L Chloride (100-108) mmol/L Carbon Dioxide (21-32) mmol/L Anion Gap (5.0-14.0) mmol/L BUN (7-18) mg/dL Creatinine (0.6-1.0) mg/dL Est Cr Clr Drug Dosing mL/min Estimated GFR (MDRD) (>60) Glucose (74-106) mg/dL POC Glucose 197 H 178 H 190 H (74-106) mg/dL Calcium (8.5-10.1) mg/dL Phosphorus (2.5-4.9) mg/dL Magnesium (1.8-2.4) mg/dL Result Diagrams: 03/03/21 04:30 03/03/21 11:00 Sepsis Event Note - Evaluation Sepsis Screening Result: No Definite Risk - Focused Exam Vital Signs: Vital Signs Temp Pulse Resp BP Pulse Ox 03/03/21 14:00 20 124/65 99 03/03/21 12:00 97.8 F 16 132/71 99 03/03/21 10:00 16 143/62 H 98 03/03/21 08:00 97 F 16 142/62 H 99 03/03/21 06:00 107 H 22 H 130/67 98 03/03/21 04:00 95.9 F L 109 H 18 136/65 98 - Problem List Review Problem List Initiated/Reviewed/Updated: Yes - My Orders Last 24 Hours: My Active Orders 03/03/21 14:14 Convert IV to Saline Lock [OM.PC] Routine 03/03/21 14:15 Communication Order [RC] STAT Diabetes Education [RC] Click to Edit Notify Provider [RC] PRN Dextrose 50% in Water 50 ml IV ONETIME PRN Dextrose [Glutose 15] 15 gm PO ONETIME PRN 03/03/21 16:30 GLUCOSE POC LAB TO COLLECT JPM [POC] QIDACANDBED 03/03/21 17:00 BASIC METABOLIC PANEL,BMP [CHEM] Stat Insulin Lispro [HumaLOG] See Protocol SUBCUT QIDACANDBED 03/03/21 21:00 GLUCOSE POC LAB TO COLLECT JPM [POC] QIDACANDBED 03/04/21 05:00 BASIC METABOLIC PANEL,BMP [CHEM] Timed CBC WITH AUTO DIFF [HEME] Timed 03/04/21 07:30 GLUCOSE POC LAB TO COLLECT JPM [POC] QIDACANDBED 03/04/21 11:30 GLUCOSE POC LAB TO COLLECT JPM [POC] QIDACANDBED 03/04/21 16:30 GLUCOSE POC LAB TO COLLECT JPM [POC] QIDACANDBED 03/04/21 21:00 GLUCOSE POC LAB TO COLLECT JPM [POC] QIDACANDBED 03/05/21 07:30 GLUCOSE POC LAB TO COLLECT JPM [POC] QIDACANDBED 03/05/21 11:30 GLUCOSE POC LAB TO COLLECT JPM [POC] QIDACANDBED 03/05/21 16:30 GLUCOSE POC LAB TO COLLECT JPM [POC] QIDACANDBED 03/05/21 21:00 GLUCOSE POC LAB TO COLLECT JPM [POC] QIDACANDBED 03/06/21 07:30 GLUCOSE POC LAB TO COLLECT JPM [POC] QIDACANDBED 03/06/21 11:30 GLUCOSE POC LAB TO COLLECT JPM [POC] QIDACANDBED 03/06/21 16:30 GLUCOSE POC LAB TO COLLECT JPM [POC] QIDACANDBED 03/06/21 21:00 GLUCOSE POC LAB TO COLLECT JPM [POC] QIDACANDBED 03/07/21 07:30 GLUCOSE POC LAB TO COLLECT JPM [POC] QIDACANDBED 03/07/21 11:30 GLUCOSE POC LAB TO COLLECT JPM [POC] QIDACANDBED 03/07/21 16:30 GLUCOSE POC LAB TO COLLECT JPM [POC] QIDACANDBED 03/07/21 21:00 GLUCOSE POC LAB TO COLLECT JPM [POC] QIDACANDBED 03/08/21 07:30 GLUCOSE POC LAB TO COLLECT JPM [POC] QIDACANDBED 03/08/21 11:30 GLUCOSE POC LAB TO COLLECT JPM [POC] QIDACANDBED - Plan Plan:: ASSESSMENT AND PLAN DIABETIC KETOACIDOSIS-no prior history of ketoacidosis, she has had type 2 diabetes mellitus for some time. Likely secondary to current acute pancreatitis. Proved since yesterday, anion gap has been normal over the last few checks. Carbon dioxide level almost normal -Discontinue IV insulin -Saline lock IV ACUTE PANCREATITIS-she does admit to regular daily alcohol use which is likely the underlying cause. Much less abdominal tenderness today on exam -Consistent carbohydrate diet -Saline lock IV -Pain medication as needed TYPE 2 DIABETES MELLITUS -4 times daily glucometers -70/30 insulin 15 units subcu twice daily -Moderate dose sliding scale insulin ALCOHOL WITHDRAWAL-she has been more confused, occasionally agitated, likely secondary to alcohol withdrawal. and son report intake of at least 8 to 12 ounces per day. -Alcohol withdrawal protocol MAINTENANCE ISSUES -DVT prophylaxis; Lovenox 40 mg subcu daily -GI prophylaxis; not indicated -Paul catheter; not indicated -Nutrition; n.p.o. -Nicotine dependence; not required CODE STATUS-FULL CODE ADMISSION STATUS-patient will be admitted to inpatient status, expect at least a 2 night hospital stay for evaluation and management of problems as outlined above. At the time of this admission I do not reasonably expected evaluation and management of this problem will require more than a 96 hour hospital stay. DISPOSITION-anticipate discharge to home after the hospital stay. PRIMARY CARE PROVIDER-Dr. Portillo
[2021-03-03] MEDS: Insulin Lispro 100 Unit/ML 3 ML KwikPen SUBCUT SCH ×2 (17:09→20:15)
[2021-03-03] MEDS: Enoxaparin 40 MG/0.4 ML Syringe SUBCUT SCH (17:12)
[2021-03-03] MEDS: HYDROmorphone 0.5 MG/0.5 ML Syringe IVPUSH PRN ×2 (19:23→23:46)
[2021-03-04] MEDS: LORazepam 2 MG/ML SDV IV SCH ×2 (03:57→10:13)
[2021-03-04] MEDS: HYDROmorphone 0.5 MG/0.5 ML Syringe IVPUSH PRN ×2 (05:48→19:48)
[2021-03-04] MEDS: Insulin Lispro 100 Unit/ML 3 ML KwikPen SUBCUT SCH ×4 (07:45→20:00)
[2021-03-04] MEDS: Insulin NPH/Insulin Regular,Human 70-30 100 Units/ML 10 ML Vial SUBCUT SCH ×2 (09:45→21:08)
--- NOTE | 2021-03-04 09:51 | PCM.PN ---
- General Info Date of Service: 03/04/21 Subjective Update: No acute events overnight. Patient is still somewhat confused and has been receiving lorazepam for alcohol withdrawal. She is able to tell me that she feels okay today. She does not report any abdominal pain or nausea. She does not feel short of breath. She really did not reply to any questions beyond those 2. Lipase is normal. Blood sugars moderately elevated. Ketoacidosis has resolved. Functional Status: Reports: Pain Controlled, Tolerating Diet - Review of Systems General: Reports: Weakness Gastrointestinal: Denies: Abdominal Pain Neurological: Reports: Confusion - Patient Data Vitals - Most Recent: Last Vital Signs Temp 36.1 C 03/04/21 07:49 Pulse 101 H 03/04/21 06:00 Resp 16 03/04/21 07:49 BP 93/58 L 03/04/21 07:49 Pulse Ox 100 03/04/21 07:49 Weight - Most Recent: 84.368 kg I&O - Last 24 Hours: Intake & Output 03/03/21 03/04/21 03/04/21 22:59 06:59 14:59 Intake Total 120 Balance 120 Lab Results Last 24 Hours: Laboratory Results - last 24 hr 03/03/21 03/03/21 03/03/21 Range/Units 10:03 10:55 11:00 WBC (4.5-11.0) K/uL RBC (3.30-5.50) M/uL Hgb (12.0-15.0) g/dL Hct (36.0-48.0) % MCV (80-98) fL MCH (27-31) pg MCHC (32-36) % Plt Count (150-400) K/uL Neut % (Auto) (36-66) % Lymph % (Auto) (24-44) % [place] % (Auto) (2-6) % Eos % (Auto) (2-4) % Baso % (Auto) (0-1) % Sodium (140-148) mmol/L Potassium 3.7 (3.6-5.2) mmol/L Chloride (100-108) mmol/L Carbon Dioxide (21-32) mmol/L Anion Gap (5.0-14.0) mmol/L BUN (7-18) mg/dL Creatinine (0.6-1.0) mg/dL Est Cr Clr Drug Dosing mL/min Estimated GFR (MDRD) (>60) Glucose (74-106) mg/dL POC Glucose 211 H 184 H (74-106) mg/dL Calcium (8.5-10.1) mg/dL Lipase (73-393) U/L 03/03/21 03/03/21 03/03/21 Range/Units 11:59 13:07 13:56 WBC (4.5-11.0) K/uL RBC (3.30-5.50) M/uL Hgb (12.0-15.0) g/dL Hct (36.0-48.0) % MCV (80-98) fL MCH (27-31) pg MCHC (32-36) % Plt Count (150-400) K/uL Neut % (Auto) (36-66) % Lymph % (Auto) (24-44) % [place] % (Auto) (2-6) % Eos % (Auto) (2-4) % Baso % (Auto) (0-1) % Sodium (140-148) mmol/L Potassium (3.6-5.2) mmol/L Chloride (100-108) mmol/L Carbon Dioxide (21-32) mmol/L Anion Gap (5.0-14.0) mmol/L BUN (7-18) mg/dL Creatinine (0.6-1.0) mg/dL Est Cr Clr Drug Dosing mL/min Estimated GFR (MDRD) (>60) Glucose (74-106) mg/dL POC Glucose 197 H 178 H 190 H (74-106) mg/dL Calcium (8.5-10.1) mg/dL Lipase (73-393) U/L 03/03/21 03/03/21 03/03/21 Range/Units 16:48 17:05 20:13 WBC (4.5-11.0) K/uL RBC (3.30-5.50) M/uL Hgb (12.0-15.0) g/dL Hct (36.0-48.0) % MCV (80-98) fL MCH (27-31) pg MCHC (32-36) % Plt Count (150-400) K/uL Neut % (Auto) (36-66) % Lymph % (Auto) (24-44) % [place] % (Auto) (2-6) % Eos % (Auto) (2-4) % Baso % (Auto) (0-1) % Sodium 136 L (140-148) mmol/L Potassium 4.1 (3.6-5.2) mmol/L Chloride 106 (100-108) mmol/L Carbon Dioxide 19 L (21-32) mmol/L Anion Gap 15.1 H (5.0-14.0) mmol/L BUN 8 (7-18) mg/dL Creatinine 1.5 H (0.6-1.0) mg/dL Est Cr Clr Drug Dosing 34.91 mL/min Estimated GFR (MDRD) 35 L (>60) Glucose 229 H (74-106) mg/dL POC Glucose 210 H 211 H (74-106) mg/dL Calcium 9.2 (8.5-10.1) mg/dL Lipase (73-393) U/L 03/04/21 03/04/21 03/04/21 Range/Units 04:25 04:25 07:38 WBC 8.9 (4.5-11.0) K/uL RBC 3.11 L (3.30-5.50) M/uL Hgb 10.1 L (12.0-15.0) g/dL Hct 31.1 L (36.0-48.0) % MCV 100 H (80-98) fL MCH 33 H (27-31) pg MCHC 33 (32-36) % Plt Count 190 (150-400) K/uL Neut % (Auto) 62.6 (36-66) % Lymph % (Auto) 21.0 L (24-44) % [place] % (Auto) 14.9 H (2-6) % Eos % (Auto) 1.0 L (2-4) % Baso % (Auto) 0.5 (0-1) % Sodium 136 L (140-148) mmol/L Potassium 4.0 (3.6-5.2) mmol/L Chloride 106 (100-108) mmol/L Carbon Dioxide 22 (21-32) mmol/L Anion Gap 12.0 (5.0-14.0) mmol/L BUN 11 (7-18) mg/dL Creatinine 1.7 H (0.6-1.0) mg/dL Est Cr Clr Drug Dosing 30.80 mL/min Estimated GFR (MDRD) 30 L (>60) Glucose 248 H (74-106) mg/dL POC Glucose 262 H (74-106) mg/dL Calcium 9.5 (8.5-10.1) mg/dL Lipase 356 (73-393) U/L Med Orders - Current: Current Medications Acetaminophen (Acetaminophen 325 Mg Tab) 650 mg PO Q4H PRN PRN Reason: Pain (Mild 1-3)/fever Atorvastatin Calcium (Atorvastatin 20 Mg Tab) 80 mg PO DAILY [facility] Last Admin: 03/03/21 10:09 Dose: Not Given Documented by: Clopidogrel Bisulfate (Clopidogrel 75 Mg Tab) 75 mg PO DAILY [facility] Last Admin: 03/03/21 10:09 Dose: Not Given Documented by: Dextrose (Glucose Gel 15 Gm In 37.5 Gm Tube) 15 gm PO ONETIME PRN PRN Reason: Hypoglycemia Dextrose/Water (50% Dextrose In Water 50 Ml Syringe) 50 ml IV ONETIME PRN PRN Reason: Hypoglycemia Enoxaparin Sodium (Enoxaparin 40 Mg/0.4 Ml Syringe) 40 mg SUBCUT Q24H [facility] Last Admin: 03/03/21 17:12 Dose: 40 mg Documented by: Hydrochlorothiazide (Hydrochlorothiazide 25 Mg Tab) 25 mg PO DAILY [facility] Last Admin: 03/03/21 10:08 Dose: Not Given Documented by: Hydromorphone HCl (Hydromorphone 0.5 Mg/0.5 Ml Syringe) 0.5 mg IVPUSH Q2H PRN PRN Reason: Pain Last Admin: 03/04/21 05:48 Dose: 0.5 mg Documented by: Insulin Human Isoph/Insulin Regular (Insulin Nph/Insulin Regular,Human 70-30 100 Units/Ml 10 Ml Vial) 15 units SUBCUT BID [facility] Last Admin: 03/04/21 09:45 Dose: 15 units Documented by: Insulin Human Lispro (Insulin Lispro 100 Unit/Ml 3 Ml Kwikpen) 0 unit SUBCUT QIDACANDBED [facility]; Protocol Last Admin: 03/04/21 07:45 Dose: 6 units Documented by: Lisinopril (Lisinopril 20 Mg Tab) 20 mg PO DAILY [facility] Last Admin: 03/03/21 10:09 Dose: Not Given Documented by: Lorazepam (Lorazepam 2 Mg/Ml Sdv) 0 mg IV ASDIRECTED [facility]; Protocol Last Admin: 03/04/21 03:57 Dose: 1 mg Documented by: Lorazepam (Lorazepam 1 Mg Tab) 0 mg PO ASDIRECTED [facility]; Protocol Last Admin: 03/01/21 22:59 Dose: 1 mg Documented by: Ondansetron HCl (Ondansetron 4 Mg/2 Ml Sdv) 4 mg IV Q4H PRN PRN Reason: Nausea/Vomiting Pantoprazole Sodium (Pantoprazole 40 Mg Tab.Cr) 40 mg PO ACBREAKFAST [facility] Last Admin: 03/03/21 10:08 Dose: Not Given Documented by: Polyethylene Glycol (Polyethylene Glycol 3350 Powder 17 Gm Packet) 17 gm PO DAILY PRN PRN Reason: Constipation Sodium Chloride (Sodium Chloride 0.9% 10 Ml Syringe) 10 ml FLUSH ASDIRECTED PRN PRN Reason: Keep Vein Open Discontinued Medications Dextrose/Water (50% Dextrose In Water 50 Ml Syringe) 50 ml IVPUSH ASDIRECTED PRN PRN Reason: Hypoglycemia Glucagon (Glucagon,Human Recombinant 1 Mg Vial) 1 mg IM ASDIRECTED PRN PRN Reason: Hypoglycemia Hydromorphone HCl (Hydromorphone 0.5 Mg/0.5 Ml Syringe) 0.5 mg IVPUSH ONETIME ONE Stop: 02/28/21 10:24 Last Admin: 02/28/21 10:40 Dose: 0.5 mg Documented by: Hydromorphone HCl (Hydromorphone 0.5 Mg/0.5 Ml Syringe) 0.5 mg IVPUSH ONETIME ONE Stop: 02/28/21 12:11 Last Admin: 02/28/21 14:12 Dose: 0.5 mg Documented by: Sodium Chloride (Normal Saline) 1,000 mls @ 999 mls/hr IV ASDIRECTED [facility] Last Admin: 02/28/21 10:29 Dose: 999 mls/hr Documented by: Sodium Chloride (Normal Saline) 1,000 mls @ 999 mls/hr IV ASDIRECTED [facility] Last Admin: 02/28/21 11:41 Dose: 999 mls/hr Documented by: Sodium Chloride (Normal Saline) 1,000 mls @ 500 mls/hr IV ASDIRECTED [facility] Insulin Regular in 0.9 % NACL (Myxredlin In Ns 100 Unit/100 Ml) 100 unit in 100 mls @ 8.301 mls/hr IV ASDIRECTED [facility]; Protocol Last Infusion: 03/01/21 05:58 Dose: 0.05 units/kg/hr, 4 mls/hr Documented by: Sodium Chloride (Normal Saline) 2,000 mls @ 500 mls/hr IV .CONTINUOUS PRN PRN Reason: Blood Glucose Last Admin: 02/28/21 14:24 Dose: 500 mls/hr Documented by: Dextrose/Sodium Chloride (Dextrose 5%-1/2 Ns) 1,000 mls @ 150 mls/hr IV .CONTINUOUS PRN PRN Reason: Blood Glucose Last Admin: 03/03/21 08:56 Dose: 150 mls/hr Documented by: Potassium Chloride 20 meq/ (Premix) 100 mls @ 50 mls/hr IV ASDIRECTED PRN PRN Reason: LOW POTASSIUM Last Admin: 03/03/21 05:24 Dose: 50 mls/hr Documented by: Potassium Chloride 20 meq/ (Premix) 100 mls @ 50 mls/hr IV Q2H PRN PRN Reason: Hypokalemia Potassium Chloride 20 meq/ (Premix) 100 mls @ 50 mls/hr IV Q2H PRN PRN Reason: Hypokalemia Magnesium Sulfate (Magnesium Sulfate In Water 2 Gm/50 Ml) 50 mls @ 25 mls/hr IV ONETIME PRN PRN Reason: low magnesium Last Admin: 02/28/21 20:04 Dose: 25 mls/hr Documented by: Sodium Phosphate 60 mmole/ (Sodium Chloride) 270 mls @ 62.5 mls/hr IV ONETIME PRN PRN Reason: Low phophorus Insulin Regular in 0.9 % NACL (Myxredlin In Ns 100 Unit/100 Ml) 100 mls @ 8.301 mls/hr IV ASDIRECTED [facility]; Protocol Last Infusion: 03/02/21 12:59 Dose: 0.07 units/kg/hr, 6 mls/hr Documented by: Potassium Chloride 20 meq/Lidocaine HCl 2 ml/ Sodium Chloride 112 mls @ 56 mls/hr IV ONETIME ONE Stop: 03/01/21 10:59 Last Admin: 03/01/21 08:50 Dose: 56 mls/hr Documented by: Potassium Chloride 20 meq/Lidocaine HCl 2 ml/ Sodium Chloride 112 mls @ 56 mls/hr IV ONETIME ONE Stop: 03/01/21 13:59 Last Admin: 03/01/21 12:01 Dose: 56 mls/hr Documented by: Potassium Chloride 20 meq/Lidocaine HCl 2 ml/ Sodium Chloride 112 mls @ 56 mls/hr IV ONETIME ONE Stop: 03/01/21 17:59 Last Admin: 03/01/21 16:03 Dose: 56 mls/hr Documented by: Potassium Phosphate (Potassium Phos In Ns 15 Mmol/250 Ml) 250 mls @ 83.333 mls/hr IV ONETIME ONE Stop: 03/01/21 22:40 Last Admin: 03/01/21 20:03 Dose: 83.333 mls/hr Documented by: Potassium Phosphate (Potassium Phos In Ns 15 Mmol/250 Ml) 250 mls @ 83.333 mls/hr IV ONETIME ONE Stop: 03/02/21 01:59 Last Admin: 03/01/21 23:07 Dose: 83.333 mls/hr Documented by: Insulin Regular in 0.9 % NACL (Myxredlin In Ns 100 Unit/100 Ml) 100 mls @ 8.46 mls/hr IV ASDIRECTED [facility]; Protocol Last Infusion: 03/03/21 13:57 Dose: 0.06 units/kg/hr, 5 mls/hr Documented by: Potassium Chloride 20 meq/Lidocaine HCl 2 ml/ Sodium Chloride 112 mls @ 56 mls/hr IV ONETIME ONE Stop: 03/02/21 11:59 Last Admin: 03/02/21 09:43 Dose: 56 mls/hr Documented by: Magnesium Sulfate 2 gm/ Premix 50 mls @ 25 mls/hr IV ONETIME ONE Stop: 03/02/21 11:59 Last Admin: 03/02/21 09:44 Dose: 25 mls/hr Documented by: Potassium Chloride 20 meq/Lidocaine HCl 2 ml/ Sodium Chloride 112 mls @ 56 mls/hr IV ONETIME ONE Stop: 03/02/21 13:59 Last Admin: 03/02/21 11:47 Dose: 56 mls/hr Documented by: Potassium Chloride 20 meq/Lidocaine HCl 2 ml/ Sodium Chloride 112 mls @ 56 mls/hr IV ONETIME ONE Stop: 03/02/21 16:29 Last Admin: 03/02/21 14:34 Dose: 56 mls/hr Documented by: Potassium Chloride 20 meq/Lidocaine HCl 2 ml/ Sodium Chloride 112 mls @ 56 mls/hr IV ONETIME ONE Stop: 03/03/21 13:59 Last Admin: 03/03/21 11:34 Dose: 56 mls/hr Documented by: Insulin Human Regular (Insulin Regular, Human 100 Units/Ml 3 Ml Vial) 3 unit IVPUSH ONETIME ONE Stop: 02/28/21 11:13 Last Admin: 02/28/21 11:53 Dose: 3 units Documented by: Insulin Human Regular (Insulin Regular, Human 100 Units/Ml 3 Ml Vial) 3 unit SUBCUT ONETIME ONE Stop: 02/28/21 11:14 Last Admin: 02/28/21 11:54 Dose: 3 unit Documented by: Lidocaine HCl (Lidocaine 1% 5 Ml Sdv) 2 ml INJECT ONETIME ONE Stop: 02/28/21 20:10 Last Admin: 02/28/21 20:28 Dose: 2 ml Documented by: Lidocaine HCl (Lidocaine 1% 5 Ml Sdv) Confirm Administered Dose 5 ml .ROUTE .STK-MED ONE Stop: 02/28/21 20:16 Last Admin: 02/28/21 20:28 Dose: Not Given Documented by: Lidocaine HCl (Lidocaine 1% 5 Ml Sdv) 2 ml INJECT ONETIME ONE Stop: 03/01/21 03:49 Last Admin: 03/01/21 03:53 Dose: 2 ml Documented by: Lidocaine HCl (Lidocaine 1% 5 Ml Sdv) Confirm Administered Dose 5 ml .ROUTE .STK-MED ONE Stop: 03/01/21 03:50 Last Admin: 03/01/21 03:53 Dose: Not Given Documented by: Lidocaine HCl (Lidocaine 1% 5 Ml Sdv) 2 ml INJECT ONETIME ONE Stop: 03/02/21 05:52 Last Admin: 03/02/21 06:03 Dose: 2 ml Documented by: Lidocaine HCl (Lidocaine 1% 5 Ml Sdv) 2 ml INJECT ONETIME ONE Stop: 03/02/21 18:09 Last Admin: 03/02/21 18:34 Dose: 2 ml Documented by: Lidocaine HCl (Lidocaine 1% 5 Ml Sdv) 2 ml INJECT ONETIME ONE Stop: 03/03/21 01:53 Last Admin: 03/03/21 01:54 Dose: 2 ml Documented by: Lidocaine HCl (Lidocaine 1% 5 Ml Sdv) Confirm Administered Dose 5 ml .ROUTE .STK-MED ONE Stop: 03/03/21 01:53 Last Admin: 03/03/21 01:56 Dose: Not Given Documented by: Lidocaine HCl (Lidocaine 1% 5 Ml Sdv) 2 ml INJECT ONETIME ONE Stop: 03/03/21 05:13 Last Admin: 03/03/21 05:27 Dose: 2 ml Documented by: Ondansetron HCl (Ondansetron 4 Mg/2 Ml Sdv) 4 mg IVPUSH ONETIME ONE Stop: 02/28/21 10:24 Last Admin: 02/28/21 10:35 Dose: 4 mg Documented by: Potassium Chloride (Potassium Chloride 10% 20 Meq/15 Ml Soln 15 Ml Ud Cup) 20 meq PO NOW PRN PRN Reason: Hypokalemia Last Admin: 03/01/21 17:24 Dose: 20 meq Documented by: Potassium Chloride (Potassium Chloride 10% 20 Meq/15 Ml Soln 15 Ml Ud Cup) 40 meq PO NOW PRN PRN Reason: Hypokalemia Last Admin: 03/02/21 03:49 Dose: 40 meq Documented by: Potassium Chloride (Potassium Chloride 10% 20 Meq/15 Ml Soln 15 Ml Ud Cup) 40 meq PO Q2H PRN PRN Reason: Hypokalemia - Exam Quality Assessment: Supplemental Oxygen General: Alert, Cooperative, Mild Distress. No: Oriented HEENT: Pupils Equal Lungs: Normal Respiratory Effort, Crackles (few both bases) Cardiovascular: Regular Rate, Regular Rhythm GI/Abdominal Exam: Soft, No Distention, Tender (mild epigastric ). No: Guarding Extremities: No Pedal Edema. No: Increased Warmth Skin: Warm, Dry Psy/Mental Status: Alert, Anxious - Patient Data Lab Results Last 24 hrs: Laboratory Results - last 24 hr 03/03/21 03/03/21 03/03/21 Range/Units 10:03 10:55 11:00 WBC (4.5-11.0) K/uL RBC (3.30-5.50) M/uL Hgb (12.0-15.0) g/dL Hct (36.0-48.0) % MCV (80-98) fL MCH (27-31) pg MCHC (32-36) % Plt Count (150-400) K/uL Neut % (Auto) (36-66) % Lymph % (Auto) (24-44) % [place] % (Auto) (2-6) % Eos % (Auto) (2-4) % Baso % (Auto) (0-1) % Sodium (140-148) mmol/L Potassium 3.7 (3.6-5.2) mmol/L Chloride (100-108) mmol/L Carbon Dioxide (21-32) mmol/L Anion Gap (5.0-14.0) mmol/L BUN (7-18) mg/dL Creatinine (0.6-1.0) mg/dL Est Cr Clr Drug Dosing mL/min Estimated GFR (MDRD) (>60) Glucose (74-106) mg/dL POC Glucose 211 H 184 H (74-106) mg/dL Calcium (8.5-10.1) mg/dL Lipase (73-393) U/L 03/03/21 03/03/21 03/03/21 Range/Units 11:59 13:07 13:56 WBC (4.5-11.0) K/uL RBC (3.30-5.50) M/uL Hgb (12.0-15.0) g/dL Hct (36.0-48.0) % MCV (80-98) fL MCH (27-31) pg MCHC (32-36) % Plt Count (150-400) K/uL Neut % (Auto) (36-66) % Lymph % (Auto) (24-44) % [place] % (Auto) (2-6) % Eos % (Auto) (2-4) % Baso % (Auto) (0-1) % Sodium (140-148) mmol/L Potassium (3.6-5.2) mmol/L Chloride (100-108) mmol/L Carbon Dioxide (21-32) mmol/L Anion Gap (5.0-14.0) mmol/L BUN (7-18) mg/dL Creatinine (0.6-1.0) mg/dL Est Cr Clr Drug Dosing mL/min Estimated GFR (MDRD) (>60) Glucose (74-106) mg/dL POC Glucose 197 H 178 H 190 H (74-106) mg/dL Calcium (8.5-10.1) mg/dL Lipase (73-393) U/L 12/12/21 12/12/21 12/12/21 Range/Units 16:48 17:05 20:13 WBC (4.5-11.0) K/uL RBC (3.30-5.50) M/uL Hgb (12.0-15.0) g/dL Hct (36.0-48.0) % MCV (80-98) fL MCH (27-31) pg MCHC (32-36) % Plt Count (150-400) K/uL Neut % (Auto) (36-66) % Lymph % (Auto) (24-44) % [place] % (Auto) (2-6) % Eos % (Auto) (2-4) % Baso % (Auto) (0-1) % Sodium 136 L (140-148) mmol/L Potassium 4.1 (3.6-5.2) mmol/L Chloride 106 (100-108) mmol/L Carbon Dioxide 19 L (21-32) mmol/L Anion Gap 15.1 H (5.0-14.0) mmol/L BUN 8 (7-18) mg/dL Creatinine 1.5 H (0.6-1.0) mg/dL Est Cr Clr Drug Dosing 34.91 mL/min Estimated GFR (MDRD) 35 L (>60) Glucose 229 H (74-106) mg/dL POC Glucose 210 H 211 H (74-106) mg/dL Calcium 9.2 (8.5-10.1) mg/dL Lipase (73-393) U/L 03/04/21 03/04/21 03/04/21 Range/Units 04:25 04:25 07:38 WBC 8.9 (4.5-11.0) K/uL RBC 3.11 L (3.30-5.50) M/uL Hgb 10.1 L (12.0-15.0) g/dL Hct 31.1 L (36.0-48.0) % MCV 100 H (80-98) fL MCH 33 H (27-31) pg MCHC 33 (32-36) % Plt Count 190 (150-400) K/uL Neut % (Auto) 62.6 (36-66) % Lymph % (Auto) 21.0 L (24-44) % [place] % (Auto) 14.9 H (2-6) % Eos % (Auto) 1.0 L (2-4) % Baso % (Auto) 0.5 (0-1) % Sodium 136 L (140-148) mmol/L Potassium 4.0 (3.6-5.2) mmol/L Chloride 106 (100-108) mmol/L Carbon Dioxide 22 (21-32) mmol/L Anion Gap 12.0 (5.0-14.0) mmol/L BUN 11 (7-18) mg/dL Creatinine 1.7 H (0.6-1.0) mg/dL Est Cr Clr Drug Dosing 30.80 mL/min Estimated GFR (MDRD) 30 L (>60) Glucose 248 H (74-106) mg/dL POC Glucose 262 H (74-106) mg/dL Calcium 9.5 (8.5-10.1) mg/dL Lipase 356 (73-393) U/L Result Diagrams: 03/04/21 04:25 03/04/21 04:25 Sepsis Event Note - Evaluation Sepsis Screening Result: No Definite Risk - Focused Exam Vital Signs: Vital Signs Temp Pulse Resp BP Pulse Ox 03/04/21 07:49 36.1 C 16 93/58 L 100 03/04/21 06:00 101 H 12 98/56 L 97 03/04/21 04:00 35.6 C L 106 H 14 106/66 99 03/04/21 02:00 95 11 L 101/58 L 97 03/04/21 00:00 35.6 C L 104 H 14 93/54 L 96 03/03/21 22:00 98 14 130/64 100 - Problem List Review Problem List Initiated/Reviewed/Updated: Yes - My Orders Last 24 Hours: My Active Orders 03/05/21 05:00 CBC W/O DIFF,HEMOGRAM [HEME] Timed (1) COMPREHENSIVE METABOLIC PN,CMP [CHEM] Timed - Plan Plan:: ASSESSMENT AND PLAN - DIABETIC KETOACIDOSIS-2/2 acute pancreatitis. This has resolved. She has been transition back to usual insulin as mentioned below. -Saline lock IV ACUTE PANCREATITIS-secondary to alcohol. Symptoms improving. Lipase normal. -Consistent carbohydrate diet -Saline lock IV -Pain medication as needed TYPE 2 DIABETES MELLITUS-moderate elevation of blood sugars. -4 times daily glucometers -70/30 insulin 15 units subcu twice daily -Moderate dose sliding scale insulin ALCOHOL WITHDRAWAL-she continues to be confused and is receiving lorazepam for alcohol withdrawal but hopefully is nearing the end of her withdrawal syndrome. -Alcohol withdrawal protocol MAINTENANCE ISSUES -DVT prophylaxis; Lovenox 40 mg subcu daily -GI prophylaxis; not indicated -Paul catheter; not indicated -Nutrition; consistent carbohydrates DISPOSITION-anticipate discharge to home after the hospital stay. Chirag Hopson MD
[2021-03-04] MEDS: Hydrochlorothiazide 25 MG Tab PO SCH (11:48)
[2021-03-04] MEDS: Lisinopril 20 MG Tab PO SCH (11:48)
[2021-03-04] MEDS: atorvaSTATin 20 MG Tab PO SCH (11:48)
[2021-03-04] MEDS: Clopidogrel 75 MG Tab PO SCH (11:48)
[2021-03-04] MEDS: Pantoprazole 40 MG Tab.CR PO SCH (11:48)
[2021-03-04] MEDS: Enoxaparin 40 MG/0.4 ML Syringe SUBCUT SCH (16:54)
[2021-03-04] MEDS ORDERED: Metoprolol Tartrate 25 MG Tab ONE (18:28)
[2021-03-04] MEDS: Metoprolol Tartrate 25 MG Tab PO SCH (18:32)
[2021-03-04] MEDS: LORazepam 1 MG Tab PO SCH (20:19)
[2021-03-05] MEDS: LORazepam 2 MG/ML SDV IV SCH (02:11)
[2021-03-05] MEDS: HYDROmorphone 0.5 MG/0.5 ML Syringe IVPUSH PRN (03:25)
[2021-03-05] MEDS: Insulin Lispro 100 Unit/ML 3 ML KwikPen SUBCUT SCH ×4 (07:18→20:03)
[2021-03-05] MEDS: Pantoprazole 40 MG Tab.CR PO SCH (07:23)
[2021-03-05] MEDS: Metoprolol Tartrate 25 MG Tab PO SCH ×2 (07:23→18:21)
[2021-03-05] MEDS: Lisinopril 20 MG Tab PO SCH (09:02)
[2021-03-05] MEDS: Clopidogrel 75 MG Tab PO SCH (09:02)
[2021-03-05] MEDS: Hydrochlorothiazide 25 MG Tab PO SCH (09:02)
[2021-03-05] MEDS: atorvaSTATin 20 MG Tab PO SCH (09:02)
[2021-03-05] MEDS: Insulin NPH/Insulin Regular,Human 70-30 100 Units/ML 10 ML Vial SUBCUT SCH ×2 (09:06→16:23)
[2021-03-05] MEDS: NS + KCl 20mEq/L 1,000 ML IV SCH ×2 (09:21→23:17)
[2021-03-05] MEDS: Potassium Chloride 20 MEQ, Lidocaine 1% 2 ML in Sodium Chloride 0.9% 100 ML IV SCH ×2 (09:47→12:31)
--- NOTE | 2021-03-05 10:20 | PCM.PN ---
- General Info Date of Service: 03/05/21 Subjective Update: No acute events overnight. Patient is more alert and interactive but still somewhat confused. She does know she is in [place] but she is not sure what building she is in or even what season it is. She does tell me that she feels like singing today. She does not complain of any abdominal pain or nausea. Oral intake has been poor. She has been sleeping most of the time. No fevers. She did have a short run of atrial fibrillation that resolved after a dose of metoprolol. Functional Status: Reports: Pain Controlled - Review of Systems General: Reports: Weakness Neurological: Reports: Confusion - Patient Data Vitals - Most Recent: Last Vital Signs Temp 36.4 C 03/05/21 08:06 Pulse 86 03/05/21 08:06 Resp 14 03/05/21 08:06 BP 124/71 03/05/21 09:02 Pulse Ox 92 L 03/05/21 08:06 Weight - Most Recent: 84.368 kg I&O - Last 24 Hours: Intake & Output 03/04/21 03/05/21 03/05/21 22:59 06:59 14:59 Intake Total 200 75 15 Balance 200 75 15 Lab Results Last 24 Hours: Laboratory Results - last 24 hr 03/04/21 03/04/21 03/04/21 Range/Units 11:44 16:53 19:58 WBC (4.5-11.0) K/uL RBC (3.30-5.50) M/uL Hgb (12.0-15.0) g/dL Hct (36.0-48.0) % MCV (80-98) fL MCH (27-31) pg MCHC (32-36) % Plt Count (150-400) K/uL Sodium (140-148) mmol/L Potassium (3.6-5.2) mmol/L Chloride (100-108) mmol/L Carbon Dioxide (21-32) mmol/L Anion Gap (5.0-14.0) mmol/L BUN (7-18) mg/dL Creatinine (0.6-1.0) mg/dL Est Cr Clr Drug Dosing mL/min Estimated GFR (MDRD) (>60) Glucose (74-106) mg/dL POC Glucose 245 H 245 H 218 H (74-106) mg/dL Calcium (8.5-10.1) mg/dL Total Bilirubin (0.2-1.0) mg/dL AST (15-37) U/L ALT (12-78) U/L Alkaline Phosphatase (46-116) U/L Total Protein (6.4-8.2) g/dL Albumin (3.4-5.0) g/dL Globulin (2.3-3.5) g/dL Albumin/Globulin Ratio (1.2-2.2) 03/05/21 03/05/21 03/05/21 Range/Units 04:30 04:30 07:17 WBC 7.2 (4.5-11.0) K/uL RBC 3.33 (3.30-5.50) M/uL Hgb 10.5 L (12.0-15.0) g/dL Hct 33.1 L (36.0-48.0) % MCV 99 H (80-98) fL MCH 32 H (27-31) pg MCHC 32 (32-36) % Plt Count 187 (150-400) K/uL Sodium 142 (140-148) mmol/L Potassium 3.5 L (3.6-5.2) mmol/L Chloride 107 (100-108) mmol/L Carbon Dioxide 22 (21-32) mmol/L Anion Gap 16.5 H (5.0-14.0) mmol/L BUN 19 H D (7-18) mg/dL Creatinine 1.7 H (0.6-1.0) mg/dL Est Cr Clr Drug Dosing 30.80 mL/min Estimated GFR (MDRD) 30 L (>60) Glucose 268 H (74-106) mg/dL POC Glucose 272 H (74-106) mg/dL Calcium 9.2 (8.5-10.1) mg/dL Total Bilirubin 0.3 (0.2-1.0) mg/dL AST 15 (15-37) U/L ALT 12 (12-78) U/L Alkaline Phosphatase 84 (46-116) U/L Total Protein 6.2 L (6.4-8.2) g/dL Albumin 2.0 L (3.4-5.0) g/dL Globulin 4.2 H (2.3-3.5) g/dL Albumin/Globulin Ratio 0.5 L (1.2-2.2) Med Orders - Current: Current Medications Acetaminophen (Acetaminophen 325 Mg Tab) 650 mg PO Q4H PRN PRN Reason: Pain (Mild 1-3)/fever Atorvastatin Calcium (Atorvastatin 20 Mg Tab) 80 mg PO DAILY [facility] Last Admin: 03/05/21 09:02 Dose: 80 mg Documented by: Clopidogrel Bisulfate (Clopidogrel 75 Mg Tab) 75 mg PO DAILY [facility] Last Admin: 03/05/21 09:02 Dose: 75 mg Documented by: Dextrose (Glucose Gel 15 Gm In 37.5 Gm Tube) 15 gm PO ONETIME PRN PRN Reason: Hypoglycemia Dextrose/Water (50% Dextrose In Water 50 Ml Syringe) 50 ml IV ONETIME PRN PRN Reason: Hypoglycemia Enoxaparin Sodium (Enoxaparin 40 Mg/0.4 Ml Syringe) 40 mg SUBCUT Q24H [facility] Last Admin: 03/04/21 16:54 Dose: 40 mg Documented by: Hydrochlorothiazide (Hydrochlorothiazide 25 Mg Tab) 25 mg PO DAILY [facility] Last Admin: 03/05/21 09:02 Dose: 25 mg Documented by: Hydromorphone HCl (Hydromorphone 0.5 Mg/0.5 Ml Syringe) 0.5 mg IVPUSH Q2H PRN PRN Reason: Pain Last Admin: 03/05/21 03:25 Dose: 0.5 mg Documented by: Potassium Chloride/Sodium Chloride (Normal Saline With 20 Meq Kcl) 1,000 mls @ 75 mls/hr IV ASDIRECTED [facility] Last Admin: 03/05/21 09:21 Dose: 75 mls/hr Documented by: Potassium Chloride 20 meq/Lidocaine HCl 2 ml/ Sodium Chloride 112 mls @ 56 mls/hr IV Q2H [facility] Stop: 03/05/21 13:29 Last Admin: 03/05/21 09:47 Dose: 56 mls/hr Documented by: Insulin Human Isoph/Insulin Regular (Insulin Nph/Insulin Regular,Human 70-30 100 Units/Ml 10 Ml Vial) 20 units SUBCUT BIDAC [facility] Last Admin: 03/05/21 09:06 Dose: 20 unit Documented by: Insulin Human Lispro (Insulin Lispro 100 Unit/Ml 3 Ml Kwikpen) 0 unit SUBCUT QIDACANDBED [facility]; Protocol Last Admin: 03/05/21 07:18 Dose: 6 units Documented by: Lisinopril (Lisinopril 20 Mg Tab) 20 mg PO DAILY [facility] Last Admin: 03/05/21 09:02 Dose: 20 mg Documented by: Lorazepam (Lorazepam 2 Mg/Ml Sdv) 0 mg IV ASDIRECTED [facility]; Protocol Last Admin: 03/05/21 02:11 Dose: 1 mg Documented by: Lorazepam (Lorazepam 1 Mg Tab) 0 mg PO ASDIRECTED [facility]; Protocol Last Admin: 03/04/21 20:19 Dose: 1 mg Documented by: Metoprolol Tartrate (Metoprolol Tartrate 25 Mg Tab) 25 mg PO Q12H [facility] Last Admin: 03/05/21 07:23 Dose: 25 mg Documented by: Ondansetron HCl (Ondansetron 4 Mg/2 Ml Sdv) 4 mg IV Q4H PRN PRN Reason: Nausea/Vomiting Pantoprazole Sodium (Pantoprazole 40 Mg Tab.Cr) 40 mg PO ACBREAKFAST [facility] Last Admin: 03/05/21 07:23 Dose: 40 mg Documented by: Polyethylene Glycol (Polyethylene Glycol 3350 Powder 17 Gm Packet) 17 gm PO DAILY PRN PRN Reason: Constipation Sodium Chloride (Sodium Chloride 0.9% 10 Ml Syringe) 10 ml FLUSH ASDIRECTED PRN PRN Reason: Keep Vein Open Discontinued Medications Dextrose/Water (50% Dextrose In Water 50 Ml Syringe) 50 ml IVPUSH ASDIRECTED PRN PRN Reason: Hypoglycemia Glucagon (Glucagon,Human Recombinant 1 Mg Vial) 1 mg IM ASDIRECTED PRN PRN Reason: Hypoglycemia Hydromorphone HCl (Hydromorphone 0.5 Mg/0.5 Ml Syringe) 0.5 mg IVPUSH ONETIME ONE Stop: 02/28/21 10:24 Last Admin: 02/28/21 10:40 Dose: 0.5 mg Documented by: Hydromorphone HCl (Hydromorphone 0.5 Mg/0.5 Ml Syringe) 0.5 mg IVPUSH ONETIME ONE Stop: 02/28/21 12:11 Last Admin: 02/28/21 14:12 Dose: 0.5 mg Documented by: Sodium Chloride (Normal Saline) 1,000 mls @ 999 mls/hr IV ASDIRECTED [facility] Last Admin: 02/28/21 10:29 Dose: 999 mls/hr Documented by: Sodium Chloride (Normal Saline) 1,000 mls @ 999 mls/hr IV ASDIRECTED [facility] Last Admin: 02/28/21 11:41 Dose: 999 mls/hr Documented by: Sodium Chloride (Normal Saline) 1,000 mls @ 500 mls/hr IV ASDIRECTED [facility] Insulin Regular in 0.9 % NACL (Myxredlin In Ns 100 Unit/100 Ml) 100 unit in 100 mls @ 8.301 mls/hr IV ASDIRECTED [facility]; Protocol Last Infusion: 03/01/21 05:58 Dose: 0.05 units/kg/hr, 4 mls/hr Documented by: Sodium Chloride (Normal Saline) 2,000 mls @ 500 mls/hr IV .CONTINUOUS PRN PRN Reason: Blood Glucose Last Admin: 02/28/21 14:24 Dose: 500 mls/hr Documented by: Dextrose/Sodium Chloride (Dextrose 5%-1/2 Ns) 1,000 mls @ 150 mls/hr IV .CONTINUOUS PRN PRN Reason: Blood Glucose Last Admin: 03/03/21 08:56 Dose: 150 mls/hr Documented by: Potassium Chloride 20 meq/ (Premix) 100 mls @ 50 mls/hr IV ASDIRECTED PRN PRN Reason: LOW POTASSIUM Last Admin: 03/03/21 05:24 Dose: 50 mls/hr Documented by: Potassium Chloride 20 meq/ (Premix) 100 mls @ 50 mls/hr IV Q2H PRN PRN Reason: Hypokalemia Potassium Chloride 20 meq/ (Premix) 100 mls @ 50 mls/hr IV Q2H PRN PRN Reason: Hypokalemia Magnesium Sulfate (Magnesium Sulfate In Water 2 Gm/50 Ml) 50 mls @ 25 mls/hr IV ONETIME PRN PRN Reason: low magnesium Last Admin: 02/28/21 20:04 Dose: 25 mls/hr Documented by: Sodium Phosphate 60 mmole/ (Sodium Chloride) 270 mls @ 62.5 mls/hr IV ONETIME PRN PRN Reason: Low phophorus Insulin Regular in 0.9 % NACL (Myxredlin In Ns 100 Unit/100 Ml) 100 mls @ 8.301 mls/hr IV ASDIRECTED [facility]; Protocol Last Infusion: 03/02/21 12:59 Dose: 0.07 units/kg/hr, 6 mls/hr Documented by: Potassium Chloride 20 meq/Lidocaine HCl 2 ml/ Sodium Chloride 112 mls @ 56 mls/hr IV ONETIME ONE Stop: 03/01/21 10:59 Last Admin: 03/01/21 08:50 Dose: 56 mls/hr Documented by: Potassium Chloride 20 meq/Lidocaine HCl 2 ml/ Sodium Chloride 112 mls @ 56 mls/hr IV ONETIME ONE Stop: 03/01/21 13:59 Last Admin: 03/01/21 12:01 Dose: 56 mls/hr Documented by: Potassium Chloride 20 meq/Lidocaine HCl 2 ml/ Sodium Chloride 112 mls @ 56 mls/hr IV ONETIME ONE Stop: 03/01/21 17:59 Last Admin: 03/01/21 16:03 Dose: 56 mls/hr Documented by: Potassium Phosphate (Potassium Phos In Ns 15 Mmol/250 Ml) 250 mls @ 83.333 mls/hr IV ONETIME ONE Stop: 03/01/21 22:40 Last Admin: 03/01/21 20:03 Dose: 83.333 mls/hr Documented by: Potassium Phosphate (Potassium Phos In Ns 15 Mmol/250 Ml) 250 mls @ 83.333 mls/hr IV ONETIME ONE Stop: 03/02/21 01:59 Last Admin: 03/01/21 23:07 Dose: 83.333 mls/hr Documented by: Insulin Regular in 0.9 % NACL (Myxredlin In Ns 100 Unit/100 Ml) 100 mls @ 8.46 mls/hr IV ASDIRECTED [facility]; Protocol Last Infusion: 03/03/21 13:57 Dose: 0.06 units/kg/hr, 5 mls/hr Documented by: Potassium Chloride 20 meq/Lidocaine HCl 2 ml/ Sodium Chloride 112 mls @ 56 mls/hr IV ONETIME ONE Stop: 03/02/21 11:59 Last Admin: 03/02/21 09:43 Dose: 56 mls/hr Documented by: Magnesium Sulfate 2 gm/ Premix 50 mls @ 25 mls/hr IV ONETIME ONE Stop: 03/02/21 11:59 Last Admin: 03/02/21 09:44 Dose: 25 mls/hr Documented by: Potassium Chloride 20 meq/Lidocaine HCl 2 ml/ Sodium Chloride 112 mls @ 56 mls/hr IV ONETIME ONE Stop: 03/02/21 13:59 Last Admin: 03/02/21 11:47 Dose: 56 mls/hr Documented by: Potassium Chloride 20 meq/Lidocaine HCl 2 ml/ Sodium Chloride 112 mls @ 56 mls/hr IV ONETIME ONE Stop: 03/02/21 16:29 Last Admin: 03/02/21 14:34 Dose: 56 mls/hr Documented by: Potassium Chloride 20 meq/Lidocaine HCl 2 ml/ Sodium Chloride 112 mls @ 56 mls/hr IV ONETIME ONE Stop: 03/03/21 13:59 Last Admin: 03/03/21 11:34 Dose: 56 mls/hr Documented by: Insulin Human Isoph/Insulin Regular (Insulin Nph/Insulin Regular,Human 70-30 100 Units/Ml 10 Ml Vial) 15 units SUBCUT BID [facility] Last Admin: 03/04/21 21:08 Dose: 15 units Documented by: Insulin Human Regular (Insulin Regular, Human 100 Units/Ml 3 Ml Vial) 3 unit IVPUSH ONETIME ONE Stop: 02/28/21 11:13 Last Admin: 02/28/21 11:53 Dose: 3 units Documented by: Insulin Human Regular (Insulin Regular, Human 100 Units/Ml 3 Ml Vial) 3 unit SUBCUT ONETIME ONE Stop: 02/28/21 11:14 Last Admin: 02/28/21 11:54 Dose: 3 unit Documented by: Lidocaine HCl (Lidocaine 1% 5 Ml Sdv) 2 ml INJECT ONETIME ONE Stop: 02/28/21 20:10 Last Admin: 02/28/21 20:28 Dose: 2 ml Documented by: Lidocaine HCl (Lidocaine 1% 5 Ml Sdv) Confirm Administered Dose 5 ml .ROUTE .STK-MED ONE Stop: 02/28/21 20:16 Last Admin: 02/28/21 20:28 Dose: Not Given Documented by: Lidocaine HCl (Lidocaine 1% 5 Ml Sdv) 2 ml INJECT ONETIME ONE Stop: 03/01/21 03:49 Last Admin: 03/01/21 03:53 Dose: 2 ml Documented by: Lidocaine HCl (Lidocaine 1% 5 Ml Sdv) Confirm Administered Dose 5 ml .ROUTE .STK-MED ONE Stop: 03/01/21 03:50 Last Admin: 03/01/21 03:53 Dose: Not Given Documented by: Lidocaine HCl (Lidocaine 1% 5 Ml Sdv) 2 ml INJECT ONETIME ONE Stop: 03/02/21 05:52 Last Admin: 03/02/21 06:03 Dose: 2 ml Documented by: Lidocaine HCl (Lidocaine 1% 5 Ml Sdv) 2 ml INJECT ONETIME ONE Stop: 03/02/21 18:09 Last Admin: 03/02/21 18:34 Dose: 2 ml Documented by: Lidocaine HCl (Lidocaine 1% 5 Ml Sdv) 2 ml INJECT ONETIME ONE Stop: 03/03/21 01:53 Last Admin: 03/03/21 01:54 Dose: 2 ml Documented by: Lidocaine HCl (Lidocaine 1% 5 Ml Sdv) Confirm Administered Dose 5 ml .ROUTE .STK-MED ONE Stop: 03/03/21 01:53 Last Admin: 03/03/21 01:56 Dose: Not Given Documented by: Lidocaine HCl (Lidocaine 1% 5 Ml Sdv) 2 ml INJECT ONETIME ONE Stop: 03/03/21 05:13 Last Admin: 03/03/21 05:27 Dose: 2 ml Documented by: Metoprolol Tartrate (Metoprolol Tartrate 25 Mg Tab) Confirm Administered Dose 25 mg .ROUTE .STK-MED ONE Stop: 03/04/21 18:29 Last Admin: 03/04/21 18:33 Dose: Not Given Documented by: Ondansetron HCl (Ondansetron 4 Mg/2 Ml Sdv) 4 mg IVPUSH ONETIME ONE Stop: 02/28/21 10:24 Last Admin: 02/28/21 10:35 Dose: 4 mg Documented by: Potassium Chloride (Potassium Chloride 10% 20 Meq/15 Ml Soln 15 Ml Ud Cup) 20 meq PO NOW PRN PRN Reason: Hypokalemia Last Admin: 03/01/21 17:24 Dose: 20 meq Documented by: Potassium Chloride (Potassium Chloride 10% 20 Meq/15 Ml Soln 15 Ml Ud Cup) 40 meq PO NOW PRN PRN Reason: Hypokalemia Last Admin: 03/02/21 03:49 Dose: 40 meq Documented by: Potassium Chloride (Potassium Chloride 10% 20 Meq/15 Ml Soln 15 Ml Ud Cup) 40 meq PO Q2H PRN PRN Reason: Hypokalemia - Exam Quality Assessment: No: Supplemental Oxygen General: Alert, Cooperative, No Acute Distress. No: Oriented Lungs: Normal Respiratory Effort. No: Wheezing GI/Abdominal Exam: Soft, No Distention, Tender (mild epigastrium ) Extremities: No Pedal Edema. No: Increased Warmth Skin: Warm, Dry Psy/Mental Status: Alert. No: Agitated - Patient Data Lab Results Last 24 hrs: Laboratory Results - last 24 hr 03/04/21 03/04/21 03/04/21 Range/Units 11:44 16:53 19:58 WBC (4.5-11.0) K/uL RBC (3.30-5.50) M/uL Hgb (12.0-15.0) g/dL Hct (36.0-48.0) % MCV (80-98) fL MCH (27-31) pg MCHC (32-36) % Plt Count (150-400) K/uL Sodium (140-148) mmol/L Potassium (3.6-5.2) mmol/L Chloride (100-108) mmol/L Carbon Dioxide (21-32) mmol/L Anion Gap (5.0-14.0) mmol/L BUN (7-18) mg/dL Creatinine (0.6-1.0) mg/dL Est Cr Clr Drug Dosing mL/min Estimated GFR (MDRD) (>60) Glucose (74-106) mg/dL POC Glucose 245 H 245 H 218 H (74-106) mg/dL Calcium (8.5-10.1) mg/dL Total Bilirubin (0.2-1.0) mg/dL AST (15-37) U/L ALT (12-78) U/L Alkaline Phosphatase (46-116) U/L Total Protein (6.4-8.2) g/dL Albumin (3.4-5.0) g/dL Globulin (2.3-3.5) g/dL Albumin/Globulin Ratio (1.2-2.2) 03/05/21 03/05/21 03/05/21 Range/Units 04:30 04:30 07:17 WBC 7.2 (4.5-11.0) K/uL RBC 3.33 (3.30-5.50) M/uL Hgb 10.5 L (12.0-15.0) g/dL Hct 33.1 L (36.0-48.0) % MCV 99 H (80-98) fL MCH 32 H (27-31) pg MCHC 32 (32-36) % Plt Count 187 (150-400) K/uL Sodium 142 (140-148) mmol/L Potassium 3.5 L (3.6-5.2) mmol/L Chloride 107 (100-108) mmol/L Carbon Dioxide 22 (21-32) mmol/L Anion Gap 16.5 H (5.0-14.0) mmol/L BUN 19 H D (7-18) mg/dL Creatinine 1.7 H (0.6-1.0) mg/dL Est Cr Clr Drug Dosing 30.80 mL/min Estimated GFR (MDRD) 30 L (>60) Glucose 268 H (74-106) mg/dL POC Glucose 272 H (74-106) mg/dL Calcium 9.2 (8.5-10.1) mg/dL Total Bilirubin 0.3 (0.2-1.0) mg/dL AST 15 (15-37) U/L ALT 12 (12-78) U/L Alkaline Phosphatase 84 (46-116) U/L Total Protein 6.2 L (6.4-8.2) g/dL Albumin 2.0 L (3.4-5.0) g/dL Globulin 4.2 H (2.3-3.5) g/dL Albumin/Globulin Ratio 0.5 L (1.2-2.2) Result Diagrams: 03/05/21 04:30 03/05/21 04:30 Sepsis Event Note - Evaluation Sepsis Screening Result: No Definite Risk - Focused Exam Vital Signs: Vital Signs Temp Pulse Pulse Resp BP BP Pulse Ox 03/05/21 09:02 124/71 03/05/21 08:06 36.4 C 86 14 111/62 92 L 03/05/21 07:23 86 127/57 L 03/05/21 06:00 90 15 104/53 L 94 L 03/05/21 04:00 36.4 C 99 14 127/60 96 03/05/21 02:00 36.6 C 99 13 106/50 L 93 L 03/05/21 00:00 86 13 102/60 94 L - Problem List Review Problem List Initiated/Reviewed/Updated: Yes - My Orders Last 24 Hours: My Active Orders 03/04/21 18:30 Metoprolol Tartrate [Lopressor] 25 mg PO Q12H 03/05/21 08:15 Insulin NPH/Insulin Reg,Human [HumuLIN 70-30] 20 units SUBCUT BIDAC NS + KCl 20mEq/L [Normal Saline with 20 mEq KCl] 1,000 ml IV ASDIRECTED 03/05/21 09:30 Potassium Chloride 20 meq Lidocaine 1% [Xylocaine 1%] 2 ml Sodium Chloride 0.9% [Normal Saline] 100 ml IV Q2H 03/06/21 05:00 BASIC METABOLIC PANEL,BMP [CHEM] Timed MAGNESIUM [CHEM] Timed - Plan Plan:: ASSESSMENT AND PLAN - DIABETIC KETOACIDOSIS-2/2 acute pancreatitis. This has resolved. She back to her usual insulin regimen though we have increased the doses some. -Saline lock IV ACUTE PANCREATITIS-secondary to alcohol. Symptoms improving with minimal pain on exam. Lipase normal. -Consistent carbohydrate diet -Saline lock IV -Pain medication as needed TYPE 2 DIABETES MELLITUS-moderate elevation of blood sugars. -4 times daily glucometers -70/30 insulin 20 units subcu twice daily -Moderate dose sliding scale insulin ALCOHOL WITHDRAWAL-confusion slowly improving but has not resolved as of yet. -Alcohol withdrawal protocol -Start physical therapy MAINTENANCE ISSUES -DVT prophylaxis; Lovenox 40 mg subcu daily -GI prophylaxis; not indicated -Paul catheter; not indicated -Nutrition; consistent carbohydrates DISPOSITION-anticipate discharge to home after the hospital stay. Chirag Hopson MD
[2021-03-05] MEDS: Enoxaparin 40 MG/0.4 ML Syringe SUBCUT SCH (16:24)
[2021-03-05] MEDS: LORazepam 1 MG Tab PO SCH ×2 (17:18→19:57)
[2021-03-05] MEDS ORDERED: Dimethicone 20%/Zinc Oxide 25% 56 GM Spray Bottle TOP PRN (20:07)
[2021-03-06] MEDS: LORazepam 1 MG Tab PO SCH ×2 (00:45→09:00)
[2021-03-06] MEDS: Metoprolol Tartrate 25 MG Tab PO SCH ×2 (06:35→19:29)
[2021-03-06] MEDS: Insulin Lispro 100 Unit/ML 3 ML KwikPen SUBCUT SCH ×4 (07:14→20:01)
[2021-03-06] MEDS: Insulin NPH/Insulin Regular,Human 70-30 100 Units/ML 10 ML Vial SUBCUT SCH ×2 (07:16→16:30)
[2021-03-06] MEDS: Pantoprazole 40 MG Tab.CR PO SCH (07:21)
[2021-03-06] MEDS: Magnesium Sulfate/Water 2 GM in Premix Bag 1 BAG IV SCH ×2 (08:57→15:16)
[2021-03-06] MEDS: Clopidogrel 75 MG Tab PO SCH (08:58)
[2021-03-06] MEDS: atorvaSTATin 20 MG Tab PO SCH (08:58)
[2021-03-06] MEDS: Hydrochlorothiazide 25 MG Tab PO SCH (09:10)
[2021-03-06] MEDS: Lisinopril 20 MG Tab PO SCH (09:10)
[2021-03-06] MEDS ORDERED: LORazepam 0.5 MG Tab PO PRN (11:00)
[2021-03-06] MEDS ORDERED: oxyCODONE 5 MG Tab PO PRN (11:02)
--- NOTE | 2021-03-06 11:03 | PCM.PN ---
- General Info Date of Service: 03/06/21 Subjective Update: No acute events overnight. No fevers. Patient is more alert and interactive today. She is currently a heavy assist of 1 or mild to moderate assist from 2. She does not report any abdominal pain or nausea. Not much of an appetite this morning but did eat a decent supper. No recurrence of the atrial fibrillation. No fevers. Functional Status: Reports: Pain Controlled, Tolerating Diet - Review of Systems General: Reports: Weakness - Patient Data Vitals - Most Recent: Last Vital Signs Temp -12.4 C L 03/06/21 08:00 Pulse 76 03/06/21 10:00 Resp 15 03/06/21 10:00 BP 91/51 L 03/06/21 10:00 Pulse Ox 91 L 03/06/21 10:00 Weight - Most Recent: 82.69 kg I&O - Last 24 Hours: Intake & Output 03/05/21 03/06/21 03/06/21 22:59 06:59 14:59 Intake Total 1573 1034 Output Total 50 Balance 1573 984 Lab Results Last 24 Hours: Laboratory Results - last 24 hr 03/05/21 03/05/21 03/05/21 Range/Units 11:04 16:21 20:02 Sodium (140-148) mmol/L Potassium (3.6-5.2) mmol/L Chloride (100-108) mmol/L Carbon Dioxide (21-32) mmol/L Anion Gap (5.0-14.0) mmol/L BUN (7-18) mg/dL Creatinine (0.6-1.0) mg/dL Est Cr Clr Drug Dosing mL/min Estimated GFR (MDRD) (>60) Glucose (74-106) mg/dL POC Glucose 242 H 350 H 215 H (74-106) mg/dL Calcium (8.5-10.1) mg/dL Magnesium (1.8-2.4) mg/dL 03/06/21 03/06/21 Range/Units 06:29 10:49 Sodium 140 (140-148) mmol/L Potassium 4.0 (3.6-5.2) mmol/L Chloride 107 (100-108) mmol/L Carbon Dioxide 21 (21-32) mmol/L Anion Gap 11.6 (5.0-14.0) mmol/L BUN 24 H (7-18) mg/dL Creatinine 1.8 H (0.6-1.0) mg/dL Est Cr Clr Drug Dosing 29.09 mL/min Estimated GFR (MDRD) 28 L (>60) Glucose 327 H (74-106) mg/dL POC Glucose 267 H (74-106) mg/dL Calcium 8.7 (8.5-10.1) mg/dL Magnesium 1.5 L (1.8-2.4) mg/dL Med Orders - Current: Current Medications Acetaminophen (Acetaminophen 325 Mg Tab) 650 mg PO Q4H PRN PRN Reason: Pain (Mild 1-3)/fever Atorvastatin Calcium (Atorvastatin 20 Mg Tab) 80 mg PO DAILY [facility] Last Admin: 03/06/21 08:58 Dose: 80 mg Documented by: Clopidogrel Bisulfate (Clopidogrel 75 Mg Tab) 75 mg PO DAILY [facility] Last Admin: 03/06/21 08:58 Dose: 75 mg Documented by: Dextrose (Glucose Gel 15 Gm In 37.5 Gm Tube) 15 gm PO ONETIME PRN PRN Reason: Hypoglycemia Dextrose/Water (50% Dextrose In Water 50 Ml Syringe) 50 ml IV ONETIME PRN PRN Reason: Hypoglycemia Dimethicone/Zinc Oxide (Dimethicone 20%/Zinc Oxide 25% 56 Gm Scroggins Bottle) 0 gm TOP ASDIRECTED PRN PRN Reason: Rash Last Admin: 03/05/21 21:09 Dose: 1 dose Documented by: Enoxaparin Sodium (Enoxaparin 40 Mg/0.4 Ml Syringe) 40 mg SUBCUT Q24H [facility] Last Admin: 03/05/21 16:24 Dose: 40 mg Documented by: Hydrochlorothiazide (Hydrochlorothiazide 25 Mg Tab) 25 mg PO DAILY [facility] Last Admin: 03/06/21 09:10 Dose: 25 mg Documented by: Hydromorphone HCl (Hydromorphone 0.5 Mg/0.5 Ml Syringe) 0.5 mg IVPUSH Q2H PRN PRN Reason: Pain Last Admin: 03/05/21 03:25 Dose: 0.5 mg Documented by: Magnesium Sulfate 2 gm/ Premix 50 mls @ 25 mls/hr IV Q6H [facility] Stop: 03/06/21 16:59 Last Admin: 03/06/21 08:57 Dose: 25 mls/hr Documented by: Insulin Human Lispro (Insulin Lispro 100 Unit/Ml 3 Ml Kwikpen) 0 unit SUBCUT QIDACANDBED [facility]; Protocol Last Admin: 03/06/21 10:52 Dose: 6 units Documented by: Lisinopril (Lisinopril 20 Mg Tab) 20 mg PO DAILY [facility] Last Admin: 03/06/21 09:10 Dose: 20 mg Documented by: Metoprolol Tartrate (Metoprolol Tartrate 25 Mg Tab) 25 mg PO Q12H [facility] Last Admin: 03/06/21 06:35 Dose: Not Given Documented by: Ondansetron HCl (Ondansetron 4 Mg/2 Ml Sdv) 4 mg IV Q4H PRN PRN Reason: Nausea/Vomiting Pantoprazole Sodium (Pantoprazole 40 Mg Tab.Cr) 40 mg PO ACBREAKFAST [facility] Last Admin: 03/06/21 07:21 Dose: 40 mg Documented by: Polyethylene Glycol (Polyethylene Glycol 3350 Powder 17 Gm Packet) 17 gm PO DAILY PRN PRN Reason: Constipation Sodium Chloride (Sodium Chloride 0.9% 10 Ml Syringe) 10 ml FLUSH ASDIRECTED PRN PRN Reason: Keep Vein Open Discontinued Medications Dextrose/Water (50% Dextrose In Water 50 Ml Syringe) 50 ml IVPUSH ASDIRECTED PRN PRN Reason: Hypoglycemia Glucagon (Glucagon,Human Recombinant 1 Mg Vial) 1 mg IM ASDIRECTED PRN PRN Reason: Hypoglycemia Hydromorphone HCl (Hydromorphone 0.5 Mg/0.5 Ml Syringe) 0.5 mg IVPUSH ONETIME ONE Stop: 02/28/21 10:24 Last Admin: 02/28/21 10:40 Dose: 0.5 mg Documented by: Hydromorphone HCl (Hydromorphone 0.5 Mg/0.5 Ml Syringe) 0.5 mg IVPUSH ONETIME ONE Stop: 02/28/21 12:11 Last Admin: 02/28/21 14:12 Dose: 0.5 mg Documented by: Sodium Chloride (Normal Saline) 1,000 mls @ 999 mls/hr IV ASDIRECTED [facility] Last Admin: 02/28/21 10:29 Dose: 999 mls/hr Documented by: Sodium Chloride (Normal Saline) 1,000 mls @ 999 mls/hr IV ASDIRECTED [facility] Last Admin: 02/28/21 11:41 Dose: 999 mls/hr Documented by: Sodium Chloride (Normal Saline) 1,000 mls @ 500 mls/hr IV ASDIRECTED [facility] Insulin Regular in 0.9 % NACL (Myxredlin In Ns 100 Unit/100 Ml) 100 unit in 100 mls @ 8.301 mls/hr IV ASDIRECTED [facility]; Protocol Last Infusion: 03/01/21 05:58 Dose: 0.05 units/kg/hr, 4 mls/hr Documented by: Sodium Chloride (Normal Saline) 2,000 mls @ 500 mls/hr IV .CONTINUOUS PRN PRN Reason: Blood Glucose Last Admin: 02/28/21 14:24 Dose: 500 mls/hr Documented by: Dextrose/Sodium Chloride (Dextrose 5%-1/2 Ns) 1,000 mls @ 150 mls/hr IV .CONTINUOUS PRN PRN Reason: Blood Glucose Last Admin: 03/03/21 08:56 Dose: 150 mls/hr Documented by: Potassium Chloride 20 meq/ (Premix) 100 mls @ 50 mls/hr IV ASDIRECTED PRN PRN Reason: LOW POTASSIUM Last Admin: 03/03/21 05:24 Dose: 50 mls/hr Documented by: Potassium Chloride 20 meq/ (Premix) 100 mls @ 50 mls/hr IV Q2H PRN PRN Reason: Hypokalemia Potassium Chloride 20 meq/ (Premix) 100 mls @ 50 mls/hr IV Q2H PRN PRN Reason: Hypokalemia Magnesium Sulfate (Magnesium Sulfate In Water 2 Gm/50 Ml) 50 mls @ 25 mls/hr IV ONETIME PRN PRN Reason: low magnesium Last Admin: 02/28/21 20:04 Dose: 25 mls/hr Documented by: Sodium Phosphate 60 mmole/ (Sodium Chloride) 270 mls @ 62.5 mls/hr IV ONETIME PRN PRN Reason: Low phophorus Insulin Regular in 0.9 % NACL (Myxredlin In Ns 100 Unit/100 Ml) 100 mls @ 8.301 mls/hr IV ASDIRECTED [facility]ARA; Protocol Last Infusion: 03/02/21 12:59 Dose: 0.07 units/kg/hr, 6 mls/hr Documented by: Potassium Chloride 20 meq/Lidocaine HCl 2 ml/ Sodium Chloride 112 mls @ 56 mls/hr IV ONETIME ONE Stop: 03/01/21 10:59 Last Admin: 03/01/21 08:50 Dose: 56 mls/hr Documented by: Potassium Chloride 20 meq/Lidocaine HCl 2 ml/ Sodium Chloride 112 mls @ 56 mls/hr IV ONETIME ONE Stop: 03/01/21 13:59 Last Admin: 03/01/21 12:01 Dose: 56 mls/hr Documented by: Potassium Chloride 20 meq/Lidocaine HCl 2 ml/ Sodium Chloride 112 mls @ 56 mls/hr IV ONETIME ONE Stop: 03/01/21 17:59 Last Admin: 03/01/21 16:03 Dose: 56 mls/hr Documented by: Potassium Phosphate (Potassium Phos In Ns 15 Mmol/250 Ml) 250 mls @ 83.333 mls/hr IV ONETIME ONE Stop: 03/01/21 22:40 Last Admin: 03/01/21 20:03 Dose: 83.333 mls/hr Documented by: Potassium Phosphate (Potassium Phos In Ns 15 Mmol/250 Ml) 250 mls @ 83.333 mls/hr IV ONETIME ONE Stop: 03/02/21 01:59 Last Admin: 03/01/21 23:07 Dose: 83.333 mls/hr Documented by: Insulin Regular in 0.9 % NACL (Myxredlin In Ns 100 Unit/100 Ml) 100 mls @ 8.46 mls/hr IV ASDIRECTED [facility]; Protocol Last Infusion: 03/03/21 13:57 Dose: 0.06 units/kg/hr, 5 mls/hr Documented by: Potassium Chloride 20 meq/Lidocaine HCl 2 ml/ Sodium Chloride 112 mls @ 56 mls/hr IV ONETIME ONE Stop: 03/02/21 11:59 Last Admin: 03/02/21 09:43 Dose: 56 mls/hr Documented by: Magnesium Sulfate 2 gm/ Premix 50 mls @ 25 mls/hr IV ONETIME ONE Stop: 03/02/21 11:59 Last Admin: 03/02/21 09:44 Dose: 25 mls/hr Documented by: Potassium Chloride 20 meq/Lidocaine HCl 2 ml/ Sodium Chloride 112 mls @ 56 mls/hr IV ONETIME ONE Stop: 03/02/21 13:59 Last Admin: 03/02/21 11:47 Dose: 56 mls/hr Documented by: Potassium Chloride 20 meq/Lidocaine HCl 2 ml/ Sodium Chloride 112 mls @ 56 mls/hr IV ONETIME ONE Stop: 03/02/21 16:29 Last Admin: 03/02/21 14:34 Dose: 56 mls/hr Documented by: Potassium Chloride 20 meq/Lidocaine HCl 2 ml/ Sodium Chloride 112 mls @ 56 mls/hr IV ONETIME ONE Stop: 03/03/21 13:59 Last Admin: 03/03/21 11:34 Dose: 56 mls/hr Documented by: Potassium Chloride/Sodium Chloride (Normal Saline With 20 Meq Kcl) 1,000 mls @ 75 mls/hr IV ASDIRECTED [facility] Last Admin: 03/05/21 23:17 Dose: 75 mls/hr Documented by: Potassium Chloride 20 meq/Lidocaine HCl 2 ml/ Sodium Chloride 112 mls @ 56 mls/hr IV Q2H [facility] Stop: 03/05/21 13:29 Last Infusion: 03/05/21 15:15 Dose: Infused Documented by: Insulin Human Isoph/Insulin Regular (Insulin Nph/Insulin Regular,Human 70-30 100 Units/Ml 10 Ml Vial) 15 units SUBCUT BID [facility] Last Admin: 03/04/21 21:08 Dose: 15 units Documented by: Insulin Human Isoph/Insulin Regular (Insulin Nph/Insulin Regular,Human 70-30 100 Units/Ml 10 Ml Vial) [facility] Last Admin: 03/06/21 07:16 Dose: 20 unit Documented by: Insulin Human Regular (Insulin Regular, Human 100 Units/Ml 3 Ml Vial) 3 unit IVPUSH ONETIME ONE Stop: 02/28/21 11:13 Last Admin: 02/28/21 11:53 Dose: 3 units Documented by: Insulin Human Regular (Insulin Regular, Human 100 Units/Ml 3 Ml Vial) 3 unit SUBCUT ONETIME ONE Stop: 02/28/21 11:14 Last Admin: 02/28/21 11:54 Dose: 3 unit Documented by: Lidocaine HCl (Lidocaine 1% 5 Ml Sdv) 2 ml INJECT ONETIME ONE Stop: 02/28/21 20:10 Last Admin: 02/28/21 20:28 Dose: 2 ml Documented by: Lidocaine HCl (Lidocaine 1% 5 Ml Sdv) Confirm Administered Dose 5 ml .ROUTE .STK-MED ONE Stop: 02/28/21 20:16 Last Admin: 02/28/21 20:28 Dose: Not Given Documented by: Lidocaine HCl (Lidocaine 1% 5 Ml Sdv) 2 ml INJECT ONETIME ONE Stop: 03/01/21 03:49 Last Admin: 03/01/21 03:53 Dose: 2 ml Documented by: Lidocaine HCl (Lidocaine 1% 5 Ml Sdv) Confirm Administered Dose 5 ml .ROUTE .STK-MED ONE Stop: 03/01/21 03:50 Last Admin: 03/01/21 03:53 Dose: Not Given Documented by: Lidocaine HCl (Lidocaine 1% 5 Ml Sdv) 2 ml INJECT ONETIME ONE Stop: 03/02/21 05:52 Last Admin: 03/02/21 06:03 Dose: 2 ml Documented by: Lidocaine HCl (Lidocaine 1% 5 Ml Sdv) 2 ml INJECT ONETIME ONE Stop: 03/02/21 18:09 Last Admin: 03/02/21 18:34 Dose: 2 ml Documented by: Lidocaine HCl (Lidocaine 1% 5 Ml Sdv) 2 ml INJECT ONETIME ONE Stop: 03/03/21 01:53 Last Admin: 03/03/21 01:54 Dose: 2 ml Documented by: Lidocaine HCl (Lidocaine 1% 5 Ml Sdv) Confirm Administered Dose 5 ml .ROUTE .STK-MED ONE Stop: 03/03/21 01:53 Last Admin: 03/03/21 01:56 Dose: Not Given Documented by: Lidocaine HCl (Lidocaine 1% 5 Ml Sdv) 2 ml INJECT ONETIME ONE Stop: 03/03/21 05:13 Last Admin: 03/03/21 05:27 Dose: 2 ml Documented by: Lorazepam (Lorazepam 2 Mg/Ml Sdv) 0 mg IV ASDIRECTED [facility]; Protocol Last Admin: 03/05/21 02:11 Dose: 1 mg Documented by: Lorazepam (Lorazepam 1 Mg Tab) 0 mg PO ASDIRECTED [facility]; Protocol Last Admin: 03/06/21 09:00 Dose: 1 mg Documented by: Metoprolol Tartrate (Metoprolol Tartrate 25 Mg Tab) Confirm Administered Dose 25 mg .ROUTE .STK-MED ONE Stop: 03/04/21 18:29 Last Admin: 03/04/21 18:33 Dose: Not Given Documented by: Ondansetron HCl (Ondansetron 4 Mg/2 Ml Sdv) 4 mg IVPUSH ONETIME ONE Stop: 02/28/21 10:24 Last Admin: 02/28/21 10:35 Dose: 4 mg Documented by: Potassium Chloride (Potassium Chloride 10% 20 Meq/15 Ml Soln 15 Ml Ud Cup) 20 meq PO NOW PRN PRN Reason: Hypokalemia Last Admin: 03/01/21 17:24 Dose: 20 meq Documented by: Potassium Chloride (Potassium Chloride 10% 20 Meq/15 Ml Soln 15 Ml Ud Cup) 40 meq PO NOW PRN PRN Reason: Hypokalemia Last Admin: 03/02/21 03:49 Dose: 40 meq Documented by: Potassium Chloride (Potassium Chloride 10% 20 Meq/15 Ml Soln 15 Ml Ud Cup) 40 meq PO Q2H PRN PRN Reason: Hypokalemia - Exam Quality Assessment: No: Supplemental Oxygen General: Alert, Oriented, Cooperative, No Acute Distress Lungs: Clear to Auscultation, Normal Respiratory Effort Cardiovascular: Regular Rate, Regular Rhythm GI/Abdominal Exam: Normal Bowel Sounds, Soft, Non-Tender, No Distention Extremities: No Pedal Edema. No: Increased Warmth Skin: Warm, Dry Psy/Mental Status: Alert, Normal Affect - Patient Data Lab Results Last 24 hrs: Laboratory Results - last 24 hr 03/05/21 03/05/21 03/05/21 Range/Units 11:04 16:21 20:02 Sodium (140-148) mmol/L Potassium (3.6-5.2) mmol/L Chloride (100-108) mmol/L Carbon Dioxide (21-32) mmol/L Anion Gap (5.0-14.0) mmol/L BUN (7-18) mg/dL Creatinine (0.6-1.0) mg/dL Est Cr Clr Drug Dosing mL/min Estimated GFR (MDRD) (>60) Glucose (74-106) mg/dL POC Glucose 242 H 350 H 215 H (74-106) mg/dL Calcium (8.5-10.1) mg/dL Magnesium (1.8-2.4) mg/dL 03/06/21 03/06/21 Range/Units 06:29 10:49 Sodium 140 (140-148) mmol/L Potassium 4.0 (3.6-5.2) mmol/L Chloride 107 (100-108) mmol/L Carbon Dioxide 21 (21-32) mmol/L Anion Gap 11.6 (5.0-14.0) mmol/L BUN 24 H (7-18) mg/dL Creatinine 1.8 H (0.6-1.0) mg/dL Est Cr Clr Drug Dosing 29.09 mL/min Estimated GFR (MDRD) 28 L (>60) Glucose 327 H (74-106) mg/dL POC Glucose 267 H (74-106) mg/dL Calcium 8.7 (8.5-10.1) mg/dL Magnesium 1.5 L (1.8-2.4) mg/dL Result Diagrams: 03/05/21 04:30 03/06/21 06:29 Sepsis Event Note - Evaluation Sepsis Screening Result: No Definite Risk - Focused Exam Vital Signs: Vital Signs Temp Pulse Resp BP BP Pulse Ox 03/06/21 10:00 76 15 91/51 L 91 L 03/06/21 09:10 119/72 03/06/21 08:00 -12.4 C L 74 12 100/58 L 93 L 03/06/21 06:00 82 15 111/59 L 99 03/06/21 04:00 35.6 C L 95 16 109/63 94 L 03/06/21 01:36 84 15 104/45 L 93 L 03/06/21 00:00 82 11 L 119/54 L 93 L - Problem List Review Problem List Initiated/Reviewed/Updated: Yes - My Orders Last 24 Hours: My Active Orders 03/05/21 12:52 PT Evaluation and Treatment [CONS] Routine 03/05/21 20:07 Dimethicone/Zinc Oxide [Rash Relief-Zinc Oxide Scroggins] 0 gm TOP ASDIRECTED PRN 03/06/21 09:00 Magnesium Sulfate/Water [Magnesium Sulfate in Water 2 GM/50 ML] 2 gm Premix Bag 1 bag IV Q6H 03/06/21 11:00 Transfer Patient (Change bed) [ADT] Routine LORazepam [Ativan] 0.5 mg PO Q4H PRN Convert IV to Saline Lock [OM.PC] Routine 03/06/21 11:01 OT Evaluation and Treatment [CONS] Routine 03/06/21 11:02 Discontinue Telemetry Monitoring [Cardiac Monitoring Discontinue] [RC] Click to Edit oxyCODONE 5 mg PO Q4H PRN 03/06/21 16:30 Insulin NPH/Insulin Reg,Human [HumuLIN 70-30] 30 units SUBCUT BIDAC - Plan Plan:: ASSESSMENT AND PLAN - DIABETIC KETOACIDOSIS-2/2 acute pancreatitis. This has resolved. -Saline lock IV ACUTE PANCREATITIS-secondary to alcohol. No abdominal pain. Tolerating her diet. -Consistent carbohydrate diet -Saline lock IV -Pain medication as needed TYPE 2 DIABETES MELLITUS-moderate elevation of blood sugars despite increases in her insulin. -4 times daily glucometers -Increase 70/30 insulin to 30 units subcu twice daily -Moderate dose sliding scale insulin ALCOHOL WITHDRAWAL-confusion steadily improving. Weak but otherwise seems to be doing okay. -Physical and Occupational Therapy -Discussed dangers of ongoing alcohol use and encourage cessation when she has cleared a little further MAINTENANCE ISSUES -DVT prophylaxis; enoxaparin -GI prophylaxis; not indicated -Paul catheter; not indicated -Nutrition; consistent carbohydrates DISPOSITION-anticipate discharge to home after the hospital stay. Chirag Hopson MD
[2021-03-06] MEDS: Enoxaparin 40 MG/0.4 ML Syringe SUBCUT SCH (16:44)
[2021-03-07] MEDS: Metoprolol Tartrate 25 MG Tab PO SCH (06:20)
[2021-03-07] MEDS: Insulin Lispro 100 Unit/ML 3 ML KwikPen SUBCUT SCH (07:47)
[2021-03-07] MEDS: Insulin NPH/Insulin Regular,Human 70-30 100 Units/ML 10 ML Vial SUBCUT SCH (09:05)
[2021-03-07] MEDS: Pantoprazole 40 MG Tab.CR PO SCH (09:07)
[2021-03-07] MEDS: Hydrochlorothiazide 25 MG Tab PO SCH (09:18)
[2021-03-07] MEDS: atorvaSTATin 20 MG Tab PO SCH (09:21)
[2021-03-07] MEDS: Lisinopril 20 MG Tab PO SCH (09:22)
[2021-03-07] MEDS: Clopidogrel 75 MG Tab PO SCH (09:22)
--- NOTE | 2021-03-07 09:58 | PCM.PN ---
- General Info Date of Service: 03/07/21 Functional Status: Reports: Pain Controlled, Tolerating Diet - Review of Systems General: Reports: Weakness Gastrointestinal: Denies: Abdominal Pain - Patient Data Vitals - Most Recent: Last Vital Signs Temp 36.4 C 03/07/21 08:49 Pulse 2 L 03/07/21 08:49 Resp 16 03/07/21 08:49 BP 110/72 03/07/21 09:22 Pulse Ox 95 03/07/21 08:49 Weight - Most Recent: 85.094 kg I&O - Last 24 Hours: Intake & Output 03/06/21 03/07/21 03/07/21 22:59 06:59 14:59 Intake Total 325 Balance 325 Lab Results Last 24 Hours: Laboratory Results - last 24 hr 03/06/21 03/06/21 03/06/21 Range/Units 10:49 16:27 20:00 POC Glucose 267 H 316 H 229 H (74-106) mg/dL 03/07/21 Range/Units 07:17 POC Glucose 235 H (74-106) mg/dL Med Orders - Current: Current Medications Acetaminophen (Acetaminophen 325 Mg Tab) 650 mg PO Q4H PRN PRN Reason: Pain (Mild 1-3)/fever Last Admin: 03/07/21 02:45 Dose: 650 mg Documented by: Atorvastatin Calcium (Atorvastatin 20 Mg Tab) 80 mg PO DAILY COUNT INCLUDES THE [facility] Last Admin: 03/07/21 09:21 Dose: 80 mg Documented by: Clopidogrel Bisulfate (Clopidogrel 75 Mg Tab) 75 mg PO DAILY COUNT INCLUDES THE [facility] Last Admin: 03/07/21 09:22 Dose: 75 mg Documented by: Dextrose (Glucose Gel 15 Gm In 37.5 Gm Tube) 15 gm PO ONETIME PRN PRN Reason: Hypoglycemia Dextrose/Water (50% Dextrose In Water 50 Ml Syringe) 50 ml IV ONETIME PRN PRN Reason: Hypoglycemia Dimethicone/Zinc Oxide (Dimethicone 20%/Zinc Oxide 25% 56 Gm Peck Bottle) 0 gm TOP ASDIRECTED PRN PRN Reason: Rash Last Admin: 03/05/21 21:09 Dose: 1 dose Documented by: Enoxaparin Sodium (Enoxaparin 40 Mg/0.4 Ml Syringe) 40 mg SUBCUT Q24H COUNT INCLUDES THE [facility] Last Admin: 03/06/21 16:44 Dose: 40 mg Documented by: Hydrochlorothiazide (Hydrochlorothiazide 25 Mg Tab) 25 mg PO DAILY COUNT INCLUDES THE [facility] Last Admin: 03/07/21 09:18 Dose: 25 mg Documented by: Hydromorphone HCl (Hydromorphone 0.5 Mg/0.5 Ml Syringe) 0.5 mg IVPUSH Q2H PRN PRN Reason: Pain Last Admin: 03/05/21 03:25 Dose: 0.5 mg Documented by: Insulin Human Isoph/Insulin Regular (Insulin Nph/Insulin Regular,Human 70-30 100 Units/Ml 10 Ml Vial) 30 units SUBCUT BIDAC COUNT INCLUDES THE [facility] Last Admin: 03/07/21 09:05 Dose: 30 units Documented by: Insulin Human Lispro (Insulin Lispro 100 Unit/Ml 3 Ml Kwikpen) 0 unit SUBCUT QIDACANDBED COUNT INCLUDES THE [facility]; Protocol Last Admin: 03/07/21 07:47 Dose: 4 units Documented by: Lisinopril (Lisinopril 20 Mg Tab) 20 mg PO DAILY COUNT INCLUDES THE [facility] Last Admin: 03/07/21 09:22 Dose: 20 mg Documented by: Lorazepam (Lorazepam 0.5 Mg Tab) 0.5 mg PO Q4H PRN PRN Reason: Anxiety Last Admin: 03/07/21 02:45 Dose: 0.5 mg Documented by: Metoprolol Tartrate (Metoprolol Tartrate 25 Mg Tab) 25 mg PO Q12H COUNT INCLUDES THE [facility] Last Admin: 03/07/21 06:20 Dose: 25 mg Documented by: Ondansetron HCl (Ondansetron 4 Mg/2 Ml Sdv) 4 mg IV Q4H PRN PRN Reason: Nausea/Vomiting Oxycodone HCl (Oxycodone 5 Mg Tab) 5 mg PO Q4H PRN PRN Reason: Pain (moderate 4-6) Pantoprazole Sodium (Pantoprazole 40 Mg Tab.Cr) 40 mg PO ACBREAKFAST COUNT INCLUDES THE [facility] Last Admin: 03/07/21 09:07 Dose: 40 mg Documented by: Polyethylene Glycol (Polyethylene Glycol 3350 Powder 17 Gm Packet) 17 gm PO DAILY PRN PRN Reason: Constipation Sodium Chloride (Sodium Chloride 0.9% 10 Ml Syringe) 10 ml FLUSH ASDIRECTED PRN PRN Reason: Keep Vein Open Discontinued Medications Dextrose/Water (50% Dextrose In Water 50 Ml Syringe) 50 ml IVPUSH ASDIRECTED [place] N PRN Reason: Hypoglycemia Glucagon (Glucagon,Human Recombinant 1 Mg Vial) 1 mg IM ASDIRECTED PRN PRN Reason: Hypoglycemia Hydromorphone HCl (Hydromorphone 0.5 Mg/0.5 Ml Syringe) 0.5 mg IVPUSH ONETIME ONE Stop: 02/28/21 10:24 Last Admin: 02/28/21 10:40 Dose: 0.5 mg Documented by: Hydromorphone HCl (Hydromorphone 0.5 Mg/0.5 Ml Syringe) 0.5 mg IVPUSH ONETIME ONE Stop: 02/28/21 12:11 Last Admin: 02/28/21 14:12 Dose: 0.5 mg Documented by: Sodium Chloride (Normal Saline) 1,000 mls @ 999 mls/hr IV ASDIRECTED SARA Last Admin: 02/28/21 10:29 Dose: 999 mls/hr Documented by: Sodium Chloride (Normal Saline) 1,000 mls @ 999 mls/hr IV ASDIRECTED SARA Last Admin: 02/28/21 11:41 Dose: 999 mls/hr Documented by: Sodium Chloride (Normal Saline) 1,000 mls @ 500 mls/hr IV ASDIRECTED SARA Insulin Regular in 0.9 % NACL (Myxredlin In Ns 100 Unit/100 Ml) 100 unit in 100 mls @ 8.301 mls/hr IV ASDIRECTED SARA; Protocol Last Infusion: 03/01/21 05:58 Dose: 0.05 units/kg/hr, 4 mls/hr Documented by: Sodium Chloride (Normal Saline) 2,000 mls @ 500 mls/hr IV .CONTINUOUS PRN PRN Reason: Blood Glucose Last Admin: 02/28/21 14:24 Dose: 500 mls/hr Documented by: Dextrose/Sodium Chloride (Dextrose 5%-1/2 Ns) 1,000 mls @ 150 mls/hr IV .CONTINUOUS PRN PRN Reason: Blood Glucose Last Admin: 03/03/21 08:56 Dose: 150 mls/hr Documented by: Potassium Chloride 20 meq/ (Premix) 100 mls @ 50 mls/hr IV ASDIRECTED PRN PRN Reason: LOW POTASSIUM Last Admin: 03/03/21 05:24 Dose: 50 mls/hr Documented by: Potassium Chloride 20 meq/ (Premix) 100 mls @ 50 mls/hr IV Q2H PRN PRN Reason: Hypokalemia Potassium Chloride 20 meq/ (Premix) 100 mls @ 50 mls/hr IV Q2H PRN PRN Reason: Hypokalemia Magnesium Sulfate (Magnesium Sulfate In Water 2 Gm/50 Ml) 50 mls @ 25 mls/hr IV ONETIME PRN PRN Reason: low magnesium Last Admin: 02/28/21 20:04 Dose: 25 mls/hr Documented by: Sodium Phosphate 60 mmole/ (Sodium Chloride) 270 mls @ 62.5 mls/hr IV ONETIME PRN PRN Reason: Low phophorus Insulin Regular in 0.9 % NACL (Myxredlin In Ns 100 Unit/100 Ml) 100 mls @ 8.301 mls/hr IV ASDIRECTED COUNT INCLUDES THE [facility]; Protocol Last Infusion: 03/02/21 12:59 Dose: 0.07 units/kg/hr, 6 mls/hr Documented by: Potassium Chloride 20 meq/Lidocaine HCl 2 ml/ Sodium Chloride 112 mls @ 56 mls/hr IV ONETIME ONE Stop: 03/01/21 10:59 Last Admin: 03/01/21 08:50 Dose: 56 mls/hr Documented by: Potassium Chloride 20 meq/Lidocaine HCl 2 ml/ Sodium Chloride 112 mls @ 56 mls/hr IV ONETIME ONE Stop: 03/01/21 13:59 Last Admin: 03/01/21 12:01 Dose: 56 mls/hr Documented by: Potassium Chloride 20 meq/Lidocaine HCl 2 ml/ Sodium Chloride 112 mls @ 56 mls/hr IV ONETIME ONE Stop: 03/01/21 17:59 Last Admin: 03/01/21 16:03 Dose: 56 mls/hr Documented by: Potassium Phosphate (Potassium Phos In Ns 15 Mmol/250 Ml) 250 mls @ 83.333 mls/hr IV ONETIME ONE Stop: 03/01/21 22:40 Last Admin: 03/01/21 20:03 Dose: 83.333 mls/hr Documented by: Potassium Phosphate (Potassium Phos In Ns 15 Mmol/250 Ml) 250 mls @ 83.333 mls/hr IV ONETIME ONE Stop: 03/02/21 01:59 Last Admin: 03/01/21 23:07 Dose: 83.333 mls/hr Documented by: Insulin Regular in 0.9 % NACL (Myxredlin In Ns 100 Unit/100 Ml) 100 mls @ 8.46 mls/hr IV ASDIRECTED COUNT INCLUDES THE [facility]; Protocol Last Infusion: 03/03/21 13:57 Dose: 0.06 units/kg/hr, 5 mls/hr Documented by: Potassium Chloride 20 meq/Lidocaine HCl 2 ml/ Sodium Chloride 112 mls @ 56 mls/hr IV ONETIME ONE Stop: 03/02/21 11:59 Last Admin: 03/02/21 09:43 Dose: 56 mls/hr Documented by: Magnesium Sulfate 2 gm/ Premix 50 mls @ 25 mls/hr IV ONETIME ONE Stop: 03/02/21 11:59 Last Admin: 03/02/21 09:44 Dose: 25 mls/hr Documented by: Potassium Chloride 20 meq/Lidocaine HCl 2 ml/ Sodium Chloride 112 mls @ 56 mls/hr IV ONETIME ONE Stop: 03/02/21 13:59 Last Admin: 03/02/21 11:47 Dose: 56 mls/hr Documented by: Potassium Chloride 20 meq/Lidocaine HCl 2 ml/ Sodium Chloride 112 mls @ 56 mls/hr IV ONETIME ONE Stop: 03/02/21 16:29 Last Admin: 03/02/21 14:34 Dose: 56 mls/hr Documented by: Potassium Chloride 20 meq/Lidocaine HCl 2 ml/ Sodium Chloride 112 mls @ 56 mls/hr IV ONETIME ONE Stop: 03/03/21 13:59 Last Admin: 03/03/21 11:34 Dose: 56 mls/hr Documented by: Potassium Chloride/Sodium Chloride (Normal Saline With 20 Meq Kcl) 1,000 mls @ 75 mls/hr IV ASDIRECTED COUNT INCLUDES THE [facility] Last Admin: 03/05/21 23:17 Dose: 75 mls/hr Documented by: Potassium Chloride 20 meq/Lidocaine HCl 2 ml/ Sodium Chloride 112 mls @ 56 mls/hr IV Q2H SARA Stop: 03/05/21 13:29 Last Infusion: 03/05/21 15:15 Dose: Infused Documented by: Magnesium Sulfate 2 gm/ Premix 50 mls @ 25 mls/hr IV Q6H COUNT INCLUDES THE [facility] Stop: 03/06/21 16:59 Last Admin: 03/06/21 15:16 Dose: 25 mls/hr Documented by: Insulin Human Isoph/Insulin Regular (Insulin Nph/Insulin Regular,Human 70-30 100 Units/Ml 10 Ml Vial) 15 units SUBCUT BID COUNT INCLUDES THE [facility] Last Admin: 03/04/21 21:08 Dose: 15 units Documented by: Insulin Human Isoph/Insulin Regular (Insulin Nph/Insulin Regular,Human 70-30 100 Units/Ml 10 Ml Vial) [facility] Last Admin: 03/06/21 07:16 Dose: 20 unit Documented by: Insulin Human Regular (Insulin Regular, Human 100 Units/Ml 3 Ml Vial) 3 unit IVPUSH ONETIME ONE Stop: 02/28/21 11:13 Last Admin: 02/28/21 11:53 Dose: 3 units Documented by: Insulin Human Regular (Insulin Regular, Human 100 Units/Ml 3 Ml Vial) 3 unit SUBCUT ONETIME ONE Stop: 02/28/21 11:14 Last Admin: 02/28/21 11:54 Dose: 3 unit Documented by: Lidocaine HCl (Lidocaine 1% 5 Ml Sdv) 2 ml INJECT ONETIME ONE Stop: 02/28/21 20:10 Last Admin: 02/28/21 20:28 Dose: 2 ml Documented by: Lidocaine HCl (Lidocaine 1% 5 Ml Sdv) Confirm Administered Dose 5 ml .ROUTE .STK-MED ONE Stop: 02/28/21 20:16 Last Admin: 02/28/21 20:28 Dose: Not Given Documented by: Lidocaine HCl (Lidocaine 1% 5 Ml Sdv) 2 ml INJECT ONETIME ONE Stop: 03/01/21 03:49 Last Admin: 03/01/21 03:53 Dose: 2 ml Documented by: Lidocaine HCl (Lidocaine 1% 5 Ml Sdv) Confirm Administered Dose 5 ml .ROUTE .STK-MED ONE Stop: 03/01/21 03:50 Last Admin: 03/01/21 03:53 Dose: Not Given Documented by: Lidocaine HCl (Lidocaine 1% 5 Ml Sdv) 2 ml INJECT ONETIME ONE Stop: 03/02/21 05:52 Last Admin: 03/02/21 06:03 Dose: 2 ml Documented by: Lidocaine HCl (Lidocaine 1% 5 Ml Sdv) 2 ml INJECT ONETIME ONE Stop: 03/02/21 18:09 Last Admin: 03/02/21 18:34 Dose: 2 ml Documented by: Lidocaine HCl (Lidocaine 1% 5 Ml Sdv) 2 ml INJECT ONETIME ONE Stop: 03/03/21 01:53 Last Admin: 03/03/21 01:54 Dose: 2 ml Documented by: Lidocaine HCl (Lidocaine 1% 5 Ml Sdv) Confirm Administered Dose 5 ml .ROUTE .STK-MED ONE Stop: 03/03/21 01:53 Last Admin: 03/03/21 01:56 Dose: Not Given Documented by: Lidocaine HCl (Lidocaine 1% 5 Ml Sdv) 2 ml INJECT ONETIME ONE Stop: 03/03/21 05:13 Last Admin: 03/03/21 05:27 Dose: 2 ml Documented by: Lorazepam (Lorazepam 2 Mg/Ml Sdv) 0 mg IV ASDIRECTED SARA; Protocol Last Admin: 03/05/21 02:11 Dose: 1 mg Documented by: Lorazepam (Lorazepam 1 Mg Tab) 0 mg PO ASDIRECTED SARA; Protocol Last Admin: 03/06/21 09:00 Dose: 1 mg Documented by: Metoprolol Tartrate (Metoprolol Tartrate 25 Mg Tab) Confirm Administered Dose 25 mg .ROUTE .STK-MED ONE Stop: 03/04/21 18:29 Last Admin: 03/04/21 18:33 Dose: Not Given Documented by: Ondansetron HCl (Ondansetron 4 Mg/2 Ml Sdv) 4 mg IVPUSH ONETIME ONE Stop: 02/28/21 10:24 Last Admin: 02/28/21 10:35 Dose: 4 mg Documented by: Potassium Chloride (Potassium Chloride 10% 20 Meq/15 Ml Soln 15 Ml Ud Cup) 20 meq PO NOW PRN PRN Reason: Hypokalemia Last Admin: 03/01/21 17:24 Dose: 20 meq Documented by: Potassium Chloride (Potassium Chloride 10% 20 Meq/15 Ml Soln 15 Ml Ud Cup) 40 meq PO NOW PRN PRN Reason: Hypokalemia Last Admin: 03/02/21 03:49 Dose: 40 meq Documented by: Potassium Chloride (Potassium Chloride 10% 20 Meq/15 Ml Soln 15 Ml Ud Cup) 40 meq PO Q2H PRN PRN Reason: Hypokalemia - Exam Quality Assessment: No: Supplemental Oxygen General: Alert, Cooperative, No Acute Distress Lungs: Normal Respiratory Effort GI/Abdominal Exam: Soft, No Distention Extremities: No Pedal Edema. No: Joint Swelling, Increased Warmth Skin: Warm, Dry Psy/Mental Status: Alert, Normal Affect - Patient Data Lab Results Last 24 hrs: Laboratory Results - last 24 hr 03/06/21 03/06/21 03/06/21 Range/Units 10:49 16:27 20:00 POC Glucose 267 H 316 H 229 H (74-106) mg/dL 03/07/21 Range/Units 07:17 POC Glucose 235 H (74-106) mg/dL Result Diagrams: 03/05/21 04:30 03/06/21 06:29 Sepsis Event Note - Evaluation Sepsis Screening Result: No Definite Risk - Focused Exam Vital Signs: Vital Signs Temp Pulse Pulse Resp BP BP Pulse Ox 03/07/21 09:22 110/72 03/07/21 08:49 36.4 C 2 L 16 110/72 95 03/07/21 06:20 76 132/73 03/07/21 06:00 36.4 C 83 15 132/73 95 03/07/21 01:00 36.4 C 85 14 116/69 95 - My Orders Last 24 Hours: My Active Orders 03/06/21 11:00 Transfer Patient (Change bed) [ADT] Routine LORazepam [Ativan] 0.5 mg PO Q4H PRN Convert IV to Saline Lock [OM.PC] Routine 03/06/21 11:01 OT Evaluation and Treatment [CONS] Routine 03/06/21 11:02 Discontinue Telemetry Monitoring [Cardiac Monitoring Discontinue] [RC] Click to Edit oxyCODONE 5 mg PO Q4H PRN 03/06/21 16:30 Insulin NPH/Insulin Reg,Human [HumuLIN 70-30] 30 units SUBCUT BIDAC - Plan Plan:: ASSESSMENT AND PLAN - DIABETIC KETOACIDOSIS-2/2 acute pancreatitis. This has resolved. -Saline lock IV ACUTE PANCREATITIS-secondary to alcohol. No abdominal pain. Tolerating her diet. -Consistent carbohydrate diet -Saline lock IV -Pain medication as needed TYPE 2 DIABETES MELLITUS-moderate elevation of blood sugars despite increases in her insulin. -4 times daily glucometers -Increase 70/30 insulin to 30 units subcu twice daily -Moderate dose sliding scale insulin ALCOHOL WITHDRAWAL-confusion steadily improving. Weak but otherwise seems to be doing okay. -Physical and Occupational Therapy -Discussed dangers of ongoing alcohol use and encourage cessation when she has cleared a little further MAINTENANCE ISSUES -DVT prophylaxis; enoxaparin -GI prophylaxis; not indicated -Paul catheter; not indicated -Nutrition; consistent carbohydrates DISPOSITION-anticipate discharge to home after the hospital stay. Chirag Hopson MD
--- NOTE | 2021-03-07 10:25 | PCM.DCSUM1 ---
Discharge Summary - Hospital Course Brief History: 70-year-old female with history of insulin-dependent diabetes and alcohol dependence who presented with progressive abdominal pain and nausea. Work-up in the emergency room suggested acute pancreatitis as well as evidence for diabetic ketoacidosis. She was admitted to the intensive care unit for further management. Diagnosis: Stroke: No - Discharge Data Discharge Date: 03/07/21 Discharge Disposition: Home, W Home Health Agency 06 Condition: Fair - Referral to Home Health Date of Face to Face Encounter: 03/07/21 Reason for Homebound Status: Acute weakness secondary to acute medical problems Primary Care Physician: Lacey Portillo MD Skilled Need: Physical therapy - Discharge Diagnosis/Problem(s) (1) Pancreatitis SNOMED Code(s): 72927396 ICD Code: K85.90 - ACUTE PANCREATITIS WITHOUT NECROSIS OR INFECTION, UNSP Status: Acute Qualifiers: Chronicity: acute Pancreatitis type: alcohol induced Acute pancreatitis complication: no infection or necrosis Qualified Code(s): K85.20 - Alcohol induced acute pancreatitis without necrosis or infection (2) Alcohol withdrawal delirium SNOMED Code(s): 3134007 ICD Code: F10.231 - ALCOHOL DEPENDENCE WITH WITHDRAWAL DELIRIUM Status: Acute (3) Diabetic ketoacidosis SNOMED Code(s): 755963513, 016895088 ICD Code: E11.10 - TYPE 2 DIABETES MELLITUS WITH KETOACIDOSIS WITHOUT COMA Status: Acute Qualifiers: Diabetes mellitus type: type 2 Diabetes mellitus complication detail: without coma Qualified Code(s): E11.10 - Type 2 diabetes mellitus with ketoacidosis without coma (4) Type 2 diabetes mellitus SNOMED Code(s): 87928025 ICD Code: E11.9 - TYPE 2 DIABETES MELLITUS WITHOUT COMPLICATIONS Status: Chronic (5) CKD (chronic kidney disease), stage III SNOMED Code(s): 798577695 ICD Code: N18.30 - CHRONIC KIDNEY DISEASE, STAGE 3 UNSPECIFIED Status: Chronic Qualifiers: Chronic kidney disease stage 3 subtype: stage 3b (GFR 30-44) Qualified Code(s): N18.32 - Chronic kidney disease, stage 3b - Patient Summary/Data Consults: Consultations 02/28/21 13:11 Consult to Diabetic Nurse Specialist [CONS] Urgent Comment: Physician Instructions: 03/05/21 12:52 PT Evaluation and Treatment [CONS] Routine Please Evaluate and Treat. PT Reason for Consult: Strengthening This query below is only for informational purposes and is not editable. Admission Diagnosis/Problem: Ketoacidosis 03/06/21 11:01 OT Evaluation and Treatment [CONS] Routine Please Evaluate and Treat. OT Reason for Consult: ADL's This query below is only for informational purposes and is not editable. Admission Diagnosis/Problem: Ketoacidosis Hospital Course: Christel presented to the emergency room with progressive abdominal pain and nausea. Work-up in the emergency room revealed evidence for acute pancreatitis based on laboratory studies and CT scan imaging. She also had evidence for di abetic ketoacidosis with significant hyperglycemia and metabolic acidosis. She was started on IV insulin as well as IV fluids and pain control. She was admitted to the intensive care unit for further management. Over the next couple of days we did see a trend down in her lipase. Her abdominal pain seem to be lessening. Her blood sugars and acidosis were slowly improving but very slow to resolve. It did take several days before the diabetic ketoacidosis did resolve. Over this time she had further improvement in her lipase and abdominal pain. Unfortunately several days into the hospital stay she developed confusion and hallucinations consistent with alcohol withdrawal. She was managed with lorazepam based on the [facility] protocol. She had a somewhat prolonged hypoactive delirium because of the alcohol withdrawal but this did eventually resolve as well. We have been able to advance her diet without any significant difficulties or increase in her pain. She has had no pain for the last several days. Blood sugars have remained moderately elevated despite increases in her home insulin dosing. We have increase this further by the time of discharge. She is weak but otherwise seems to be doing okay. She is alert, oriented and interactive now. Her feels that she is doing well enough that she is safe for management at home. He has help that can come in and assist him with her needs. He does understand that she continues to be weak but thinks that he can manage things at home. He was interested in adding home care for some physical therapy. I did review the alcohol use and my concerns that this led to the pancreatitis as well as the diabetic ketoacidosis and the alcohol withdrawal. Her reports that all of the alcohol has been removed from the home and they will no longer have alcohol in their home from this point forward. He feels comfortable taking her home at this time. She will have early follow-up scheduled. - Patient Instructions Diet: Diabetic Diet Activity: As Tolerated Showering/Bathing: May Shower Other/Special Instructions: 1. You were in the hospital for management of acute pancreatitis thought secondary to chronic alcohol use. Your condition has been improving following a period of nothing by mouth and IV fluid hydration. I recommend a soft and bland diet for the next several days before advancing towards your normal diabetic diet. 2. During the hospital stay you experienced alcohol withdrawal with significant confusion and lethargy. This has resolved at this point. You do remain weak. I have placed a referral to home health services to help provide physical therapy to improve your strength and endurance after hospital discharge. I would encourage you to cut down at the least and if not quit consuming alcohol. A safe amount of alcohol for a female is 1 ounce per day. 3. Continue your usual home medications with the exception of your insulin. Please increase this to 30 units twice daily with breakfast and supper. 4. Follow up with Dr. Lacey Portillo in 1 to 2 weeks - Discharge Plan *PRESCRIPTION DRUG MONITORING PROGRAM REVIEWED*: Not Applicable *COPY OF PRESCRIPTION DRUG MONITORING REPORT IN PATIENT JULIETH: Not Applicable Prescriptions/Med Rec: Insulin NPH Hum/Reg Insulin Hm [Novolin 70-30 Flexpen] 30 unit SQ BID #5 pen Home Medications: Home Meds Omeprazole 40 mg PO DAILY 11/10/18 [History] atorvaSTATin [Lipitor] 80 mg PO DAILY 11/10/18 [History] Clopidogrel Bisulfate [Clopidogrel] 75 mg PO DAILY 07/26/20 [History] Lisinopril/Hydrochlorothiazide [Lisinopril-Hctz 20-25 mg Tab] 1 each PO DAILY 07/26/20 [History] Dulaglutide [Trulicity] 0.75 mg SQ WEEKLY 03/04/21 [History] Insulin NPH Hum/Reg Insulin Hm [Novolin 70-30 Flexpen] 30 unit SQ BID #5 pen 03/07/21 [Rx] Oxygen Therapy Mode: Room Air Patient Handouts: Alcohol Abuse and Dependence Information, Adult, Acute Pancreatitis, [id number] Referrals: Lacey Portillo MD [Primary Care Provider] - (f/u hospital stay for acute pancreatitis, alcohol w/d) - Discharge Summary/Plan Comment DC Time >30 min.: Yes Total # of Minutes for Discharge Time: 35-counseling about diabetes management and alcohol use. - Patient Data Vitals - Most Recent: Last Vital Signs Temp 36.4 C 03/07/21 08:49 Pulse 2 L 03/07/21 08:49 Resp 16 03/07/21 08:49 BP 110/72 03/07/21 09:22 Pulse Ox 95 03/07/21 08:49 Weight - Most Recent: 85.094 kg I&O - Last 24 hours: Intake & Output 03/06/21 03/07/21 03/07/21 22:59 06:59 14:59 Intake Total 325 Balance 325 Lab Results - Last 24 hrs: Laboratory Results - last 24 hr 03/06/21 03/06/21 03/06/21 Range/Units 10:49 16:27 20:00 POC Glucose 267 H 316 H 229 H (74-106) mg/dL 03/07/21 Range/Units 07:17 POC Glucose 235 H (74-106) mg/dL Med Orders - Current: Current Medications Acetaminophen (Acetaminophen 325 Mg Tab) 650 mg PO Q4H PRN PRN Reason: Pain (Mild 1-3)/fever Last Admin: 03/07/21 02:45 Dose: 650 mg Documented by: Atorvastatin Calcium (Atorvastatin 20 Mg Tab) 80 mg PO DAILY [facility] Last Admin: 03/07/21 09:21 Dose: 80 mg Documented by: Clopidogrel Bisulfate (Clopidogrel 75 Mg Tab) 75 mg PO DAILY [facility] Last Admin: 03/07/21 09:22 Dose: 75 mg Documented by: Dextrose (Glucose Gel 15 Gm In 37.5 Gm Tube) 15 gm PO ONETIME PRN PRN Reason: Hypoglycemia Dextrose/Water (50% Dextrose In Water 50 Ml Syringe) 50 ml IV ONETIME PRN PRN Reason: Hypoglycemia Dimethicone/Zinc Oxide (Dimethicone 20%/Zinc Oxide 25% 56 Gm [place] Bottle) 0 gm TOP ASDIRECTED PRN PRN Reason: Rash Last Admin: 03/05/21 21:09 Dose: 1 dose Documented by: Enoxaparin Sodium (Enoxaparin 40 Mg/0.4 Ml Syringe) 40 mg SUBCUT Q24H [facility] Last Admin: 03/06/21 16:44 Dose: 40 mg Documented by: Hydrochlorothiazide (Hydrochlorothiazide 25 Mg Tab) 25 mg PO DAILY [facility] Last Admin: 03/07/21 09:18 Dose: 25 mg Documented by: Hydromorphone HCl (Hydromorphone 0.5 Mg/0.5 Ml Syringe) 0.5 mg IVPUSH Q2H PRN PRN Reason: Pain Last Admin: 03/05/21 03:25 Dose: 0.5 mg Documented by: Insulin Human Isoph/Insulin Regular (Insulin Nph/Insulin Regular,Human 70-30 100 Units/Ml 10 Ml Vial) 30 units SUBCUT BIDAC [facility] Last Admin: 03/07/21 09:05 Dose: 30 units Documented by: Insulin Human Lispro (Insulin Lispro 100 Unit/Ml 3 Ml Kwikpen) 0 unit SUBCUT QIDACANDBED [facility]; Protocol Last Admin: 03/07/21 07:47 Dose: 4 units Documented by: Lisinopril (Lisinopril 20 Mg Tab) 20 mg PO DAILY [facility] Last Admin: 03/07/21 09:22 Dose: 20 mg Documented by: Lorazepam (Lorazepam 0.5 Mg Tab) 0.5 mg PO Q4H PRN PRN Reason: Anxiety Last Admin: 03/07/21 02:45 Dose: 0.5 mg Documented by: Metoprolol Tartrate (Metoprolol Tartrate 25 Mg Tab) 25 mg PO Q12H [facility] Last Admin: 03/07/21 06:20 Dose: 25 mg Documented by: Ondansetron HCl (Ondansetron 4 Mg/2 Ml Sdv) 4 mg IV Q4H PRN PRN Reason: Nausea/Vomiting Oxycodone HCl (Oxycodone 5 Mg Tab) 5 mg PO Q4H PRN PRN Reason: Pain (moderate 4-6) Pantoprazole Sodium (Pantoprazole 40 Mg Tab.Cr) 40 mg PO ACBREAKFAST [facility] Last Admin: 03/07/21 09:07 Dose: 40 mg Documented by: Polyethylene Glycol (Polyethylene Glycol 3350 Powder 17 Gm Packet) 17 gm PO DAILY PRN PRN Reason: Constipation Sodium Chloride (Sodium Chloride 0.9% 10 Ml Syringe) 10 ml FLUSH ASDIRECTED PRN PRN Reason: Keep Vein Open Discontinued Medications Dextrose/Water (50% Dextrose In Water 50 Ml Syringe) 50 ml IVPUSH ASDIRECTED PRN PRN Reason: Hypoglycemia Glucagon (Glucagon,Human Recombinant 1 Mg Vial) 1 mg IM ASDIRECTED PRN PRN Reason: Hypoglycemia Hydromorphone HCl (Hydromorphone 0.5 Mg/0.5 Ml Syringe) 0.5 mg IVPUSH ONETIME ONE Stop: 02/28/21 10:24 Last Admin: 02/28/21 10:40 Dose: 0.5 mg Documented by: Hydromorphone HCl (Hydromorphone 0.5 Mg/0.5 Ml Syringe) 0.5 mg IVPUSH ONETIME ONE Stop: 02/28/21 12:11 Last Admin: 02/28/21 14:12 Dose: 0.5 mg Documented by: Sodium Chloride (Normal Saline) 1,000 mls @ 999 mls/hr IV ASDIRECTED [facility] Last Admin: 02/28/21 10:29 Dose: 999 mls/hr Documented by: Sodium Chloride (Normal Saline) 1,000 mls @ 999 mls/hr IV ASDIRECTED [facility] Last Admin: 02/28/21 11:41 Dose: 999 mls/hr Documented by: Sodium Chloride (Normal Saline) 1,000 mls @ 500 mls/hr IV ASDIRECTED [facility] Insulin Regular in 0.9 % NACL (Myxredlin In Ns 100 Unit/100 Ml) 100 unit in 100 mls @ 8.301 mls/hr IV ASDIRECTED [facility]; Protocol Last Infusion: 03/01/21 05:58 Dose: 0.05 units/kg/hr, 4 mls/hr Documented by: Sodium Chloride (Normal Saline) 2,000 mls @ 500 mls/hr IV .CONTINUOUS PRN PRN Reason: Blood Glucose Last Admin: 02/28/21 14:24 Dose: 500 mls/hr Documented by: Dextrose/Sodium Chloride (Dextrose 5%-1/2 Ns) 1,000 mls @ 150 mls/hr IV .CONTINUOUS PRN PRN Reason: Blood Glucose Last Admin: 03/03/21 08:56 Dose: 150 mls/hr Documented by: Potassium Chloride 20 meq/ (Premix) 100 mls @ 50 mls/hr IV ASDIRECTED PRN PRN Reason: LOW POTASSIUM Last Admin: 03/03/21 05:24 Dose: 50 mls/hr Documented by: Potassium Chloride 20 meq/ (Premix) 100 mls @ 50 mls/hr IV Q2H PRN PRN Reason: Hypokalemia Potassium Chloride 20 meq/ (Premix) 100 mls @ 50 mls/hr IV Q2H PRN PRN Reason: Hypokalemia Magnesium Sulfate (Magnesium Sulfate In Water 2 Gm/50 Ml) 50 mls @ 25 mls/hr IV ONETIME PRN PRN Reason: low magnesium Last Admin: 02/28/21 20:04 Dose: 25 mls/hr Documented by: Sodium Phosphate 60 mmole/ (Sodium Chloride) 270 mls @ 62.5 mls/hr IV ONETIME PRN PRN Reason: Low phophorus Insulin Regular in 0.9 % NACL (Myxredlin In Ns 100 Unit/100 Ml) 100 mls @ 8.301 mls/hr IV ASDIRECTED [facility]; Protocol Last Infusion: 03/02/21 12:59 Dose: 0.07 units/kg/hr, 6 mls/hr Documented by: Potassium Chloride 20 meq/Lidocaine HCl 2 ml/ Sodium Chloride 112 mls @ 56 mls/hr IV ONETIME ONE Stop: 03/01/21 10:59 Last Admin: 03/01/21 08:50 Dose: 56 mls/hr Documented by: Potassium Chloride 20 meq/Lidocaine HCl 2 ml/ Sodium Chloride 112 mls @ 56 mls/hr IV ONETIME ONE Stop: 03/01/21 13:59 Last Admin: 03/01/21 12:01 Dose: 56 mls/hr Documented by: Potassium Chloride 20 meq/Lidocaine HCl 2 ml/ Sodium Chloride 112 mls @ 56 mls/hr IV ONETIME ONE Stop: 03/01/21 17:59 Last Admin: 03/01/21 16:03 Dose: 56 mls/hr Documented by: Potassium Phosphate (Potassium Phos In Ns 15 Mmol/250 Ml) 250 mls @ 83.333 mls/hr IV ONETIME ONE Stop: 03/01/21 22:40 Last Admin: 03/01/21 20:03 Dose: 83.333 mls/hr Documented by: Potassium Phosphate (Potassium Phos In Ns 15 Mmol/250 Ml) 250 mls @ 83.333 mls/hr IV ONETIME ONE Stop: 03/02/21 01:59 Last Admin: 03/01/21 23:07 Dose: 83.333 mls/hr Documented by: Insulin Regular in 0.9 % NACL (Myxredlin In Ns 100 Unit/100 Ml) 100 mls @ 8.46 mls/hr IV ASDIRECTED [facility]; Protocol Last Infusion: 03/03/21 13:57 Dose: 0.06 units/kg/hr, 5 mls/hr Documented by: Potassium Chloride 20 meq/Lidocaine HCl 2 ml/ Sodium Chloride 112 mls @ 56 mls/hr IV ONETIME ONE Stop: 03/02/21 11:59 Last Admin: 03/02/21 09:43 Dose: 56 mls/hr Documented by: Magnesium Sulfate 2 gm/ Premix 50 mls @ 25 mls/hr IV ONETIME ONE Stop: 03/02/21 11:59 Last Admin: 03/02/21 09:44 Dose: 25 mls/hr Documented by: Potassium Chloride 20 meq/Lidocaine HCl 2 ml/ Sodium Chloride 112 mls @ 56 mls/hr IV ONETIME ONE Stop: 03/02/21 13:59 Last Admin: 03/02/21 11:47 Dose: 56 mls/hr Documented by: Potassium Chloride 20 meq/Lidocaine HCl 2 ml/ Sodium Chloride 112 mls @ 56 mls/hr IV ONETIME ONE Stop: 03/02/21 16:29 Last Admin: 03/02/21 14:34 Dose: 56 mls/hr Documented by: Potassium Chloride 20 meq/Lidocaine HCl 2 ml/ Sodium Chloride 112 mls @ 56 mls/hr IV ONETIME ONE Stop: 03/03/21 13:59 Last Admin: 03/03/21 11:34 Dose: 56 mls/hr Documented by: Potassium Chloride/Sodium Chloride (Normal Saline With 20 Meq Kcl) 1,000 mls @ 75 mls/hr IV ASDIRECTED [facility] Last Admin: 03/05/21 23:17 Dose: 75 mls/hr Documented by: Potassium Chloride 20 meq/Lidocaine HCl 2 ml/ Sodium Chloride 112 mls @ 56 mls/hr IV Q2H [facility] Stop: 03/05/21 13:29 Last Infusion: 03/05/21 15:15 Dose: Infused Documented by: Magnesium Sulfate 2 gm/ Premix 50 mls @ 25 mls/hr IV Q6H [facility] Stop: 03/06/21 16:59 Last Admin: 03/06/21 15:16 Dose: 25 mls/hr Documented by: Insulin Human Isoph/Insulin Regular (Insulin Nph/Insulin Regular,Human 70-30 100 Units/Ml 10 Ml Vial) 15 units SUBCUT BID [facility] Last Admin: 03/04/21 21:08 Dose: 15 units Documented by: Insulin Human Isoph/Insulin Regular (Insulin Nph/Insulin Regular,Human 70-30 100 Units/Ml 10 Ml Vial) 20 units SUBCUT BIDAC [facility] Last Admin: 03/06/21 07:16 Dose: 20 unit Documented by: Insulin Human Regular (Insulin Regular, Human 100 Units/Ml 3 Ml Vial) 3 unit IVPUSH ONETIME ONE Stop: 02/28/21 11:13 Last Admin: 02/28/21 11:53 Dose: 3 units Documented by: Insulin Human Regular (Insulin Regular, Human 100 Units/Ml 3 Ml Vial) 3 unit SUBCUT ONETIME ONE Stop: 02/28/21 11:14 Last Admin: 02/28/21 11:54 Dose: 3 unit Documented by: Lidocaine HCl (Lidocaine 1% 5 Ml Sdv) 2 ml INJECT ONETIME ONE Stop: 02/28/21 20:10 Last Admin: 02/28/21 20:28 Dose: 2 ml Documented by: Lidocaine HCl (Lidocaine 1% 5 Ml Sdv) Confirm Administered Dose 5 ml .ROUTE .STK-MED ONE Stop: 02/28/21 20:16 Last Admin: 02/28/21 20:28 Dose: Not Given Documented by: Lidocaine HCl (Lidocaine 1% 5 Ml Sdv) 2 ml INJECT ONETIME ONE Stop: 03/01/21 03:49 Last Admin: 03/01/21 03:53 Dose: 2 ml Documented by: Lidocaine HCl (Lidocaine 1% 5 Ml Sdv) Confirm Administered Dose 5 ml .ROUTE .STK-MED ONE Stop: 03/01/21 03:50 Last Admin: 03/01/21 03:53 Dose: Not Given Documented by: Lidocaine HCl (Lidocaine 1% 5 Ml Sdv) 2 ml INJECT ONETIME ONE Stop: 03/02/21 05:52 Last Admin: 03/02/21 06:03 Dose: 2 ml Documented by: Lidocaine HCl (Lidocaine 1% 5 Ml Sdv) 2 ml INJECT ONETIME ONE Stop: 03/02/21 18:09 Last Admin: 03/02/21 18:34 Dose: 2 ml Documented by: Lidocaine HCl (Lidocaine 1% 5 Ml Sdv) 2 ml INJECT ONETIME ONE Stop: 03/03/21 01:53 Last Admin: 03/03/21 01:54 Dose: 2 ml Documented by: Lidocaine HCl (Lidocaine 1% 5 Ml Sdv) Confirm Administered Dose 5 ml .ROUTE .STK-MED ONE Stop: 03/03/21 01:53 Last Admin: 03/03/21 01:56 Dose: Not Given Documented by: Lidocaine HCl (Lidocaine 1% 5 Ml Sdv) 2 ml INJECT ONETIME ONE Stop: 03/03/21 05:13 Last Admin: 03/03/21 05:27 Dose: 2 ml Documented by: Lorazepam (Lorazepam 2 Mg/Ml Sdv) 0 mg IV ASDIRECTED [facility]; Protocol Last Admin: 03/05/21 02:11 Dose: 1 mg Documented by: Lorazepam (Lorazepam 1 Mg Tab) 0 mg PO ASDIRECTED [facility]; Protocol Last Admin: 03/06/21 09:00 Dose: 1 mg Documented by: Metoprolol Tartrate (Metoprolol Tartrate 25 Mg Tab) Confirm Administered Dose 25 mg .ROUTE .STK-MED ONE Stop: 03/04/21 18:29 Last Admin: 03/04/21 18:33 Dose: Not Given Documented by: Ondansetron HCl (Ondansetron 4 Mg/2 Ml Sdv) 4 mg IVPUSH ONETIME ONE Stop: 02/28/21 10:24 Last Admin: 02/28/21 10:35 Dose: 4 mg Documented by: Potassium Chloride (Potassium Chloride 10% 20 Meq/15 Ml Soln 15 Ml Ud Cup) 20 meq PO NOW PRN PRN Reason: Hypokalemia Last Admin: 03/01/21 17:24 Dose: 20 meq Documented by: Potassium Chloride (Potassium Chloride 10% 20 Meq/15 Ml Soln 15 Ml Ud Cup) 40 meq PO NOW PRN PRN Reason: Hypokalemia Last Admin: 03/02/21 03:49 Dose: 40 meq Documented by: Potassium Chloride (Potassium Chloride 10% 20 Meq/15 Ml Soln 15 Ml Ud Cup) 40 meq PO Q2H PRN PRN Reason: Hypokalemia
== END 2021-03-07 11:15 | disposition home health service (06) | DRG 438 ==
LOC: JP.ED 09:54 → JP.ICU 13:15
PROVIDERS: ADMIT Hospitalist; ATTEND Internal Medicine
DX: K85.90 Acute pancreatitis without necrosis or infection, unspecified (principal); K85.20 Alcohol induced acute pancreatitis without necrosis or infection; E86.0 Dehydration; E11.10 Type 2 diabetes mellitus with ketoacidosis without coma; I10 Essential (primary) hypertension; I73.9 Peripheral vascular disease, unspecified; F10.231 Alcohol dependence with withdrawal delirium; Z95.820 Peripheral vascular angioplasty status with implants and grafts; E11.22 Type 2 diabetes mellitus with diabetic chronic kidney disease; N18.32 Chronic kidney disease, stage 3b; Z86.010 Personal history of colon polyps; Z79.02 Long term (current) use of antithrombotics/antiplatelets; E11.65 Type 2 diabetes mellitus with hyperglycemia; E78.00 Pure hypercholesterolemia, unspecified; E11.51 Type 2 diabetes mellitus with diabetic peripheral angiopathy without gangrene; K21.9 Gastro-esophageal reflux disease without esophagitis; G89.29 Other chronic pain; M54.9 Dorsalgia, unspecified; Z86.19 Personal history of other infectious and parasitic diseases; Z98.49 Cataract extraction status, unspecified eye; Z79.4 Long term (current) use of insulin; Z79.899 Other long term (current) drug therapy; Z98.51 Tubal ligation status; Z87.891 Personal history of nicotine dependence; I12.9 Hypertensive chronic kidney disease with stage 1 through stage 4 chronic kidney disease, or unspecified chronic kidney disease
CPT/HCPCS: 36415; 74176 ×2; 76705 ×2; 80048; 80053; 82150; 82800; 82947 ×2; 83605; 83690; 83735; 84100; 85025; 86140; 96374; 96375; 99285; J1170 ×2; J1815 ×2; J2405; J7030 ×2; 84132; 85027; 97110-GP; 97162-GP; 97165-GO; 97530-GP; 97535-GP; A9270-GY; J1650; J2001; J2060; J3475; J3480; J7042

== ENCOUNTER 2022-01-02 13:42 | Emergency (ER) | payer MEDICARE, OTHER ==
[2022-01-02] MEDS ORDERED: Sodium Chloride 0.9% 10 ML Syringe FLUSH PRN (14:26)
[2022-01-02] MEDS ORDERED: Metoprolol Tartrate 5 MG/5 ML SDV IVPUSH ONE (14:26)
[2022-01-02 15:04] LABS: TROPONIN I HIGH SENSITIVITY 58.4 pg/mL (<=60.3)
[2022-01-02 15:19] LABS: CORONAVIRUS COVID-19 NAA NEGATIVE (NEGATIVE)
== END 2022-01-02 15:28 | disposition home or self-care (01) ==
LOC: JP.ED 13:42
DX: I48.92 Unspecified atrial flutter (principal); I48.91 Unspecified atrial fibrillation; E78.00 Pure hypercholesterolemia, unspecified; I10 Essential (primary) hypertension; K21.9 Gastro-esophageal reflux disease without esophagitis; E11.9 Type 2 diabetes mellitus without complications; Z79.899 Other long term (current) drug therapy; Z79.02 Long term (current) use of antithrombotics/antiplatelets; Z79.4 Long term (current) use of insulin; Z20.822 Contact with and (suspected) exposure to COVID-19
CPT/HCPCS: 0241U; 36415; 80048; 84484; 85025; 96374; 99283; J3490

== ENCOUNTER 2022-09-15 06:01 | Day surgery (SDC) | payer MEDICARE, OTHER ==
[2022-09-15] MEDS ORDERED: Midazolam 1 MG/ML 2 ML SDV ONE (06:57)
[2022-09-15] MEDS ORDERED: fentaNYL 50 MCG/ML SDV ONE (06:57)
[2022-09-15] MEDS ORDERED: Propofol 200 MG/20 ML SDV ONE ×4 (06:57→09:41)
[2022-09-15] MEDS ORDERED: Dextrose 5%-Lactated Ringers 1,000 ML IV SCH (07:30)
== END 2022-09-15 10:59 | disposition home or self-care (01) ==
LOC: JP.SDS 06:01
PROVIDERS: ATTEND Surgery
DX: Z12.11 Encounter for screening for malignant neoplasm of colon (principal); D12.0 Benign neoplasm of cecum; K64.9 Unspecified hemorrhoids; E11.9 Type 2 diabetes mellitus without complications; I10 Essential (primary) hypertension; E78.00 Pure hypercholesterolemia, unspecified; I48.92 Unspecified atrial flutter; Z80.0 Family history of malignant neoplasm of digestive organs
CPT/HCPCS: 45385; 88305; J2250; J2704; J3010; J7121